=== PATIENT | female | born 1945 | race Caucasian/White ===

== ENCOUNTER 2020-12-22 11:56 | Inpatient (IN) | payer MEDICARE, BC, SELFPAY ==
--- NOTE | ~2020-12-22 | XR_ITS ---
EXAMINATION: XR CHEST CLINICAL INFORMATION: Cough, wheezing COMPARISON: None TECHNIQUE: Upright PA and sitting lateral views of the chest are obtained. FINDINGS: There is no hyperinflation. No airspace consolidation or groundglass opacity. The costophrenic sulci are clear. The heart is normal in size. The vascularity is normal. The hilar and mediastinal contours and bony structures are unremarkable. XR/XR chest 2V IMPRESSION: Unremarkable examination.
--- NOTE | 2020-12-22 15:14 | HO.PSYADMNOT ---
HPI Chief Complaint: Unspec Bipolar D/O Anxiety D/O Sources of Information: patient interviewed, chart reviewed and crisis/core team assessment reviewed HPI Subjective Notes: Section 12B Medical Problems Affecting Mental Status: Yes Narrative: The patient is a 75 year old female, , mother of 2 adult children, retired, with good social support, with a previous history of bipolar disorder, fairly controlled until a few weeks with outpatient providers, referred by the ED for exacerbation of psychosis with hallucinations, disorganized behavior and altered mental status. As per the chart, the patient's reported on the last days that the patient became hostile and disorganized, non-compliant with her medications and urinating on herself and refusing care or performing ADL's; at her baseline, she takes care of herself. She also had psychotic symptoms with hallucinations and paranoia. While in the ED, she was uncooperative and unable to be fully assessed. During the initial intake the patient was verbally abusive and refused to be assessed, she went to sleep and awaken 2 hours after; she was very hungry, she ate and later she was pleasant and cooperative. She was unable to remember her agitated mood. She couldn't remember how she got here or why she was referred to the hospital. She stated that she is here because her knee hurts . She denied current hallucinations or paranoia but she looked confused. Past Psychiatric History: History of bipolar treated as an outpatient. Denies substance abuse Medical Evaluation Reviewed: Hospitalist [facility] Pending She has Parkinson's disease, chronic renal failure and other comorbilities PMFSH Family History: Denies Social History: , mother of 2 adult children, with good social support by her who is her primary support group. Went to college. Substance History: Denies Trauma History: Denies Meds/Allergies Meds Home Medications Acetaminophen (Acetaminophen 325 Mg Tablet) 650 mg PO Q6H PRN PRN Reason: Headache/Pain Mild Scale (1-3) Al Hydroxide/Mg Hydroxide (Magnesium Hydrox/Alum Hydrox 30 Ml Oral.Susp) 30 ml PO Q6H PRN PRN Reason: Heartburn/Nausea Hydroxyzine HCl (Hydroxyzine Hcl 25 Mg Tablet) 25 mg PO BEDTIME PRN PRN Reason: Anxiety Magnesium Hydroxide (Milk Of Magnesia 30 Ml Oral.Susp) 30 ml PO DAILY PRN PRN Reason: Constipation Trazodone HCl (Trazodone Hcl 50 Mg Tablet) 50 mg PO BEDTIME PRN PRN Reason: Insomnia Allergies Allergies Allergy/AdvReac Type Severity Reaction Status Date / Time thioridazine [From Mellaril] Allergy Unknown Unknown Verified 12/22/20 13:25 Mental Status Exam Mental Status Exam Patient Appearance: Fatigued (on hospital gowns) and Disheveled Level of Consciousness: Awake and Disoriented Patient Behavior: Cooperative and Restless Mood Description: Withdrawn Affect Description: Labile Patient Cognition Impaired: No Speech Pattern: Clear and Rapid Hallucinations: None (at this moment) Delusions: Not Present Thought Process: Distracted and Slowed Thinking Thought Content: positive for Poverty of Content, positive for Slowed Thinking and positive for Disorganized Abnormal Motor Activity Signs and Symptoms: Psychomotor Retardation Judgement: Poor Assessment & Plan Assessment & Plan (1) Bipolar disorder: Status: Acute Code(s): F31.9 - Bipolar disorder, unspecified (2) Delirium: Status: Acute Code(s): R41.0 - Disorientation, unspecified (3) Parkinson disease: Status: Acute Code(s): G20 - Parkinson's disease Assessment and Plan: Elderly female with good social support with the history of Bipolar disorder, Parkinson's disease and admitted for acute changes on her mental status with psychotic symptoms, unable to take care of her ADL's and agitation. Plan: Continue Zyprexa 5 mg po qhs and Depakote. Gather collateral information. VALP and other bloodwork. Reason for continued inpatient stay Substantial Risk for: harm to self, harm to others, inability to function, rapid decompensation and med/psych decompensation
--- NOTE | 2020-12-22 16:43 | PC.NURSE ---
Addendum entered by Genevieve Berg RN 12/22/20 17:04: Patient has a history of Parkinsons disease and suffers from tremors which will require her to need assist with feeding. Original Note: Patient arrived on unit via stretcher from [facility] through [facility]. Legal status is 12B. Patient was oriented to self only. Upon arrival patient was refusing to speak and when she did she was agitated and uncooperative. She was admitted to her room and settled into bed. Oriented to room. Refused vitals and also refused to participate in admission assessment. Patient had strong body odor. Very flaky dry skin. Hair dirty and disheveled. Wearing hospital gown and bottoms with R knee brace on the outside. No observable alteration to skin integrity other than dryness. Patient uses a walker and is a one assist to BR. She was instructed almond paste mixer griffith and did use it to call for help when she needed to use bathroom. Speech was clear however memory is not intact. Patient has a recent history of Auditory Hallucinations , insomnia, anxiety and agitation. 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 She lives at home with her and the plan is to return to home following medication stabilization and diagnostic clarification. Patient did allow vital signs to be taken and began to open up slightly to staff. Admission assessment was completed with collateral information and through phone conversation with . Consult with hospitalist ordered. Routine admission orders entered by Dr. Turner. Patient to be on 5 minute checks.
[2020-12-22 18:00] VITALS: BP 122/59; PULSE 91; RESP 16; TEMP 36.5; O2SAT 96
[2020-12-22] MEDS: Carbidopa/Levodopa 25/100 TABLET 1 TAB PO (20:41)
[2020-12-22] MEDS: OLANZapine 5 MG TABLET PO (20:41)
[2020-12-22] MEDS: Acetaminophen 325 MG TABLET 650 MG PO (20:57)
[2020-12-22 21:50] LABS: Glucose, Whole Blood 125 mg/dL (60-115)
[2020-12-23] MEDS: Levothyroxine Sodium 75 MCG TABLET PO (05:36)
[2020-12-23 06:00] VITALS: BP 124/64; PULSE 81; RESP 18; TEMP 36.4; O2SAT 98
[2020-12-23 07:11] LABS: Estimated Average Glucose 117 mg/dL; Hemoglobin A1c % 5.7 %
[2020-12-23 07:29] LABS: Alanine Aminotransferase < 6 U/L (0-31); Albumin Level 3.7 g/dL (3.5-5.0); Alkaline Phosphatase 73 U/L (39-117); Anion Gap 13 (12-20); Aspartate Amino Transferase 8 U/L (5-31); Bilirubin Direct 0.2 mg/dL (0.0-0.5); Bilirubin Total 0.5 mg/dL (0.0-1.0); Blood Urea Nitrogen 29 mg/dL (9-16); Calcium 10.1 mg/dL (8.4-10.2); Carbon Dioxide 24 mmol/L (22-29); Chloride 111 mmol/L (96-108); Cholesterol 157 mg/dL; Estimated Glomerular Filt Rate 18; Glucose Random 102 mg/dL (60-115); HDL Cholesterol 43 mg/dL; LDL Cholesterol Calculated 92 mg/dl; Potassium 4.2 mmol/L (3.3-5.1); Sodium 144 mmol/L (135-145); Total Protein 6.1 g/dL (6.5-8.0); Triglycerides 114 mg/dL
[2020-12-23 07:35] LABS: Valproate 35.8 mcg/mL (50.0-100.0)
[2020-12-23 07:49] LABS: Thyroid Stimulating Hormone 0.43 uIU/mL (0.32-4.0)
[2020-12-23 08:47] VITALS: BP 126/60; PULSE 78
[2020-12-23] MEDS: amLODIPine Besylate 2.5 MG TABLET PO (08:47)
[2020-12-23] MEDS: Carbidopa/Levodopa 25/100 TABLET 1 TAB PO ×3 (08:47→21:08)
[2020-12-23] MEDS: Folic Acid 1 MG TABLET PO (08:47)
[2020-12-23] MEDS: Acetaminophen 325 MG TABLET 650 MG PO (09:22)
[2020-12-23 10:11] LABS: Glucose, Whole Blood 198 mg/dL (60-115)
--- NOTE | 2020-12-23 13:18 | P.PNPSI_ITS ---
Subjective Subjective Date of Service: 12/23/20 Reason For Visit: Unspec Bipolar D/O Anxiety D/O Interim History: The patient was agitated today at AM with the hospitalist and refused to be examined. She complained of knee pain. Her Depakote level was low today AM and CR on 2.65 (chronic). Mental Status Exam Mental Status Exam Patient Appearance: Disheveled (on hospital gowns) Patient Orientation: Person Level of Consciousness: Awake, Sedated and Disoriented Patient Behavior: Belligerent and Sedated Mood Description: Fearful and Hostile Affect Description: Constricted Patient Cognition Impaired: Yes Ability to Follow Directions: Poor Speech Pattern: Loud Hallucinations: None Delusions: Paranoid Ideation Thought Process: Illogical Thought Content: positive for [place] and positive for Circumstantial Judgement: Poor Diagnostics Vital Signs (24Hr): Vital Signs - 24 hr 12/22/20 18:00 12/23/20 06:00 12/23/20 08:47 Temperature 97.7 F 97.5 F Pulse Rate 91 81 78 Respiratory Rate 16 18 Blood Pressure 122/59 L 124/64 126/60 Pulse Oximetry 96 98 Labs Results: 12/23/20 06:42 Labs: Laboratory Results - last 48 hr 12/22/20 12/23/20 12/23/20 21:46 06:42 06:42 Sodium 144 Potassium 4.2 Chloride 111 H Carbon Dioxide 24 Anion Gap 13 BUN 29 H Creatinine 2.65 H Estim Creat Clear Calc TNP Estimated GFR 18 POC Glucose 125 H Random Glucose 102 Estimat Average Glucose 117 Hemoglobin A1c % 5.7 Calcium 10.1 Total Bilirubin 0.5 Direct Bilirubin 0.2 AST 8 ALT < 6 Alkaline Phosphatase 73 Total Protein 6.1 L Albumin 3.7 Triglycerides 114 Cholesterol 157 LDL Cholesterol, Calc 92 HDL Cholesterol 43 TSH 0.43 Valproic Acid 35.8 L 12/23/20 10:08 Sodium Potassium Chloride Carbon Dioxide Anion Gap BUN Creatinine Estim Creat Clear Calc Estimated GFR POC Glucose 198 H Random Glucose Estimat Average Glucose Hemoglobin A1c % Calcium Total Bilirubin Direct Bilirubin AST ALT Alkaline Phosphatase Total Protein Albumin Triglycerides Cholesterol LDL Cholesterol, Calc HDL Cholesterol TSH Valproic Acid Medications Medications Current Medications Generic Name Dose Route Start Last Admin Trade Name Freq PRN Reason Stop Dose Admin Acetaminophen 650 mg 12/22/20 14:39 12/23/20 09:22 Acetaminophen 325 Mg Tablet PO 650 mg Q6H PRN Administration Headache/Pain Mild Scale (1-3) Al Hydroxide/Mg Hydroxide 30 ml 12/22/20 14:39 Magnesium Hydrox/Alum Hydrox 30 Ml Oral.Susp PO Q6H PRN Heartburn/Nausea Amlodipine Besylate 2.5 mg 12/23/20 09:00 12/23/20 08:47 Amlodipine Besylate 2.5 Mg Tablet PO 2.5 mg DAILY ANSHUL Administration Protocol Carbidopa/Levodopa 1 tab 12/22/20 21:00 12/23/20 08:47 Carbidopa/Levodopa 25/100 Tablet PO 1 tab TID ANSHUL Administration Folic Acid 1 mg 12/23/20 09:00 12/23/20 08:47 Folic Acid 1 Mg Tablet PO 1 mg DAILY ANSHUL Administration Hydroxyzine HCl 25 mg 12/22/20 14:39 Hydroxyzine Hcl 25 Mg Tablet PO BEDTIME PRN Anxiety Levothyroxine Sodium 75 mcg 12/23/20 06:00 12/23/20 05:36 Levothyroxine Sodium 75 Mcg Tablet PO 75 mcg DAILY@0600 [facility] Administration Magnesium Hydroxide 30 ml 12/22/20 14:39 Milk Of Magnesia 30 Ml Oral.Susp PO DAILY PRN Constipation Olanzapine 7.5 mg 12/23/20 21:00 Olanzapine 7.5 Mg Tablet PO BEDTIME ANSHUL Trazodone HCl 50 mg 12/22/20 14:39 Trazodone Hcl 50 Mg Tablet PO BEDTIME PRN Insomnia Valproic Acid 250 mg 12/23/20 15:00 Valproic Acid (As Sodium Salt) 250 Mg/5 Ml Solution PO TID [facility] Allergies Allergies Allergy/AdvReac Type Severity Reaction Status Date / Time thioridazine [From Mellaril] Allergy Unknown Unknown Verified 12/22/20 13:25 Assessment & Plan Assessment & Plan (1) Bipolar disorder: Status: Acute Code(s): F31.9 - Bipolar disorder, unspecified (2) Delirium: Status: Acute Code(s): R41.0 - Disorientation, unspecified (3) Parkinson disease: Status: Acute Code(s): G20 - Parkinson's disease Assessment and Plan: Elderly female with good social support with the history of Bipolar disorder, Parkinson's disease and admitted for acute changes on her mental status with psychotic symptoms, unable to take care of her ADL's and agitation. Plan: Increase Zyprexa up to 7.5 mg po qhs Increase Depakene up to 250 mg po tid. Gather collateral information. VALP for Saturday Greater than 50% of the session was spent on counseling and/or coordination of care Reason for contiued inpatient stay Substantial Risk for: harm to self, harm to others, inability to function, rapid decompensation and med/psych decompensation
--- NOTE | 2020-12-23 13:43 | MHC.CLN ---
NUTRITION PATIENT ASLEEP AT TIME OF VISIT. NO HEIGHT OR WEIGHT RECORDED BUT APPEARS WELL NOURISHED. DID NOT EAT LUNCH. 2-13# WEIGHT LOSS PER NURSING BUT UNABLE TO DETERMINE AMOUNT OR TIMEFRAME. MEDICAL HX INCLUDES PARKINSON'S AND CHRONIC RENAL FAILURE. POC BLOOD SLFXRV=[id number] AND 198. DIET=LOW SODIUM, 2 GRAM SODIUM. WILL FOLLOW UP FOR WEIGHT, HEIGHT, THERAPEUTIC DIET.
[2020-12-23 16:01] VITALS: BP 96/52; PULSE 84; RESP 18; TEMP 36.6; O2SAT 94
[2020-12-23 18:47] LABS: Folate 19.7 ng/mL (> or = 4.0); Vitamin B12 276 pg/mL (200-900)
[2020-12-23] MEDS: OLANZapine 7.5 MG TABLET PO (21:08)
--- NOTE | 2020-12-23 21:13 | CONS_ITS ---
DATE OF SERVICE: 12/23/2020 REASON FOR CONSULTATION: Medical management for kidney disease, Parkinson disease, and knee pain. CONSULTING PHYSICIAN: Juan F Turner MD HISTORY OF PRESENTING ILLNESS: This is a 75-year-old female patient with past medical history significant for bipolar disorder, was brought into [facility] due to exacerbation of psychosis with hallucination, disorganized behavior, and altered mental status. At present, the patient is resting in bed, complaining of knee pain, but upon asking further questions how long she has pain for and when the pain occurs, patient became more agitated and refused to provide any further detailed history and she refused to talk any further and also refused examination. Therefore, obtained most of the history from admission note. PAST MEDICAL HISTORY: Significant for, 1. Parkinson disease. 2. History of chronic kidney disease. 3. History of bipolar disorder. SOCIAL HISTORY: The patient lives at home with her . No history of smoking or illicit drug use. MEDICATIONS: Tylenol 325 q.4-6 hours as needed, amlodipine 5 mg daily, carbidopa/levodopa 25/100 t.i.d., vitamin D3 1000 unit daily, folic acid 1 mg daily, levothyroxine 75 mcg daily, Myrbetriq 25 by mouth daily, olanzapine 5 mg daily, sodium bicarbonate 650 b.i.d., and valproic acid 750 mg b.i.d. ALLERGIES: SHE IS ALLERGIC TO THIORIDAZINE (MELLARIL), UNKNOWN ALLERGY. REVIEW OF SYSTEMS: Unable to obtain, although patient denies any headache, dizziness, no chest pain. PHYSICAL EXAMINATION: Patient only allowed to examine her knees. KNEE EXAMINATION: Right knee, patient has a brace on that was removed. The right knee has no redness, no warmth. No effusion noted. The patient does not allow to do any further detailed examination, refused flexion or extension. LABORATORY DATA: Sodium 144, potassium 4.2, chloride 111, bicarb of 24, BUN 29, creatinine of 2.65, blood sugar 198, hemoglobin A1c of 5.7, total protein 6.1, albumin 3.7, total cholesterol 157 with an HDL of 43, LDL 92, TSH 0.43. IMAGING STUDIES: None obtained. ASSESSMENT AND PLAN: This is a 75-year-old female admitted to [facility] due to exacerbation of psychosis. 1. Knee pain. It seems patient has chronic degenerative arthritis. Symptoms are going on for a long time, there is no evidence of acute infection, septic arthritis, or gout. No tenderness on anserine bursitis. We will recommend to use Tylenol 3 times a day, continue to use a knee brace during daytime and remove at night. Outpatient followup with Orthopedic Surgery. 2. Chronic kidney disease. Try to avoid nephrotoxic medications. Continue soda bicarb 650 mg t.i.d. Recommend outpatient followup with her agricultural appraiser. 3. Parkinson disease. The patient does not have any tremor. Speech is clear. Recommend to continue current medications, although could be contributing to current psychosis and hallucinations, needs to be addressed by the patient's primary neurologist. 4. Deep vein thrombosis prophylaxis. The patient will need deep vein thrombosis prophylaxis. If unable to ambulate, may use pneumatic compression boots on low-dose heparin. MD SABINO Agrawal/MANISHA / [id number] MTDD
[2020-12-24] MEDS: traZODone HCL 50 MG TABLET PO ×2 (01:56→19:45)
[2020-12-24] MEDS: Acetaminophen 325 MG TABLET 650 MG PO ×2 (03:29→19:45)
[2020-12-24] MEDS: hydrOXYzine HCL 25 MG TABLET PO ×2 (03:37→19:45)
[2020-12-24 05:53] LABS: Glucose, Whole Blood 127 mg/dL (60-115)
[2020-12-24] MEDS: Levothyroxine Sodium 75 MCG TABLET PO (05:54)
[2020-12-24 06:00] VITALS: BP 125/60; PULSE 98; TEMP 35.9; O2SAT 98
[2020-12-24] MEDS: Carbidopa/Levodopa 25/100 TABLET 1 TAB PO ×3 (08:31→19:45)
[2020-12-24 08:32] VITALS: BP 125/60; PULSE 98
[2020-12-24] MEDS: Folic Acid 1 MG TABLET PO (08:32)
[2020-12-24] MEDS: amLODIPine Besylate 2.5 MG TABLET PO (08:32)
--- NOTE | 2020-12-24 16:12 | PC.NURSE ---
Patient refused to get out of bed this shift. When asked to do anything she would reply, leave me alone or you are going to and I have the power to kill you. She refuses any hygiene assistance. She will not engage at all. She has been med compliant. Hospitalist suggested Pneumatic boots if patient was going to remain in bed. Orders not in yet. Unable to collect urine for urinalysis at this time. Fine tremors noted due to history of Parkinsons. 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
[2020-12-24 17:32] VITALS: BP 127/67; PULSE 95; RESP 16; TEMP 36.9; O2SAT 97
[2020-12-24] MEDS: OLANZapine 7.5 MG TABLET PO (19:45)
[2020-12-24 20:10] LABS: Hemoglobin 10.2 g/dl (12.0-16.0); Mean Corpuscular HGB Conc 31.9 g/dl (31.0-35.0); Mean Corpuscular Hemoglobin 30.6 pg (27.0-33.0); Mean Corpuscular Volume 96.1 fL (80-98); Platelet Count 213 X10*3/uL (160-400); Red Blood Count 3.33 X10*6/uL (4.20-5.50); Red Cell Distribution Width 12.4 % (11.0-16.0); White Blood Count 7.5 X10*3/uL (4.8-10.8)
--- NOTE | 2020-12-25 00:01 | HO.PSYCHPN ---
Subjective Subjective Date of Service: 12/25/20 Reason For Visit: Unspec Bipolar D/O Anxiety D/O Interim History: This note reflects events on 12/24/20 Patient seen. DW team. [facility] medicine. Patient is isolated in her room. Refuses to leave the room. She is difficult to engage. She is irritable. Medication Compliance: Yes Side effects from medications: No Attending Groups: No Mental Status Exam Mental Status Exam Patient Appearance: Disheveled (on hospital gowns) Patient Orientation: Person Level of Consciousness: Awake, Sedated and Disoriented Patient Behavior: Guarded, Belligerent, Sedated, Resistive to Care, Isolative, Uncooperative and Poor Eye Contact Mood Description: Fearful, Hostile and Angry Affect Description: Suspicious, Constricted and Angry Patient Cognition Impaired: Yes Ability to Follow Directions: Poor Speech Pattern: Loud Hallucinations: None Delusions: Paranoid Ideation Thought Content: positive for Poverty of Content and positive for Slowed Thinking Abnormal Motor Activity Signs and Symptoms: Psychomotor Retardation Judgement: Poor Diagnostics Vital Signs (24Hr): Vital Signs - 24 hr 12/24/20 06:00 12/24/20 08:32 12/24/20 17:32 Temperature 96.6 F L 98.5 F Pulse Rate 98 98 95 Respiratory Rate 16 Blood Pressure 125/60 125/60 127/67 Pulse Oximetry 98 97 Labs Results: 12/24/20 19:51 12/23/20 06:42 Labs: Laboratory Results - last 48 hr 12/23/20 12/23/20 12/23/20 06:42 06:42 06:42 WBC RBC Hgb Hct MCV MCH MCHC RDW Plt Count MPV Absolute Nucleated RBC Nucleated RBC % (auto) Sodium 144 Potassium 4.2 Chloride 111 H Carbon Dioxide 24 Anion Gap 13 BUN 29 H Creatinine 2.65 H Estim Creat Clear Calc TNP Estimated GFR 18 POC Glucose Random Glucose 102 Estimat Average Glucose 117 Hemoglobin A1c % 5.7 Calcium 10.1 Total Bilirubin 0.5 Direct Bilirubin 0.2 AST 8 ALT < 6 Alkaline Phosphatase 73 Total Protein 6.1 L Albumin 3.7 Triglycerides 114 Cholesterol 157 LDL Cholesterol, Calc 92 HDL Cholesterol 43 Vitamin B12 276 Folate 19.7 TSH 0.43 Valproic Acid 35.8 L 12/23/20 12/24/20 12/24/20 10:08 05:49 19:51 WBC 7.5 RBC 3.33 L Hgb 10.2 L Hct 32.0 L MCV 96.1 MCH 30.6 MCHC 31.9 RDW 12.4 Plt Count 213 MPV 10.0 Absolute Nucleated RBC 0.000 Nucleated RBC % (auto) 0.0 Sodium Potassium Chloride Carbon Dioxide Anion Gap BUN Creatinine Estim Creat Clear Calc Estimated GFR POC Glucose 198 H 127 H Random Glucose Estimat Average Glucose Hemoglobin A1c % Calcium Total Bilirubin Direct Bilirubin AST ALT Alkaline Phosphatase Total Protein Albumin Triglycerides Cholesterol LDL Cholesterol, Calc HDL Cholesterol Vitamin B12 Folate TSH Valproic Acid Medications Medications Current Medications Generic Name Dose Route Start Last Admin Trade Name Freq PRN Reason Stop Dose Admin Acetaminophen 650 mg 12/22/20 14:39 12/24/20 19:45 Acetaminophen 325 Mg Tablet PO 650 mg Q6H PRN Administration Headache/Pain Mild Scale (1-3) Al Hydroxide/Mg Hydroxide 30 ml 12/22/20 14:39 Magnesium Hydrox/Alum Hydrox 30 Ml Oral.Susp PO Q6H PRN Heartburn/Nausea Amlodipine Besylate 2.5 mg 12/23/20 09:00 12/24/20 08:32 Amlodipine Besylate 2.5 Mg Tablet PO 2.5 mg DAILY ANSHUL Administration Protocol Carbidopa/Levodopa 1 tab 12/22/20 21:00 12/24/20 19:45 Carbidopa/Levodopa 25/100 Tablet PO 1 tab TID ANSHUL Administration Folic Acid 1 mg 12/23/20 09:00 12/24/20 08:32 Folic Acid 1 Mg Tablet PO 1 mg DAILY ANSHUL Administration Hydroxyzine HCl 25 mg 12/22/20 14:39 12/24/20 19:45 Hydroxyzine Hcl 25 Mg Tablet PO 25 mg BEDTIME PRN Administration Anxiety Levothyroxine Sodium 75 mcg 12/23/20 06:00 12/24/20 05:54 Levothyroxine Sodium 75 Mcg Tablet PO 75 mcg DAILY@0600 ANSHUL Administration Magnesium Hydroxide 30 ml 12/22/20 14:39 Milk Of Magnesia 30 Ml Oral.Susp PO DAILY PRN Constipation Olanzapine 7.5 mg 12/23/20 21:00 12/24/20 19:45 Olanzapine 7.5 Mg Tablet PO 7.5 mg BEDTIME ANSHUL Administration Trazodone HCl 50 mg 12/22/20 14:39 12/24/20 19:45 Trazodone Hcl 50 Mg Tablet PO 50 mg BEDTIME PRN Administration Insomnia Valproic Acid 250 mg 12/23/20 15:00 12/24/20 19:45 Valproic Acid (As Sodium Salt) 250 Mg/5 Ml Solution PO 250 mg TID ANSHUL Administration Allergies Allergies Allergy/AdvReac Type Severity Reaction Status Date / Time thioridazine [From Mellaril] Allergy Unknown Unknown Verified 12/22/20 13:25 Assessment & Plan Assessment & Plan (1) Bipolar disorder: Status: Acute Code(s): F31.9 - Bipolar disorder, unspecified (2) Delirium: Status: Acute Code(s): R41.0 - Disorientation, unspecified (3) Parkinson disease: Status: Acute Code(s): G20 - Parkinson's disease Assessment and Plan: Elderly female with good social support with the history of Bipolar disorder, Parkinson's disease and admitted for acute changes on her mental status with psychotic symptoms, unable to take care of her ADL's and agitation. Plan: Zyprexa 7.5 mg po qhs Depakene up to 250 mg po tid. Gather collateral information. VALP for Saturday Greater than 50% of the session was spent on counseling and/or coordination of care Reason for contiued inpatient stay Substantial Risk for: inability to function and rapid decompensation
[2020-12-25] MEDS: traZODone HCL 50 MG TABLET PO ×3 (00:23→23:44)
[2020-12-25 02:11] LABS: Glucose, Whole Blood 149 mg/dL (60-115)
[2020-12-25] MEDS: Levothyroxine Sodium 75 MCG TABLET PO (05:15)
[2020-12-25 06:00] VITALS: BP 123/60; PULSE 81; RESP 16; TEMP 36.7; O2SAT 98
[2020-12-25 08:43] VITALS: BP 127/62; PULSE 100
[2020-12-25] MEDS: Carbidopa/Levodopa 25/100 TABLET 1 TAB PO ×3 (08:43→20:34)
[2020-12-25] MEDS: Folic Acid 1 MG TABLET PO (08:43)
[2020-12-25] MEDS: amLODIPine Besylate 2.5 MG TABLET PO (08:43)
[2020-12-25 08:53] VITALS: BP 127/62; PULSE 100; RESP 16; TEMP 36.7; O2SAT 95
[2020-12-25 09:24] LABS: Glucose Urine UA NEG (NEG); Leukocyte Esterase Urine 3+ (NEG); Nitrite Urine NEG (NEG); Urine Blood NEG (NEG); Urine Ketones NEG (NEG); Urine Protein NEG (NEG-TRACE)
[2020-12-25 09:52] LABS: Appearance Urine HAZY; Color Urine YELLOW
[2020-12-25 09:53] LABS: Bacteria Urine 2+ /LPF; RBC Urine 0 /HPF (0); Squamous Epithelial Cell Urine 1+ /LPF; WBC Urine 30-49 /HPF (0-4)
[2020-12-25 10:03] LABS: Glucose, Whole Blood 149 mg/dL (60-115)
--- NOTE | 2020-12-25 12:49 | PC.NURSE ---
Patient extremely agitated this shift when this cardroom manager attempts any interaction with her. That being said, she did get out of bed x2 to go to . She initially was uncooperative and did not want to do it but eventually agreed. She continues to yell, You are going to , my gods are going to kill you. She was washed up this morning while on the Toilet and changed into clean gown. She is compliant with meds after initally resisting. Her appetite is good. She exhibits fine Parkinsons tremors but is able to feed herself without assist. Valproic acid level 35.8 .(low) Hair is matted and very dirty but have not been able to get patient into shower at this time.
[2020-12-25] MEDS: Acetaminophen 325 MG TABLET 650 MG PO ×2 (13:27→20:33)
--- NOTE | 2020-12-25 14:06 | HO.PSYCHPN ---
Subjective Subjective Date of Service: 12/25/20 Reason For Visit: Unspec Bipolar D/O Anxiety D/O Interim History: Patient seen. DW team. Patient is isolated in her room. Refuses to leave the room. She is difficult to engage. She is irritable. She was incontinent of urine x 2. refusing wheelchair to leave the room. Gets angry at nursing and told one of the nurses she is going to . Platelets were normal. Mental Status Exam Mental Status Exam Patient Appearance: Disheveled (on hospital gowns) Patient Orientation: Person Level of Consciousness: Awake, Sedated and Disoriented Patient Behavior: Guarded, Belligerent, Sedated, Resistive to Care, Isolative, Uncooperative and Poor Eye Contact Mood Description: Fearful, Hostile and Angry Affect Description: Suspicious, Constricted and Angry Patient Cognition Impaired: Yes Ability to Follow Directions: Poor Speech Pattern: Clear, Impoverished and Loud Delusions: Paranoid Ideation Thought Process: Slowed Thinking Thought Content: positive for Poverty of Content, positive for Preoccupation and positive for Slowed Thinking Depressive Symptoms: Hopelessness and Isolating-Friends/Family Abnormal Motor Activity Signs and Symptoms: Psychomotor Retardation and Tremors Judgement: Poor Diagnostics Vital Signs (24Hr): Vital Signs - 24 hr 12/24/20 17:32 12/25/20 06:00 12/25/20 08:43 Temperature 98.5 F 98.1 F Pulse Rate 95 81 100 Respiratory Rate 16 16 Blood Pressure 127/67 123/60 127/62 Pulse Oximetry 97 98 12/25/20 08:53 Temperature 98.0 F Pulse Rate 100 Respiratory Rate 16 Blood Pressure 127/62 Pulse Oximetry 95 Labs Results: 12/24/20 19:51 12/23/20 06:42 Labs: Laboratory Results - last 48 hr 12/23/20 12/24/20 12/24/20 06:42 05:49 19:51 WBC 7.5 RBC 3.33 L Hgb 10.2 L Hct 32.0 L MCV 96.1 MCH 30.6 MCHC 31.9 RDW 12.4 Plt Count 213 MPV 10.0 Absolute Nucleated RBC 0.000 Nucleated RBC % (auto) 0.0 POC Glucose 127 H Vitamin B12 276 Folate 19.7 Urine Color Urine Appearance Urine pH Ur Specific [place] Urine Protein Urine Glucose (UA) Urine Ketones Urine Blood Urine Nitrite Ur Leukocyte Esterase Urine RBC Urine WBC Ur Squamous Epith Cells Urine Bacteria 12/24/20 12/25/20 12/25/20 21:03 09:58 Unknown WBC RBC Hgb Hct MCV MCH MCHC RDW Plt Count MPV Absolute Nucleated RBC Nucleated RBC % (auto) POC Glucose 149 H 149 H Vitamin B12 Folate Urine Color YELLOW Urine Appearance HAZY Urine pH 6.0 Ur Specific [place] 1.010 Urine Protein NEG Urine Glucose (UA) NEG Urine Ketones NEG Urine Blood NEG Urine Nitrite NEG Ur Leukocyte Esterase 3+ H Urine RBC 0 Urine WBC 30-49 H Ur Squamous Epith Cells 1+ Urine Bacteria 2+ Medications Medications Current Medications Generic Name Dose Route Start Last Admin Trade Name Freq PRN Reason Stop Dose Admin Acetaminophen 650 mg 12/22/20 14:39 12/25/20 13:27 Acetaminophen 325 Mg Tablet PO 650 mg Q6H PRN Administration Headache/Pain Mild Scale (1-3) Al Hydroxide/Mg Hydroxide 30 ml 12/22/20 14:39 Magnesium Hydrox/Alum Hydrox 30 Ml Oral.Susp PO Q6H PRN Heartburn/Nausea Amlodipine Besylate 2.5 mg 12/23/20 09:00 12/25/20 08:43 Amlodipine Besylate 2.5 Mg Tablet PO 2.5 mg DAILY ANSHUL Administration Protocol Carbidopa/Levodopa 1 tab 12/22/20 21:00 12/25/20 08:43 Carbidopa/Levodopa 25/100 Tablet PO 1 tab TID ANSHUL Administration Folic Acid 1 mg 12/23/20 09:00 12/25/20 08:43 Folic Acid 1 Mg Tablet PO 1 mg DAILY ANSHUL Administration Hydroxyzine HCl 25 mg 12/22/20 14:39 12/24/20 19:45 Hydroxyzine Hcl 25 Mg Tablet PO 25 mg BEDTIME PRN Administration Anxiety Levothyroxine Sodium 75 mcg 12/23/20 06:00 12/25/20 05:15 Levothyroxine Sodium 75 Mcg Tablet PO 75 mcg DAILY@0600 ANSHUL Administration Magnesium Hydroxide 30 ml 12/22/20 14:39 Milk Of Magnesia 30 Ml Oral.Susp PO DAILY PRN Constipation Medication 5,000 each 12/25/20 09:15 No Anticoagulant-Heparin Sq Ok MISCELLANE BID ANSHUL Olanzapine 7.5 mg 12/23/20 21:00 12/24/20 19:45 Olanzapine 7.5 Mg Tablet PO 7.5 mg BEDTIME ANSHUL Administration Trazodone HCl 50 mg 12/22/20 14:39 12/25/20 00:23 Trazodone Hcl 50 Mg Tablet PO 50 mg BEDTIME PRN Administration Insomnia Valproic Acid 250 mg 12/23/20 15:00 12/25/20 08:43 Valproic Acid (As Sodium Salt) 250 Mg/5 Ml Solution PO 250 mg TID ANSHUL Administration Allergies Allergies Allergy/AdvReac Type Severity Reaction Status Date / Time thioridazine [From Mellaril] Allergy Unknown Unknown Verified 12/22/20 13:25 Assessment & Plan Assessment & Plan (1) Bipolar disorder: Status: Acute Code(s): F31.9 - Bipolar disorder, unspecified (2) Delirium: Status: Acute Code(s): R41.0 - Disorientation, unspecified (3) Parkinson disease: Status: Acute Code(s): G20 - Parkinson's disease Assessment and Plan: Elderly female with good social support with the history of Bipolar disorder, Parkinson's disease and admitted for acute changes on her mental status with psychotic symptoms, unable to take care of her ADL's and agitation. Plan: Zyprexa 7.5 mg po qhs Depakene up to 250 mg po tid. Gather collateral information. VALP for Saturday Started on heparin SQ for DVT prophylaxis. Greater than 50% of the session was spent on counseling and/or coordination of care Reason for contiued inpatient stay Substantial Risk for: inability to function and rapid decompensation
[2020-12-25 18:00] VITALS: BP 110/66; PULSE 99; RESP 16; TEMP 36.9; O2SAT 96
[2020-12-25] MEDS: OLANZapine 7.5 MG TABLET PO (20:34)
[2020-12-25] MEDS: hydrOXYzine HCL 25 MG TABLET PO (20:34)
[2020-12-25 23:04] LABS: Glucose, Whole Blood 136 mg/dL (60-115)
[2020-12-26] MEDS: Acetaminophen 325 MG TABLET 650 MG PO ×2 (02:11→07:44)
[2020-12-26 06:00] VITALS: BP 114/56; PULSE 86; TEMP 36.8; O2SAT 92
[2020-12-26] MEDS: Heparin Sodium,Porcine 5,000 UNIT/ML VIAL 5000 UNIT SUBCUT (06:30)
[2020-12-26] MEDS: Levothyroxine Sodium 75 MCG TABLET PO (06:31)
--- NOTE | 2020-12-26 08:06 | P.PNPSI_ITS ---
Subjective Subjective Date of Service: 12/26/20 Reason For Visit: Unspec Bipolar D/O Anxiety D/O Interim History: The patient has been threatening staff you are going to . She complained of knee pain mostly at HS. She was assessed at bedside and she looked confused. U/A positive for leukocitosis and blood. valp is low Review of Systems Acute medical concerns: Yes UTI Medical Review of Systems: changed Mental Status Exam Mental Status Exam Patient Appearance: Appropriate (on hospital gowns) Patient Orientation: Person Level of Consciousness: Drowsy and Sedated Patient Behavior: Guarded Mood Description: Suspicious and Withdrawn Affect Description: Constricted Patient Cognition Impaired: Yes Speech Pattern: Clear Memory Description: Remote Impaired and Immediate Impaired Hallucinations: None Delusions: Paranoid Ideation and Grandiose Thought Process: Distracted Thought Content: positive for Circumstantial and positive for Loose Associations Judgement: Poor Diagnostics Vital Signs (24Hr): Vital Signs - 24 hr 12/25/20 08:43 12/25/20 08:53 12/25/20 18:00 Temperature 98.0 F 98.5 F Pulse Rate 100 100 99 Respiratory Rate 16 16 Blood Pressure 127/62 127/62 110/66 Pulse Oximetry 95 96 12/26/20 06:00 Temperature 98.2 F Pulse Rate 86 Respiratory Rate Blood Pressure 114/56 L Pulse Oximetry 92 Labs Results: 12/24/20 19:51 12/23/20 06:42 Labs: Laboratory Results - last 48 hr 12/24/20 12/24/20 12/25/20 19:51 21:03 09:58 WBC 7.5 RBC 3.33 L Hgb 10.2 L Hct 32.0 L MCV 96.1 MCH 30.6 MCHC 31.9 RDW 12.4 Plt Count 213 MPV 10.0 Absolute Nucleated RBC 0.000 Nucleated RBC % (auto) 0.0 POC Glucose 149 H 149 H Urine Color Urine Appearance Urine pH Ur Specific [place] Urine Protein Urine Glucose (UA) Urine Ketones Urine Blood Urine Nitrite Ur Leukocyte Esterase Urine RBC Urine WBC Ur Squamous Epith Cells Urine Bacteria 12/25/20 12/25/20 22:59 Unknown WBC RBC Hgb Hct MCV MCH MCHC RDW Plt Count MPV Absolute Nucleated RBC Nucleated RBC % (auto) POC Glucose 136 H Urine Color YELLOW Urine Appearance HAZY Urine pH 6.0 Ur Specific [place] 1.010 Urine Protein NEG Urine Glucose (UA) NEG Urine Ketones NEG Urine Blood NEG Urine Nitrite NEG Ur Leukocyte Esterase 3+ H Urine RBC 0 Urine WBC 30-49 H Ur Squamous Epith Cells 1+ Urine Bacteria 2+ Medications Medications Current Medications Generic Name Dose Route Start Last Admin Trade Name Freq PRN Reason Stop Dose Admin Acetaminophen 650 mg 12/22/20 14:39 12/26/20 07:44 Acetaminophen 325 Mg Tablet PO 650 mg Q6H PRN Administration Headache/Pain Mild Scale (1-3) Al Hydroxide/Mg Hydroxide 30 ml 12/22/20 14:39 Magnesium Hydrox/Alum Hydrox 30 Ml Oral.Susp PO Q6H PRN Heartburn/Nausea Amlodipine Besylate 2.5 mg 12/23/20 09:00 12/25/20 08:43 Amlodipine Besylate 2.5 Mg Tablet PO 2.5 mg DAILY ANSHUL Administration Protocol Carbidopa/Levodopa 1 tab 12/22/20 21:00 12/25/20 20:34 Carbidopa/Levodopa 25/100 Tablet PO 1 tab TID ANSHUL Administration Folic Acid 1 mg 12/23/20 09:00 12/25/20 08:43 Folic Acid 1 Mg Tablet PO 1 mg DAILY ANSHUL Administration Heparin Sodium (Porcine) 5,000 unit 12/26/20 06:00 12/26/20 06:30 Heparin Sodium,Porcine 5,000 Unit/Ml Vial SUBCUT 5,000 unit Q12H ANSHUL Administration Hydroxyzine HCl 25 mg 12/22/20 14:39 12/25/20 20:34 Hydroxyzine Hcl 25 Mg Tablet PO 25 mg BEDTIME PRN Administration Anxiety Levothyroxine Sodium 75 mcg 12/23/20 06:00 12/26/20 06:31 Levothyroxine Sodium 75 Mcg Tablet PO 75 mcg DAILY@0600 ANSHUL Administration Magnesium Hydroxide 30 ml 12/22/20 14:39 Milk Of Magnesia 30 Ml Oral.Susp PO DAILY PRN Constipation Medication 1 each 12/26/20 09:00 No Anticoagulant-Heparin Sq Ok MISCELLANE DAILY ANSHUL Olanzapine 7.5 mg 12/23/20 21:00 12/25/20 20:34 Olanzapine 7.5 Mg Tablet PO 7.5 mg BEDTIME ANSHUL Administration Trazodone HCl 50 mg 12/22/20 14:39 12/25/20 23:44 Trazodone Hcl 50 Mg Tablet PO 50 mg BEDTIME PRN Administration Insomnia Valproic Acid 250 mg 12/23/20 15:00 12/25/20 20:33 Valproic Acid (As Sodium Salt) 250 Mg/5 Ml Solution PO 250 mg TID ANSHUL Administration Allergies Allergies Allergy/AdvReac Type Severity Reaction Status Date / Time thioridazine [From Mellaril] Allergy Unknown Unknown Verified 12/22/20 13:25 Assessment & Plan Assessment & Plan (1) Bipolar disorder: Status: Acute Code(s): F31.9 - Bipolar disorder, unspecified (2) Delirium: Status: Acute Code(s): R41.0 - Disorientation, unspecified (3) Parkinson disease: Status: Acute Code(s): G20 - Parkinson's disease Assessment and Plan: Elderly female with good social support with the history of Bipolar disorder, Parkinson's disease and admitted for acute changes on her mental status with psychotic symptoms, unable to take care of her ADL's and agitation. Plan: keep Zyprexa 7.5 mg po qhs Increase Depakene up to 375 mg po tid. Gather collateral information. VALP for Add Augmentin for UTI Started on heparin SQ for DVT prophylaxis. Greater than 50% of the session was spent on counseling and/or coordination of care Reason for contiued inpatient stay Substantial Risk for: harm to self, harm to others, inability to function, rapid decompensation and med/psych decompensation
[2020-12-26 09:25] VITALS: BP 123/59; PULSE 82
[2020-12-26] MEDS: Carbidopa/Levodopa 25/100 TABLET 1 TAB PO ×3 (09:25→20:46)
[2020-12-26] MEDS: amLODIPine Besylate 2.5 MG TABLET PO (09:25)
[2020-12-26] MEDS: Folic Acid 1 MG TABLET PO (09:25)
[2020-12-26 11:08] VITALS: BMI 27.6
[2020-12-26 11:51] LABS: Glucose, Whole Blood 147 mg/dL (60-115)
[2020-12-26] MEDS: Ibuprofen 600 MG TABLET PO (12:42)
--- NOTE | 2020-12-26 14:12 | MHC.CLN ---
NUTRITION PATIENT ASLEEP AT TIME OF VISIT. BMI=27.6. UNABLE TO OBTAIN WEIGHT HISTORY.
[2020-12-26] MEDS: Amoxicillin/Potassium Clav 500 MG TABLET PO ×2 (14:26→20:47)
[2020-12-26 18:00] VITALS: BP 115/55; PULSE 89; TEMP 36.6; O2SAT 96
[2020-12-26] MEDS: OLANZapine 7.5 MG TABLET PO (20:46)
[2020-12-26 21:51] LABS: Glucose, Whole Blood 132 mg/dL (60-115)
[2020-12-26] MEDS: traZODone HCL 50 MG TABLET PO (22:27)
[2020-12-27] MEDS: Levothyroxine Sodium 75 MCG TABLET PO (05:23)
[2020-12-27] MEDS: Amoxicillin/Potassium Clav 500 MG TABLET PO ×3 (05:23→20:55)
[2020-12-27 09:42] VITALS: BP 135/65; PULSE 106
[2020-12-27] MEDS: amLODIPine Besylate 2.5 MG TABLET PO (09:42)
[2020-12-27] MEDS: Carbidopa/Levodopa 25/100 TABLET 1 TAB PO ×3 (09:42→20:52)
[2020-12-27] MEDS: Folic Acid 1 MG TABLET PO (09:43)
[2020-12-27 11:00] LABS: Glucose, Whole Blood 171 mg/dL (60-115)
[2020-12-27] MEDS: Ibuprofen 600 MG TABLET PO ×2 (11:34→20:53)
--- NOTE | 2020-12-27 11:58 | HO.PSYCHPN ---
Subjective Subjective Date of Service: 12/27/20 Reason For Visit: Unspec Bipolar D/O Anxiety D/O Interim History: The patient has urinated herself in her bed, at periods, she is more awake and alert, sometimes she is agitated. ATB was started yesterday, still on delirium Medication Compliance: Yes Review of Systems Acute medical concerns: Yes UTI Medical Review of Systems: unchanged Diagnostics Vital Signs (24Hr): Vital Signs - 24 hr 12/26/20 18:00 12/27/20 09:42 Temperature 97.9 F Pulse Rate 89 106 H Blood Pressure 115/55 L 135/65 Pulse Oximetry 96 Body Mass Index 27.6 Labs Results: 12/24/20 19:51 12/23/20 06:42 Labs: Laboratory Results - last 48 hr 12/25/20 12/26/20 12/26/20 22:59 07:08 11:43 POC Glucose 136 H 147 H Valproic Acid 26.0 L 12/26/20 12/27/20 21:46 10:55 POC Glucose 132 H 171 H Valproic Acid Medications Medications Current Medications Generic Name Dose Route Start Last Admin Trade Name Freq PRN Reason Stop Dose Admin Acetaminophen 650 mg 12/22/20 14:39 12/26/20 07:44 Acetaminophen 325 Mg Tablet PO 650 mg Q6H PRN Administration Headache/Pain Mild Scale (1-3) Al Hydroxide/Mg Hydroxide 30 ml 12/22/20 14:39 Magnesium Hydrox/Alum Hydrox 30 Ml Oral.Susp PO Q6H PRN Heartburn/Nausea Amlodipine Besylate 2.5 mg 12/23/20 09:00 12/27/20 09:42 Amlodipine Besylate 2.5 Mg Tablet PO 2.5 mg DAILY ANSHUL Administration Protocol Amoxicillin/Clavulanate Potassium 500 mg 12/26/20 14:00 12/27/20 05:23 Amoxicillin/Potassium Clav 500 Mg Tablet PO 500 mg Q8H ANSHUL Administration Carbidopa/Levodopa 1 tab 12/22/20 21:00 12/27/20 09:42 Carbidopa/Levodopa 25/100 Tablet PO 1 tab TID ANSHUL Administration Folic Acid 1 mg 12/23/20 09:00 12/27/20 09:43 Folic Acid 1 Mg Tablet PO 1 mg DAILY ANSHUL Administration Heparin Sodium (Porcine) 5,000 unit 12/26/20 06:00 12/27/20 05:51 Heparin Sodium,Porcine 5,000 Unit/Ml Vial SUBCUT Not Given Q12H ANSHUL Hydroxyzine HCl 25 mg 12/22/20 14:39 12/25/20 20:34 Hydroxyzine Hcl 25 Mg Tablet PO 25 mg BEDTIME PRN Administration Anxiety Ibuprofen 600 mg 12/26/20 11:10 12/27/20 11:34 Ibuprofen 600 Mg Tablet PO 600 mg Q6H PRN Administration Pain, Moderate (Pain Scale 4-6 Levothyroxine Sodium 75 mcg 12/23/20 06:00 12/27/20 05:23 Levothyroxine Sodium 75 Mcg Tablet PO 75 mcg DAILY@0600 ANSHUL Administration Magnesium Hydroxide 30 ml 12/22/20 14:39 Milk Of Magnesia 30 Ml Oral.Susp PO DAILY PRN Constipation Medication 1 each 12/26/20 09:00 No Anticoagulant-Heparin Sq Ok MISCELLANE DAILY ANSHUL Olanzapine 7.5 mg 12/23/20 21:00 12/26/20 20:46 Olanzapine 7.5 Mg Tablet PO 7.5 mg BEDTIME ANSHUL Administration Trazodone HCl 50 mg 12/22/20 14:39 12/26/20 22:27 Trazodone Hcl 50 Mg Tablet PO 50 mg BEDTIME PRN Administration Insomnia Valproic Acid 375 mg 12/26/20 15:00 12/27/20 09:45 Valproic Acid (As Sodium Salt) 250 Mg/5 Ml Solution PO 375 mg TID ANSHUL Administration Allergies Allergies Allergy/AdvReac Type Severity Reaction Status Date / Time thioridazine [From Mellaril] Allergy Unknown Unknown Verified 12/22/20 13:25 Assessment & Plan Assessment & Plan (1) Bipolar disorder: Status: Acute Code(s): F31.9 - Bipolar disorder, unspecified (2) Delirium: Status: Acute Code(s): R41.0 - Disorientation, unspecified (3) Parkinson disease: Status: Acute Code(s): G20 - Parkinson's disease Assessment and Plan: Elderly female with good social support with the history of Bipolar disorder, Parkinson's disease and admitted for acute changes on her mental status with psychotic symptoms, unable to take care of her ADL's and agitation. Plan: keep Zyprexa 7.5 mg po qhs Increase Depakene up to 375 mg po tid. Gather collateral information. VALP for AM Add Augmentin for UTI Started on heparin SQ for DVT prophylaxis. Greater than 50% of the session was spent on counseling and/or coordination of care Reason for contiued inpatient stay Substantial Risk for: inability to function, rapid decompensation and med/psych decompensation
[2020-12-27] MEDS: Acetaminophen 325 MG TABLET 650 MG PO (16:31)
[2020-12-27] MEDS: Heparin Sodium,Porcine 5,000 UNIT/ML VIAL 5000 UNIT SUBCUT (17:50)
[2020-12-27 18:00] VITALS: BP 122/57; PULSE 127; RESP 16; TEMP 37.4; O2SAT 95
[2020-12-27] MEDS: OLANZapine 7.5 MG TABLET PO (20:52)
[2020-12-27] MEDS: traZODone HCL 50 MG TABLET PO (20:52)
[2020-12-27 21:08] LABS: Glucose, Whole Blood 170 mg/dL (60-115)
[2020-12-27 22:00] VITALS: BP 114/58; PULSE 108; RESP 18; TEMP 37.6; O2SAT 94
[2020-12-28 05:36] VITALS: BP 121/59; PULSE 95; RESP 18; TEMP 37.4; O2SAT 93
[2020-12-28] MEDS: Amoxicillin/Potassium Clav 500 MG TABLET PO ×3 (05:39→20:21)
[2020-12-28] MEDS: Levothyroxine Sodium 75 MCG TABLET PO (05:39)
[2020-12-28] MEDS: Heparin Sodium,Porcine 5,000 UNIT/ML VIAL 5000 UNIT SUBCUT ×2 (05:40→17:53)
[2020-12-28 09:01] VITALS: BP 128/60; PULSE 97
[2020-12-28] MEDS: amLODIPine Besylate 2.5 MG TABLET PO (09:01)
[2020-12-28] MEDS: Folic Acid 1 MG TABLET PO (09:02)
[2020-12-28] MEDS: Carbidopa/Levodopa 25/100 TABLET 1 TAB PO ×3 (09:02→20:19)
[2020-12-28 09:09] VITALS: BP 128/60; PULSE 97; RESP 16; TEMP 36.5; O2SAT 98
[2020-12-28] MEDS: Ibuprofen 600 MG TABLET PO ×2 (09:36→15:23)
[2020-12-28] MEDS: Acetaminophen 325 MG TABLET 650 MG PO ×2 (12:00→20:22)
--- NOTE | 2020-12-28 15:04 | HO.PSYCHPN ---
Subjective Subjective Date of Service: 12/28/20 Reason For Visit: Unspec Bipolar D/O Anxiety D/O Interim History: The patient has been mostly in bed all day long. Nursing staff reported fever but she still treated by UTI. Hospital team already involved in her care. She is tired, with episodes of violent threats against staff, still on delirium Mental Status Exam Mental Status Exam Patient Appearance: Disheveled Level of Consciousness: Sedated and Disoriented Patient Behavior: Suspicious and Asleep Mood Description: Hostile Affect Description: Blunted Patient Cognition Impaired: Yes Ability to Follow Directions: Poor Speech Pattern: Whisper Hallucinations: Auditory Delusions: Paranoid Ideation Thought Process: Evasive and Slowed Thinking Thought Content: positive for Disoriented and positive for Loose Associations Judgement: Poor Diagnostics Vital Signs (24Hr): Vital Signs - 24 hr 12/27/20 18:00 12/27/20 22:00 12/28/20 05:36 Temperature 99.4 F 99.6 F 99.4 F Pulse Rate 127 H 108 H 95 Respiratory Rate 16 18 18 Blood Pressure 122/57 L 114/58 L 121/59 L Pulse Oximetry 95 94 93 12/28/20 09:01 12/28/20 09:09 Temperature 97.7 F Pulse Rate 97 97 Respiratory Rate 16 Blood Pressure 128/60 128/60 Pulse Oximetry 98 Body Mass Index 27.6 Labs Results: 12/24/20 19:51 12/23/20 06:42 Labs: Laboratory Results - last 48 hr 12/26/20 12/27/20 12/27/20 21:46 10:55 20:51 POC Glucose 132 H 171 H 170 H Medications Medications Current Medications Generic Name Dose Route Start Last Admin Trade Name Freq PRN Reason Stop Dose Admin Acetaminophen 650 mg 12/22/20 14:39 12/28/20 12:00 Acetaminophen 325 Mg Tablet PO 650 mg Q6H PRN Administration Headache/Pain Mild Scale (1-3) Al Hydroxide/Mg Hydroxide 30 ml 12/22/20 14:39 Magnesium Hydrox/Alum Hydrox 30 Ml Oral.Susp PO Q6H PRN Heartburn/Nausea Amlodipine Besylate 2.5 mg 12/23/20 09:00 12/28/20 09:01 Amlodipine Besylate 2.5 Mg Tablet PO 2.5 mg DAILY ANSHUL Administration Protocol Amoxicillin/Clavulanate Potassium 500 mg 12/26/20 14:00 12/28/20 05:39 Amoxicillin/Potassium Clav 500 Mg Tablet PO 500 mg Q8H ANSHUL Administration Carbidopa/Levodopa 1 tab 12/22/20 21:00 12/28/20 09:02 Carbidopa/Levodopa 25/100 Tablet PO 1 tab TID ANSHUL Administration Folic Acid 1 mg 12/23/20 09:00 12/28/20 09:02 Folic Acid 1 Mg Tablet PO 1 mg DAILY ANSHUL Administration Heparin Sodium (Porcine) 5,000 unit 12/26/20 06:00 12/28/20 05:40 Heparin Sodium,Porcine 5,000 Unit/Ml Vial SUBCUT 5,000 unit Q12H ANSHUL Administration Hydroxyzine HCl 25 mg 12/22/20 14:39 12/25/20 20:34 Hydroxyzine Hcl 25 Mg Tablet PO 25 mg BEDTIME PRN Administration Anxiety Ibuprofen 600 mg 12/26/20 11:10 12/28/20 09:36 Ibuprofen 600 Mg Tablet PO 600 mg Q6H PRN Administration Pain, Moderate (Pain Scale 4-6 Levothyroxine Sodium 75 mcg 12/23/20 06:00 12/28/20 05:39 Levothyroxine Sodium 75 Mcg Tablet PO 75 mcg DAILY@0600 ANSHUL Administration Magnesium Hydroxide 30 ml 12/22/20 14:39 Milk Of Magnesia 30 Ml Oral.Susp PO DAILY PRN Constipation Medication 1 each 12/26/20 09:00 No Anticoagulant-Heparin Sq Ok MISCELLANE DAILY ANSHUL Olanzapine 7.5 mg 12/23/20 21:00 12/27/20 20:52 Olanzapine 7.5 Mg Tablet PO 7.5 mg BEDTIME ANSHUL Administration Trazodone HCl 50 mg 12/22/20 14:39 12/27/20 20:52 Trazodone Hcl 50 Mg Tablet PO 50 mg BEDTIME PRN Administration Insomnia Valproic Acid 375 mg 12/26/20 15:00 12/28/20 09:02 Valproic Acid (As Sodium Salt) 250 Mg/5 Ml Solution PO 375 mg TID ANSHUL Administration Allergies Allergies Allergy/AdvReac Type Severity Reaction Status Date / Time thioridazine [From Mellaril] Allergy Unknown Unknown Verified 12/22/20 13:25 Assessment & Plan Assessment & Plan (1) Bipolar disorder: Status: Acute Code(s): F31.9 - Bipolar disorder, unspecified (2) Delirium: Status: Acute Code(s): R41.0 - Disorientation, unspecified (3) Parkinson disease: Status: Acute Code(s): G20 - Parkinson's disease Assessment and Plan: Elderly female with good social support with the history of Bipolar disorder, Parkinson's disease and admitted for acute changes on her mental status with psychotic symptoms, unable to take care of her ADL's and agitation. Plan: keep Zyprexa 7.5 mg po qhs Increase Depakene up to 375 mg po tid. Gather collateral information. VALP for AM Add Augmentin for UTI Started on heparin SQ for DVT prophylaxis. Urine culture Greater than 50% of the session was spent on counseling and/or coordination of care Reason for contiued inpatient stay Substantial Risk for: harm to self, harm to others, inability to function, rapid decompensation and med/psych decompensation
[2020-12-28 18:00] VITALS: BP 116/57; PULSE 109; RESP 16; TEMP 36; O2SAT 98
[2020-12-28] MEDS: OLANZapine 7.5 MG TABLET PO (20:18)
[2020-12-29 06:00] VITALS: BP 136/69; PULSE 92; RESP 16; TEMP 36.7; O2SAT 98
[2020-12-29] MEDS: Heparin Sodium,Porcine 5,000 UNIT/ML VIAL 5000 UNIT SUBCUT ×2 (06:17→17:46)
[2020-12-29] MEDS: Amoxicillin/Potassium Clav 500 MG TABLET PO ×3 (06:19→20:08)
[2020-12-29] MEDS: Levothyroxine Sodium 75 MCG TABLET PO (06:19)
[2020-12-29 07:00] VITALS: BMI 27.3
[2020-12-29 08:43] LABS: Valproate 52.4 mcg/mL (50.0-100.0)
[2020-12-29] MEDS: Folic Acid 1 MG TABLET PO (09:10)
[2020-12-29 09:11] VITALS: BP 124/61; PULSE 100
[2020-12-29] MEDS: amLODIPine Besylate 2.5 MG TABLET PO (09:11)
[2020-12-29] MEDS: Carbidopa/Levodopa 25/100 TABLET 1 TAB PO ×3 (09:11→20:08)
[2020-12-29 09:44] LABS: Appearance Urine HAZY; Color Urine YELLOW; Glucose Urine UA NEG (NEG); Leukocyte Esterase Urine NEG (NEG); Nitrite Urine NEG (NEG); Urine Blood NEG (NEG); Urine Ketones NEG (NEG); Urine Protein NEG (NEG-TRACE)
--- NOTE | 2020-12-29 14:22 | P.PNPSI_ITS ---
Subjective Subjective Date of Service: 12/29/20 Reason For Visit: Unspec Bipolar D/O Anxiety D/O Interim History: The patient was able to walk and eat her meals in the common room. She has used her wheelchair. Apparently, she was a candidate for knee replacement but since she was not going to do the rehab, the surgery was most likely cancelled. New U/A came back negative. Review of Systems Acute medical concerns: No Medical Review of Systems: unchanged Mental Status Exam Mental Status Exam Patient Appearance: Disheveled (on hospital gowns) Patient Orientation: Person Level of Consciousness: Awake and Disoriented Patient Behavior: Guarded and Passive Mood Description: Withdrawn Affect Description: Constricted Patient Cognition Impaired: Yes Ability to Follow Directions: Fair Speech Pattern: Clear Hallucinations: None Delusions: Paranoid Ideation Thought Process: Distracted Thought Content: positive for Poverty of Content Judgement: Poor Diagnostics Vital Signs (24Hr): Vital Signs - 24 hr 12/28/20 18:00 12/29/20 06:00 12/29/20 09:11 Temperature 96.8 F 98.1 F Pulse Rate 109 H 92 100 Respiratory Rate 16 16 Blood Pressure 116/57 L 136/69 124/61 Pulse Oximetry 98 98 Body Mass Index 27.6 Labs Results: 12/24/20 19:51 12/23/20 06:42 Labs: Laboratory Results - last 48 hr 12/27/20 12/29/20 12/29/20 20:51 06:29 Unknown POC Glucose 170 H Urine Color YELLOW Urine Appearance HAZY Urine pH 6.0 Ur Specific [place] 1.010 Urine Protein NEG Urine Glucose (UA) NEG Urine Ketones NEG Urine Blood NEG Urine Nitrite NEG Ur Leukocyte Esterase NEG Valproic Acid 52.4 Medications Medications Current Medications Generic Name Dose Route Start Last Admin Trade Name Freq PRN Reason Stop Dose Admin Acetaminophen 650 mg 12/22/20 14:39 12/28/20 20:22 Acetaminophen 325 Mg Tablet PO 650 mg Q6H PRN Administration Headache/Pain Mild Scale (1-3) Al Hydroxide/Mg Hydroxide 30 ml 12/22/20 14:39 Magnesium Hydrox/Alum Hydrox 30 Ml Oral.Susp PO Q6H PRN Heartburn/Nausea Amlodipine Besylate 2.5 mg 12/23/20 09:00 12/29/20 09:11 Amlodipine Besylate 2.5 Mg Tablet PO 2.5 mg DAILY ANSHUL Administration Protocol Amoxicillin/Clavulanate Potassium 500 mg 12/26/20 14:00 12/29/20 06:19 Amoxicillin/Potassium Clav 500 Mg Tablet PO 500 mg Q8H ANSHUL Administration Carbidopa/Levodopa 1 tab 12/22/20 21:00 12/29/20 09:11 Carbidopa/Levodopa 25/100 Tablet PO 1 tab TID ANSHUL Administration Folic Acid 1 mg 12/23/20 09:00 12/29/20 09:10 Folic Acid 1 Mg Tablet PO 1 mg DAILY ANSHUL Administration Heparin Sodium (Porcine) 5,000 unit 12/26/20 06:00 12/29/20 06:17 Heparin Sodium,Porcine 5,000 Unit/Ml Vial SUBCUT 5,000 unit Q12H ANSHUL Administration Hydroxyzine HCl 25 mg 12/22/20 14:39 12/25/20 20:34 Hydroxyzine Hcl 25 Mg Tablet PO 25 mg BEDTIME PRN Administration Anxiety Ibuprofen 600 mg 12/26/20 11:10 12/28/20 15:23 Ibuprofen 600 Mg Tablet PO 600 mg Q6H PRN Administration Pain, Moderate (Pain Scale 4-6 Levothyroxine Sodium 75 mcg 12/23/20 06:00 12/29/20 06:19 Levothyroxine Sodium 75 Mcg Tablet PO 75 mcg DAILY@0600 ANSHUL Administration Magnesium Hydroxide 30 ml 12/22/20 14:39 Milk Of Magnesia 30 Ml Oral.Susp PO DAILY PRN Constipation Medication 1 each 12/26/20 09:00 No Anticoagulant-Heparin Sq Ok MISCELLANE DAILY ANSHUL Olanzapine 7.5 mg 12/23/20 21:00 12/28/20 20:18 Olanzapine 7.5 Mg Tablet PO 7.5 mg BEDTIME ANSHUL Administration Trazodone HCl 50 mg 12/22/20 14:39 12/27/20 20:52 Trazodone Hcl 50 Mg Tablet PO 50 mg BEDTIME PRN Administration Insomnia Valproic Acid 375 mg 12/26/20 15:00 12/29/20 09:12 Valproic Acid (As Sodium Salt) 250 Mg/5 Ml Solution PO 375 mg TID ANSHUL Administration Allergies Allergies Allergy/AdvReac Type Severity Reaction Status Date / Time thioridazine [From Mellaril] Allergy Unknown Unknown Verified 12/22/20 13:25 Assessment & Plan Assessment & Plan (1) Bipolar disorder: Status: Acute Code(s): F31.9 - Bipolar disorder, unspecified (2) Delirium: Status: Acute Code(s): R41.0 - Disorientation, unspecified (3) Parkinson disease: Status: Acute Code(s): G20 - Parkinson's disease Assessment and Plan: Elderly female with good social support with the history of Bipolar disorder, Parkinson's disease and admitted for acute changes on her mental status with psychotic symptoms, unable to take care of her ADL's and agitation. Plan: keep Zyprexa 7.5 mg po qhs Increase Depakene up to 375 mg po tid. Level now therapeutic Gather collateral information. Add Augmentin for UTI Started on heparin SQ for DVT prophylaxis. Urine culture Greater than 50% of the session was spent on counseling and/or coordination of care Reason for contiued inpatient stay Substantial Risk for: harm to self, harm to others, inability to function, rapid decompensation and med/psych decompensation
[2020-12-29 18:56] VITALS: BP 140/63; PULSE 119; RESP 16; TEMP 36.6; O2SAT 98
[2020-12-29] MEDS: OLANZapine 7.5 MG TABLET PO (20:08)
[2020-12-30] MEDS: Heparin Sodium,Porcine 5,000 UNIT/ML VIAL 5000 UNIT SUBCUT (06:56)
[2020-12-30] MEDS: Amoxicillin/Potassium Clav 500 MG TABLET PO ×3 (06:57→20:23)
[2020-12-30] MEDS: Levothyroxine Sodium 75 MCG TABLET PO (06:57)
[2020-12-30] MEDS: amLODIPine Besylate 2.5 MG TABLET PO (08:28)
[2020-12-30] MEDS: Folic Acid 1 MG TABLET PO (08:28)
[2020-12-30] MEDS: Carbidopa/Levodopa 25/100 TABLET 1 TAB PO ×3 (08:29→20:23)
--- NOTE | 2020-12-30 12:07 | P.PNPSI_ITS ---
Subjective Subjective Date of Service: 12/30/20 Reason For Visit: Unspec Bipolar D/O Anxiety D/O Interim History: The patient was on the open area at AM but later, she was in her room. Her visited her and she was laughing and feeling better. NO fever Review of Systems Acute medical concerns: No Medical Review of Systems: unchanged Mental Status Exam Mental Status Exam Patient Appearance: Disheveled Patient Orientation: Person Level of Consciousness: Awake and Appropriate Patient Behavior: Passive Mood Description: Suspicious and Withdrawn Affect Description: Constricted Patient Cognition Impaired: Yes Ability to Follow Directions: Good Speech Pattern: Clear Hallucinations: None Delusions: Paranoid Ideation Thought Process: Distracted and Evasive Thought Content: positive for [place], positive for Circumstantial and positive for Poverty of Content Judgement: Poor Diagnostics Vital Signs (24Hr): Vital Signs - 24 hr 12/29/20 18:56 Temperature 97.9 F Pulse Rate 119 H Respiratory Rate 16 Blood Pressure 140/63 H Pulse Oximetry 98 Body Mass Index 27.6 Labs Results: 12/24/20 19:51 12/23/20 06:42 Labs: Laboratory Results - last 48 hr 12/29/20 12/29/20 06:29 Unknown Urine Color YELLOW Urine Appearance HAZY Urine pH 6.0 Ur Specific [place] 1.010 Urine Protein NEG Urine Glucose (UA) NEG Urine Ketones NEG Urine Blood NEG Urine Nitrite NEG Ur Leukocyte Esterase NEG Valproic Acid 52.4 Medications Medications Current Medications Generic Name Dose Route Start Last Admin Trade Name Freq PRN Reason Stop Dose Admin Acetaminophen 650 mg 12/22/20 14:39 12/28/20 20:22 Acetaminophen 325 Mg Tablet PO 650 mg Q6H PRN Administration Headache/Pain Mild Scale (1-3) Al Hydroxide/Mg Hydroxide 30 ml 12/22/20 14:39 Magnesium Hydrox/Alum Hydrox 30 Ml Oral.Susp PO Q6H PRN Heartburn/Nausea Amlodipine Besylate 2.5 mg 12/23/20 09:00 12/30/20 08:28 Amlodipine Besylate 2.5 Mg Tablet PO 2.5 mg DAILY ANSHUL Administration Protocol Amoxicillin/Clavulanate Potassium 500 mg 12/26/20 14:00 12/30/20 06:57 Amoxicillin/Potassium Clav 500 Mg Tablet PO 500 mg Q8H ANSHUL Administration Carbidopa/Levodopa 1 tab 12/22/20 21:00 12/30/20 08:29 Carbidopa/Levodopa 25/100 Tablet PO 1 tab TID ANSHUL Administration Folic Acid 1 mg 12/23/20 09:00 12/30/20 08:28 Folic Acid 1 Mg Tablet PO 1 mg DAILY ANSHUL Administration Heparin Sodium (Porcine) 5,000 unit 12/26/20 06:00 12/30/20 06:56 Heparin Sodium,Porcine 5,000 Unit/Ml Vial SUBCUT 5,000 unit Q12H ANSHUL Administration Hydroxyzine HCl 25 mg 12/22/20 14:39 12/25/20 20:34 Hydroxyzine Hcl 25 Mg Tablet PO 25 mg BEDTIME PRN Administration Anxiety Ibuprofen 600 mg 12/26/20 11:10 12/28/20 15:23 Ibuprofen 600 Mg Tablet PO 600 mg Q6H PRN Administration Pain, Moderate (Pain Scale 4-6 Levothyroxine Sodium 75 mcg 12/23/20 06:00 12/30/20 06:57 Levothyroxine Sodium 75 Mcg Tablet PO 75 mcg DAILY@0600 ANSHUL Administration Magnesium Hydroxide 30 ml 12/22/20 14:39 Milk Of Magnesia 30 Ml Oral.Susp PO DAILY PRN Constipation Medication 1 each 12/26/20 09:00 No Anticoagulant-Heparin Sq Ok MISCELLANE DAILY ANSHUL Olanzapine 7.5 mg 12/23/20 21:00 12/29/20 20:08 Olanzapine 7.5 Mg Tablet PO 7.5 mg BEDTIME ANSHUL Administration Trazodone HCl 50 mg 12/22/20 14:39 12/27/20 20:52 Trazodone Hcl 50 Mg Tablet PO 50 mg BEDTIME PRN Administration Insomnia Valproic Acid 375 mg 12/26/20 15:00 12/30/20 08:29 Valproic Acid (As Sodium Salt) 250 Mg/5 Ml Solution PO 375 mg TID ANSHUL Administration Allergies Allergies Allergy/AdvReac Type Severity Reaction Status Date / Time thioridazine [From Mellaril] Allergy Unknown Unknown Verified 12/22/20 13:25 Assessment & Plan Assessment & Plan (1) Bipolar disorder: Status: Acute Code(s): F31.9 - Bipolar disorder, unspecified (2) Delirium: Status: Acute Code(s): R41.0 - Disorientation, unspecified (3) Parkinson disease: Status: Acute Code(s): G20 - Parkinson's disease Assessment and Plan: Elderly female with good social support with the history of Bipolar disorder, Parkinson's disease and admitted for acute changes on her mental status with psychotic symptoms, unable to take care of her ADL's and agitation. Plan: keep Zyprexa 7.5 mg po qhs Increase Depakene up to 375 mg po tid. Level now therapeutic Gather collateral information. Add Augmentin for UTI Started on heparin SQ for DVT prophylaxis. Urine culture Greater than 50% of the session was spent on counseling and/or coordination of care Reason for contiued inpatient stay Substantial Risk for: harm to self, harm to others, inability to function, rapid decompensation and med/psych decompensation
[2020-12-30 17:55] VITALS: BP 137/62; PULSE 96; TEMP 36.8; O2SAT 98
[2020-12-30] MEDS: OLANZapine 7.5 MG TABLET PO (20:23)
[2020-12-31 06:00] VITALS: BP 125/60; PULSE 75; RESP 18; TEMP 36.6; O2SAT 97
[2020-12-31] MEDS: Levothyroxine Sodium 75 MCG TABLET PO (06:04)
[2020-12-31] MEDS: Amoxicillin/Potassium Clav 500 MG TABLET PO ×3 (06:04→21:28)
[2020-12-31 08:47] VITALS: BP 124/68; PULSE 92
[2020-12-31] MEDS: Folic Acid 1 MG TABLET PO (08:47)
[2020-12-31] MEDS: Carbidopa/Levodopa 25/100 TABLET 1 TAB PO ×3 (08:47→21:28)
[2020-12-31] MEDS: amLODIPine Besylate 2.5 MG TABLET PO (08:47)
--- NOTE | 2020-12-31 10:08 | HO.PSYCHPN ---
Subjective Subjective Date of Service: 12/31/20 Reason For Visit: Unspec Bipolar D/O Anxiety D/O Interim History: pt is terse and without eye contact. she has no requests of MD other than to recline her bed. per staff, pt has been quite irritable with staff and c/o chronic knee pain. has UTI, which is being treated. no other notable events or behaviors. Mental Status Exam Mental Status Exam Narrative: disheveled. PMR. minimally cooperative. speech terse, paucity of speech. thoughts linear and logical. affect blunted. no SI/HI/AVH expressed. Diagnostics Vital Signs (24Hr): Vital Signs - 24 hr 12/30/20 17:55 12/31/20 06:00 12/31/20 08:47 Temperature 98.2 F 98 F Pulse Rate 96 75 92 Respiratory Rate 18 Blood Pressure 137/62 125/60 124/68 Pulse Oximetry 98 97 Body Mass Index 27.3 Labs Results: 12/24/20 19:51 12/23/20 06:42 Medications Medications Current Medications Generic Name Dose Route Start Last Admin Trade Name Freq PRN Reason Stop Dose Admin Acetaminophen 650 mg 12/22/20 14:39 12/28/20 20:22 Acetaminophen 325 Mg Tablet PO 650 mg Q6H PRN Administration Headache/Pain Mild Scale (1-3) Al Hydroxide/Mg Hydroxide 30 ml 12/22/20 14:39 Magnesium Hydrox/Alum Hydrox 30 Ml Oral.Susp PO Q6H PRN Heartburn/Nausea Amlodipine Besylate 2.5 mg 12/23/20 09:00 12/31/20 08:47 Amlodipine Besylate 2.5 Mg Tablet PO 2.5 mg DAILY ANSHUL Administration Protocol Amoxicillin/Clavulanate Potassium 500 mg 12/26/20 14:00 12/31/20 06:04 Amoxicillin/Potassium Clav 500 Mg Tablet PO 500 mg Q8H ANSHUL Administration Carbidopa/Levodopa 1 tab 12/22/20 21:00 12/31/20 08:47 Carbidopa/Levodopa 25/100 Tablet PO 1 tab TID ANSHUL Administration Folic Acid 1 mg 12/23/20 09:00 12/31/20 08:47 Folic Acid 1 Mg Tablet PO 1 mg DAILY ANSHUL Administration Heparin Sodium (Porcine) 5,000 unit 12/26/20 06:00 12/31/20 06:30 Heparin Sodium,Porcine 5,000 Unit/Ml Vial SUBCUT Not Given Q12H ANSHUL Hydroxyzine HCl 25 mg 12/22/20 14:39 12/25/20 20:34 Hydroxyzine Hcl 25 Mg Tablet PO 25 mg BEDTIME PRN Administration Anxiety Ibuprofen 600 mg 12/26/20 11:10 12/28/20 15:23 Ibuprofen 600 Mg Tablet PO 600 mg Q6H PRN Administration Pain, Moderate (Pain Scale 4-6 Levothyroxine Sodium 75 mcg 12/23/20 06:00 12/31/20 06:04 Levothyroxine Sodium 75 Mcg Tablet PO 75 mcg DAILY@0600 ANSHUL Administration Magnesium Hydroxide 30 ml 12/22/20 14:39 Milk Of Magnesia 30 Ml Oral.Susp PO DAILY PRN Constipation Medication 1 each 12/26/20 09:00 No Anticoagulant-Heparin Sq Ok MISCELLANE DAILY ANSHUL Olanzapine 7.5 mg 12/23/20 21:00 12/30/20 20:23 Olanzapine 7.5 Mg Tablet PO 7.5 mg BEDTIME ANSHUL Administration Trazodone HCl 50 mg 12/22/20 14:39 12/27/20 20:52 Trazodone Hcl 50 Mg Tablet PO 50 mg BEDTIME PRN Administration Insomnia Valproic Acid 375 mg 12/26/20 15:00 12/31/20 08:47 Valproic Acid (As Sodium Salt) 250 Mg/5 Ml Solution PO 375 mg TID ANSHUL Administration Allergies Allergies Allergy/AdvReac Type Severity Reaction Status Date / Time thioridazine [From Mellaril] Allergy Unknown Unknown Verified 12/22/20 13:25 Assessment & Plan Assessment & Plan (1) Bipolar disorder: Status: Acute Code(s): F31.9 - Bipolar disorder, unspecified (2) Delirium: Status: Acute Code(s): R41.0 - Disorientation, unspecified (3) Parkinson disease: Status: Acute Code(s): G20 - Parkinson's disease Assessment and Plan: Elderly female with good social support with the history of Bipolar disorder, Parkinson's disease and admitted for acute changes on her mental status with psychotic symptoms, unable to take care of her ADL's and agitation. Plan: keep Zyprexa 7.5 mg po qhs Increase Depakene up to 375 mg po tid. Level now therapeutic Gather collateral information. Add Augmentin for UTI Started on heparin SQ for DVT prophylaxis. Urine culture Greater than 50% of the session was spent on counseling and/or coordination of care Reason for contiued inpatient stay Substantial Risk for: inability to function
[2020-12-31 18:00] VITALS: BP 129/70; PULSE 91; RESP 16; TEMP 36.6; O2SAT 95
[2020-12-31] MEDS: OLANZapine 7.5 MG TABLET PO (21:28)
[2021-01-01] MEDS: Levothyroxine Sodium 75 MCG TABLET PO (05:49)
[2021-01-01] MEDS: Amoxicillin/Potassium Clav 500 MG TABLET PO ×3 (05:49→22:45)
[2021-01-01 05:53] VITALS: RESP 18
[2021-01-01] MEDS: Carbidopa/Levodopa 25/100 TABLET 1 TAB PO ×3 (08:32→20:15)
[2021-01-01] MEDS: Folic Acid 1 MG TABLET PO (08:32)
[2021-01-01] MEDS: amLODIPine Besylate 2.5 MG TABLET PO (08:32)
--- NOTE | 2021-01-01 11:32 | P.PNPSI_ITS ---
Subjective Subjective Date of Service: 01/01/21 Reason For Visit: Unspec Bipolar D/O Anxiety D/O Interim History: pt sleeping at the time of interview. it was felt to be more therapeutic to allow her to sleep than to wake her up. per staff, pt was reported to have been hearing AH on restaurant shift leader and RIS. this has not been observed by nursing staff today. hostile, incontinent. Mental Status Exam Mental Status Exam Narrative: asleep in her bed. Diagnostics Vital Signs (24Hr): Vital Signs - 24 hr 12/31/20 18:00 01/01/21 05:53 Temperature 97.9 F Pulse Rate 91 Respiratory Rate 16 18 Blood Pressure 129/70 Pulse Oximetry 95 Body Mass Index 27.3 Labs Results: 12/24/20 19:51 12/23/20 06:42 Medications Medications Current Medications Generic Name Dose Route Start Last Admin Trade Name Freq PRN Reason Stop Dose Admin Acetaminophen 650 mg 12/22/20 14:39 12/28/20 20:22 Acetaminophen 325 Mg Tablet PO 650 mg Q6H PRN Administration Headache/Pain Mild Scale (1-3) Al Hydroxide/Mg Hydroxide 30 ml 12/22/20 14:39 Magnesium Hydrox/Alum Hydrox 30 Ml Oral.Susp PO Q6H PRN Heartburn/Nausea Amlodipine Besylate 2.5 mg 12/23/20 09:00 01/01/21 08:32 Amlodipine Besylate 2.5 Mg Tablet PO 2.5 mg DAILY ANSHUL Administration Protocol Amoxicillin/Clavulanate Potassium 500 mg 12/26/20 14:00 01/01/21 05:49 Amoxicillin/Potassium Clav 500 Mg Tablet PO 500 mg Q8H ANSHUL Administration Carbidopa/Levodopa 1 tab 12/22/20 21:00 01/01/21 08:32 Carbidopa/Levodopa 25/100 Tablet PO 1 tab TID ANSHUL Administration Folic Acid 1 mg 12/23/20 09:00 01/01/21 08:32 Folic Acid 1 Mg Tablet PO 1 mg DAILY ANSHUL Administration Heparin Sodium (Porcine) 5,000 unit 12/26/20 06:00 01/01/21 05:53 Heparin Sodium,Porcine 5,000 Unit/Ml Vial SUBCUT Not Given Q12H ANSHUL Hydroxyzine HCl 25 mg 12/22/20 14:39 12/25/20 20:34 Hydroxyzine Hcl 25 Mg Tablet PO 25 mg BEDTIME PRN Administration Anxiety Ibuprofen 600 mg 12/26/20 11:10 12/28/20 15:23 Ibuprofen 600 Mg Tablet PO 600 mg Q6H PRN Administration Pain, Moderate (Pain Scale 4-6 Levothyroxine Sodium 75 mcg 12/23/20 06:00 01/01/21 05:49 Levothyroxine Sodium 75 Mcg Tablet PO 75 mcg DAILY@0600 ANSHUL Administration Magnesium Hydroxide 30 ml 12/22/20 14:39 Milk Of Magnesia 30 Ml Oral.Susp PO DAILY PRN Constipation Medication 1 each 12/26/20 09:00 No Anticoagulant-Heparin Sq Ok MISCELLANE DAILY ANSHUL Olanzapine 7.5 mg 12/23/20 21:00 12/31/20 21:28 Olanzapine 7.5 Mg Tablet PO 7.5 mg BEDTIME ANSHUL Administration Trazodone HCl 50 mg 12/22/20 14:39 12/27/20 20:52 Trazodone Hcl 50 Mg Tablet PO 50 mg BEDTIME PRN Administration Insomnia Valproic Acid 375 mg 12/26/20 15:00 01/01/21 08:31 Valproic Acid (As Sodium Salt) 250 Mg/5 Ml Solution PO 375 mg TID ANSHUL Administration Allergies Allergies Allergy/AdvReac Type Severity Reaction Status Date / Time thioridazine [From Mellaril] Allergy Unknown Unknown Verified 12/22/20 13:25 Assessment & Plan Assessment & Plan (1) Bipolar disorder: Status: Acute Code(s): F31.9 - Bipolar disorder, unspecified (2) Delirium: Status: Acute Code(s): R41.0 - Disorientation, unspecified (3) Parkinson disease: Status: Acute Code(s): G20 - Parkinson's disease Assessment and Plan: Elderly female with good social support with the history of Bipolar disorder, Parkinson's disease and admitted for acute changes on her mental status with psychotic symptoms, unable to take care of her ADL's and agitation. Plan: keep Zyprexa 7.5 mg po qhs Increase Depakene up to 375 mg po tid. Level now therapeutic Gather collateral information. Add Augmentin for UTI Started on heparin SQ for DVT prophylaxis. Urine culture Greater than 50% of the session was spent on counseling and/or coordination of care Reason for contiued inpatient stay Substantial Risk for: inability to function and rapid decompensation
[2021-01-01 18:00] VITALS: BP 118/64; PULSE 94; TEMP 36.6; O2SAT 98
[2021-01-01] MEDS: Heparin Sodium,Porcine 5,000 UNIT/ML VIAL 5000 UNIT SUBCUT (20:14)
[2021-01-01] MEDS: OLANZapine 7.5 MG TABLET PO (20:15)
[2021-01-01] MEDS: traZODone HCL 50 MG TABLET PO (22:45)
[2021-01-02] MEDS: Heparin Sodium,Porcine 5,000 UNIT/ML VIAL 5000 UNIT SUBCUT ×2 (05:10→16:59)
[2021-01-02] MEDS: Levothyroxine Sodium 75 MCG TABLET PO (05:11)
[2021-01-02] MEDS: Acetaminophen 325 MG TABLET 650 MG PO (05:11)
[2021-01-02] MEDS: Amoxicillin/Potassium Clav 500 MG TABLET PO ×2 (05:11→13:32)
[2021-01-02 05:21] VITALS: BP 121/64; PULSE 76; RESP 16; TEMP 36.6; O2SAT 96
[2021-01-02 08:43] VITALS: BP 120/55; PULSE 82
[2021-01-02] MEDS: Folic Acid 1 MG TABLET PO (08:43)
[2021-01-02] MEDS: amLODIPine Besylate 2.5 MG TABLET PO (08:43)
[2021-01-02] MEDS: Carbidopa/Levodopa 25/100 TABLET 1 TAB PO ×3 (08:44→20:00)
--- NOTE | 2021-01-02 13:30 | HO.PSYCHPN ---
Subjective Subjective Date of Service: 01/02/21 Reason For Visit: Unspec Bipolar D/O Anxiety D/O Interim History: The patient was seen early in the morning and she was seen in the common area having her breakfast. Still internally preoccupied, unable to answer questions and with need of help for ADL's. The staff has reported that sometimes she is aggressive verbally. Side effects from medications: No Attending Groups: No Review of Systems Acute medical concerns: No Medical Review of Systems: unchanged Mental Status Exam Mental Status Exam Patient Appearance: Disheveled (on hospital gowns) Patient Orientation: Person, Place and Time Level of Consciousness: Awake Patient Behavior: Guarded, Suspicious and Asleep Mood Description: Suspicious and Constricted Affect Description: Constricted Patient Cognition Impaired: Yes Ability to Follow Directions: Fair Speech Pattern: Clear Hallucinations: None Delusions: Paranoid Ideation Thought Process: Illogical and Distracted Thought Content: positive for [place] Judgement: Fair Diagnostics Vital Signs (24Hr): Vital Signs - 24 hr 01/01/21 18:00 01/02/21 05:21 01/02/21 08:43 Temperature 97.8 F 97.9 F Pulse Rate 94 76 82 Respiratory Rate 16 Blood Pressure 118/64 121/64 120/55 L Pulse Oximetry 98 96 Body Mass Index 27.3 Labs Results: 12/24/20 19:51 12/23/20 06:42 Medications Medications Current Medications Generic Name Dose Route Start Last Admin Trade Name Freq PRN Reason Stop Dose Admin Acetaminophen 650 mg 12/22/20 14:39 01/02/21 05:11 Acetaminophen 325 Mg Tablet PO 650 mg Q6H PRN Administration Headache/Pain Mild Scale (1-3) Al Hydroxide/Mg Hydroxide 30 ml 12/22/20 14:39 Magnesium Hydrox/Alum Hydrox 30 Ml Oral.Susp PO Q6H PRN Heartburn/Nausea Amlodipine Besylate 2.5 mg 12/23/20 09:00 01/02/21 08:43 Amlodipine Besylate 2.5 Mg Tablet PO 2.5 mg DAILY ANSHUL Administration Protocol Amoxicillin/Clavulanate Potassium 500 mg 12/26/20 14:00 01/02/21 05:11 Amoxicillin/Potassium Clav 500 Mg Tablet PO 500 mg Q8H ANSHUL Administration Carbidopa/Levodopa 1 tab 12/22/20 21:00 01/02/21 08:44 Carbidopa/Levodopa 25/100 Tablet PO 1 tab TID ANSHUL Administration Folic Acid 1 mg 12/23/20 09:00 01/02/21 08:43 Folic Acid 1 Mg Tablet PO 1 mg DAILY ANSHUL Administration Heparin Sodium (Porcine) 5,000 unit 12/26/20 06:00 01/02/21 05:10 Heparin Sodium,Porcine 5,000 Unit/Ml Vial SUBCUT 5,000 unit Q12H ANSHUL Administration Hydroxyzine HCl 25 mg 12/22/20 14:39 12/25/20 20:34 Hydroxyzine Hcl 25 Mg Tablet PO 25 mg BEDTIME PRN Administration Anxiety Ibuprofen 600 mg 12/26/20 11:10 12/28/20 15:23 Ibuprofen 600 Mg Tablet PO 600 mg Q6H PRN Administration Pain, Moderate (Pain Scale 4-6 Levothyroxine Sodium 75 mcg 12/23/20 06:00 01/02/21 05:11 Levothyroxine Sodium 75 Mcg Tablet PO 75 mcg DAILY@0600 ANSHUL Administration Magnesium Hydroxide 30 ml 12/22/20 14:39 Milk Of Magnesia 30 Ml Oral.Susp PO DAILY PRN Constipation Medication 1 each 12/26/20 09:00 No Anticoagulant-Heparin Sq Ok MISCELLANE DAILY ANSHUL Olanzapine 7.5 mg 12/23/20 21:00 01/01/21 20:15 Olanzapine 7.5 Mg Tablet PO 7.5 mg BEDTIME ANSHUL Administration Trazodone HCl 50 mg 12/22/20 14:39 01/01/21 22:45 Trazodone Hcl 50 Mg Tablet PO 50 mg BEDTIME PRN Administration Insomnia Valproic Acid 375 mg 12/26/20 15:00 01/02/21 08:43 Valproic Acid (As Sodium Salt) 250 Mg/5 Ml Solution PO 375 mg TID ANSHUL Administration Allergies Allergies Allergy/AdvReac Type Severity Reaction Status Date / Time thioridazine [From Mellaril] Allergy Unknown Unknown Verified 12/22/20 13:25 Assessment & Plan Assessment & Plan (1) Bipolar disorder: Status: Acute Code(s): F31.9 - Bipolar disorder, unspecified (2) Delirium: Status: Acute Code(s): R41.0 - Disorientation, unspecified (3) Parkinson disease: Status: Acute Code(s): G20 - Parkinson's disease Assessment and Plan: Elderly female with good social support with the history of Bipolar disorder, Parkinson's disease and admitted for acute changes on her mental status with psychotic symptoms, unable to take care of her ADL's and agitation. Plan: keep Zyprexa 7.5 mg po qhs Increase Depakene up to 375 mg po tid. Level now therapeutic Gather collateral information. Add Augmentin for UTI, today last day of ATB Started on heparin SQ for DVT prophylaxis. Urine culture New BMP, [id number], Lipid panel, VALP tomorrow AM. Greater than 50% of the session was spent on counseling and/or coordination of care Reason for contiued inpatient stay Substantial Risk for: harm to self, harm to others, inability to function, rapid decompensation and med/psych decompensation
[2021-01-02 17:34] VITALS: BP 122/59; PULSE 79; RESP 16; TEMP 36.6; O2SAT 98
[2021-01-02] MEDS: OLANZapine 7.5 MG TABLET PO (20:00)
[2021-01-03 06:00] VITALS: BP 135/62; PULSE 84; RESP 16; TEMP 36.7; O2SAT 95
[2021-01-03] MEDS: Heparin Sodium,Porcine 5,000 UNIT/ML VIAL 5000 UNIT SUBCUT ×2 (06:20→18:00)
[2021-01-03] MEDS: Levothyroxine Sodium 75 MCG TABLET PO (06:21)
[2021-01-03] MEDS: Acetaminophen 325 MG TABLET 650 MG PO ×2 (06:23→16:43)
[2021-01-03 07:43] LABS: Estimated Average Glucose 120 mg/dL; Hemoglobin A1c % 5.8 %
[2021-01-03 07:49] LABS: Anion Gap 11 (12-20); Blood Urea Nitrogen 36 mg/dL (9-16); Calcium 9.9 mg/dL (8.4-10.2); Carbon Dioxide 26 mmol/L (22-29); Chloride 111 mmol/L (96-108); Cholesterol 144 mg/dL; Creatinine Clr Calc Pharmacy 18.2; Estimated Glomerular Filt Rate 19; Glucose Random 95 mg/dL (60-115); HDL Cholesterol 30 mg/dL; LDL Cholesterol Calculated 84 mg/dl; Potassium 4.3 mmol/L (3.3-5.1); Sodium 144 mmol/L (135-145); Triglycerides 153 mg/dL
[2021-01-03 08:39] LABS: Valproate 48.4 mcg/mL (50.0-100.0)
[2021-01-03 09:29] VITALS: BP 136/66; PULSE 92
[2021-01-03] MEDS: Folic Acid 1 MG TABLET PO (09:29)
[2021-01-03] MEDS: amLODIPine Besylate 2.5 MG TABLET PO (09:29)
[2021-01-03] MEDS: Carbidopa/Levodopa 25/100 TABLET 1 TAB PO ×3 (09:29→20:05)
--- NOTE | 2021-01-03 15:57 | HO.PSYCHPN ---
Subjective Subjective Date of Service: 01/04/21 Reason For Visit: Unspec Bipolar D/O Anxiety D/O Interim History: The staff has noticed that the patient is more pleasant in the morning and in the evening she becomes more angry. Overall, she has being more visible in the unit when she is going out for meals in the common area. During the assessment, the patient looked slightly confused. Review of Systems Acute medical concerns: No Medical Review of Systems: unchanged Mental Status Exam Mental Status Exam Patient Appearance: Well Grooomed Patient Orientation: Person Level of Consciousness: Awake Patient Behavior: Suspicious Mood Description: Withdrawn Affect Description: Constricted Patient Cognition Impaired: Yes Ability to Follow Directions: Good Speech Pattern: Poor Articulation Memory Description: Remote Impaired and Immediate Impaired Hallucinations: None Delusions: Paranoid Ideation Thought Process: Distracted Thought Content: positive for Poverty of Content Judgement: Poor Diagnostics Vital Signs (24Hr): Vital Signs - 24 hr 01/02/21 17:34 01/03/21 06:00 01/03/21 09:29 Temperature 97.8 F 98.1 F Pulse Rate 79 84 92 Respiratory Rate 16 16 Blood Pressure 122/59 L 135/62 136/66 Pulse Oximetry 98 95 Body Mass Index 27.3 Labs Results: 12/24/20 19:51 01/03/21 06:56 Labs: Laboratory Results - last 48 hr 01/03/21 01/03/21 06:56 06:56 Sodium 144 Potassium 4.3 Chloride 111 H Carbon Dioxide 26 Anion Gap 11 L BUN 36 H Creatinine 2.45 H Estim Creat Clear Calc 18.2 Estimated GFR 19 Random Glucose 95 Estimat Average Glucose 120 Hemoglobin A1c % 5.8 Calcium 9.9 Triglycerides 153 Cholesterol 144 LDL Cholesterol, Calc 84 HDL Cholesterol 30 D Valproic Acid 48.4 L Medications Medications Current Medications Generic Name Dose Route Start Last Admin Trade Name Freq PRN Reason Stop Dose Admin Acetaminophen 650 mg 12/22/20 14:39 01/03/21 06:23 Acetaminophen 325 Mg Tablet PO 650 mg Q6H PRN Administration Headache/Pain Mild Scale (1-3) Al Hydroxide/Mg Hydroxide 30 ml 12/22/20 14:39 Magnesium Hydrox/Alum Hydrox 30 Ml Oral.Susp PO Q6H PRN Heartburn/Nausea Amlodipine Besylate 2.5 mg 12/23/20 09:00 01/03/21 09:29 Amlodipine Besylate 2.5 Mg Tablet PO 2.5 mg DAILY ANSHUL Administration Protocol Carbidopa/Levodopa 1 tab 12/22/20 21:00 01/03/21 15:23 Carbidopa/Levodopa 25/100 Tablet PO 1 tab TID ANSHUL Administration Folic Acid 1 mg 12/23/20 09:00 01/03/21 09:29 Folic Acid 1 Mg Tablet PO 1 mg DAILY ANSHUL Administration Heparin Sodium (Porcine) 5,000 unit 12/26/20 06:00 01/03/21 06:20 Heparin Sodium,Porcine 5,000 Unit/Ml Vial SUBCUT 5,000 unit Q12H ANSHUL Administration Hydroxyzine HCl 25 mg 12/22/20 14:39 12/25/20 20:34 Hydroxyzine Hcl 25 Mg Tablet PO 25 mg BEDTIME PRN Administration Anxiety Ibuprofen 600 mg 12/26/20 11:10 12/28/20 15:23 Ibuprofen 600 Mg Tablet PO 600 mg Q6H PRN Administration Pain, Moderate (Pain Scale 4-6 Levothyroxine Sodium 75 mcg 12/23/20 06:00 01/03/21 06:21 Levothyroxine Sodium 75 Mcg Tablet PO 75 mcg DAILY@0600 ANSHUL Administration Magnesium Hydroxide 30 ml 12/22/20 14:39 Milk Of Magnesia 30 Ml Oral.Susp PO DAILY PRN Constipation Medication 1 each 12/26/20 09:00 No Anticoagulant-Heparin Sq Ok MISCELLANE DAILY ANSHUL Olanzapine 7.5 mg 12/23/20 21:00 01/02/21 20:00 Olanzapine 7.5 Mg Tablet PO 7.5 mg BEDTIME ANSHUL Administration Trazodone HCl 50 mg 12/22/20 14:39 01/01/21 22:45 Trazodone Hcl 50 Mg Tablet PO 50 mg BEDTIME PRN Administration Insomnia Valproic Acid 375 mg 12/26/20 15:00 01/03/21 15:24 Valproic Acid (As Sodium Salt) 250 Mg/5 Ml Solution PO 375 mg TID ANSHUL Administration Allergies Allergies Allergy/AdvReac Type Severity Reaction Status Date / Time thioridazine [From Mellaril] Allergy Unknown Unknown Verified 12/22/20 13:25 Assessment & Plan Assessment & Plan (1) Bipolar disorder: Status: Acute Code(s): F31.9 - Bipolar disorder, unspecified (2) Delirium: Status: Acute Code(s): R41.0 - Disorientation, unspecified (3) Parkinson disease: Status: Acute Code(s): G20 - Parkinson's disease Assessment and Plan: Elderly female with good social support with the history of Bipolar disorder, Parkinson's disease and admitted for acute changes on her mental status with psychotic symptoms, unable to take care of her ADL's and agitation. Plan: keep Zyprexa 7.5 mg po qhs Increase Depakene up to 375 mg po tid. Level now therapeutic Gather collateral information. Add Augmentin for UTI, today last day of ATB Started on heparin SQ for DVT prophylaxis. Urine culture New BMP, [id number], Lipid panel, VALP tomorrow AM. Greater than 50% of the session was spent on counseling and/or coordination of care Reason for contiued inpatient stay Substantial Risk for: harm to others, inability to function, rapid decompensation and med/psych decompensation
[2021-01-03] MEDS: Ibuprofen 600 MG TABLET PO (16:39)
[2021-01-03] MEDS: OLANZapine 7.5 MG TABLET PO (20:05)
[2021-01-04] MEDS: traZODone HCL 50 MG TABLET PO (03:14)
[2021-01-04 06:00] VITALS: RESP 18
[2021-01-04] MEDS: Levothyroxine Sodium 75 MCG TABLET PO (06:33)
[2021-01-04] MEDS: Acetaminophen 325 MG TABLET 650 MG PO ×3 (08:09→21:00)
[2021-01-04 08:10] VITALS: BP 122/56; PULSE 84
[2021-01-04] MEDS: Carbidopa/Levodopa 25/100 TABLET 1 TAB PO ×3 (08:10→21:01)
[2021-01-04] MEDS: Folic Acid 1 MG TABLET PO (08:10)
[2021-01-04] MEDS: amLODIPine Besylate 2.5 MG TABLET PO (08:10)
--- NOTE | 2021-01-04 13:52 | P.PNPSI_ITS ---
Subjective Subjective Date of Service: 01/04/21 Reason For Visit: Unspec Bipolar D/O Anxiety D/O Subjective Notes: Conditional Voluntary Interim History: The patient has limited mobility due to his knee pain. She has attended several groups but sporadically she gets agitated and yells ?go to hell . Her last Depakote level was 48.2. The last family meeting, her reported that her Depakote level has being tapered off it slowly due to over-sedation. At this moment, sees her mood is more stable we should keep the Depakote at the current dose. We are going to increase olanzapine up to 10 mg p.o. q.h.s. to target mood lability Medication Compliance: Yes Side effects from medications: No Attending Groups: Yes Review of Systems Acute medical concerns: No Medical Review of Systems: unchanged Mental Status Exam Mental Status Exam Patient Appearance: Well Grooomed Patient Orientation: Person Level of Consciousness: Awake and Disoriented Patient Behavior: Suspicious Mood Description: Withdrawn Affect Description: Constricted Patient Cognition Impaired: Yes Ability to Follow Directions: Fair Speech Pattern: Clear Memory Description: Immediate Impaired Hallucinations: None Delusions: Paranoid Ideation Thought Process: Slowed Thinking Thought Content: positive for Circumstantial and positive for Poverty of Content Judgement: Fair Diagnostics Vital Signs (24Hr): Vital Signs - 24 hr 01/04/21 06:00 01/04/21 08:10 Pulse Rate 84 Respiratory Rate 18 Blood Pressure 122/56 L Body Mass Index 27.3 Labs Results: 12/24/20 19:51 01/03/21 06:56 Labs: Laboratory Results - last 48 hr 01/03/21 01/03/21 06:56 06:56 Sodium 144 Potassium 4.3 Chloride 111 H Carbon Dioxide 26 Anion Gap 11 L BUN 36 H Creatinine 2.45 H Estim Creat Clear Calc 18.2 Estimated GFR 19 Random Glucose 95 Estimat Average Glucose 120 Hemoglobin A1c % 5.8 Calcium 9.9 Triglycerides 153 Cholesterol 144 LDL Cholesterol, Calc 84 HDL Cholesterol 30 D Valproic Acid 48.4 L Medications Medications Current Medications Generic Name Dose Route Start Last Admin Trade Name Freq PRN Reason Stop Dose Admin Acetaminophen 650 mg 01/04/21 09:00 01/04/21 08:09 Acetaminophen 325 Mg Tablet PO 650 mg Q6H ANSHUL Administration Al Hydroxide/Mg Hydroxide 30 ml 12/22/20 14:39 Magnesium Hydrox/Alum Hydrox 30 Ml Oral.Susp PO Q6H PRN Heartburn/Nausea Amlodipine Besylate 2.5 mg 12/23/20 09:00 01/04/21 08:10 Amlodipine Besylate 2.5 Mg Tablet PO 2.5 mg DAILY ANSHUL Administration Protocol Carbidopa/Levodopa 1 tab 12/22/20 21:00 01/04/21 08:10 Carbidopa/Levodopa 25/100 Tablet PO 1 tab TID ANSHUL Administration Folic Acid 1 mg 12/23/20 09:00 01/04/21 08:10 Folic Acid 1 Mg Tablet PO 1 mg DAILY ANSHUL Administration Heparin Sodium (Porcine) 5,000 unit 12/26/20 06:00 01/04/21 06:54 Heparin Sodium,Porcine 5,000 Unit/Ml Vial SUBCUT Not Given Q12H [facility] Hydroxyzine HCl 25 mg 12/22/20 14:39 12/25/20 20:34 Hydroxyzine Hcl 25 Mg Tablet PO 25 mg BEDTIME PRN Administration Anxiety Ibuprofen 600 mg 12/26/20 11:10 01/03/21 16:39 Ibuprofen 600 Mg Tablet PO 600 mg Q6H PRN Administration Pain, Moderate (Pain Scale 4-6 Levothyroxine Sodium 75 mcg 12/23/20 06:00 01/04/21 06:33 Levothyroxine Sodium 75 Mcg Tablet PO 75 mcg DAILY@0600 [facility] Administration Magnesium Hydroxide 30 ml 12/22/20 14:39 Milk Of Magnesia 30 Ml Oral.Susp PO DAILY PRN Constipation Medication 1 each 12/26/20 09:00 No Anticoagulant-Heparin Sq Ok MISCELLANE DAILY [facility] Olanzapine 7.5 mg 12/23/20 21:00 01/03/21 20:05 Olanzapine 7.5 Mg Tablet PO 7.5 mg BEDTIME ANSHUL Administration Trazodone HCl 50 mg 12/22/20 14:39 01/04/21 03:14 Trazodone Hcl 50 Mg Tablet PO 50 mg BEDTIME PRN Administration Insomnia Trolamine Salicylate/Aloe Vera 1 appl 01/03/21 21:00 01/04/21 12:22 Trolamine Salicylate 10%/Aloe Cream 35.4 Gm TOPICAL Not Given TID [facility] Valproic Acid 375 mg 12/26/20 15:00 01/04/21 08:09 Valproic Acid (As Sodium Salt) 250 Mg/5 Ml Solution PO 375 mg TID ANSHUL Administration Allergies Allergies Allergy/AdvReac Type Severity Reaction Status Date / Time thioridazine [From Mellaril] Allergy Unknown Unknown Verified 12/22/20 13:25 Assessment & Plan Assessment & Plan (1) Bipolar disorder: Status: Acute Code(s): F31.9 - Bipolar disorder, unspecified (2) Delirium: Status: Acute Code(s): R41.0 - Disorientation, unspecified (3) Parkinson disease: Status: Acute Code(s): G20 - Parkinson's disease Assessment and Plan: Elderly female with good social support with the history of Bipolar disorder, Parkinson's disease and admitted for acute changes on her mental status with psychotic symptoms, unable to take care of her ADL's and agitation. Plan: Increase Zyprexa up to 10 mg po qhs Keep Depakene 375 mg po tid. Level now nearly therapeutic Greater than 50% of the session was spent on counseling and/or coordination of care Reason for contiued inpatient stay Substantial Risk for: harm to self, harm to others, inability to function, rapid decompensation and med/psych decompensation
[2021-01-04] MEDS: Heparin Sodium,Porcine 5,000 UNIT/ML VIAL 5000 UNIT SUBCUT (17:15)
[2021-01-04 18:20] VITALS: BP 114/55; PULSE 88; RESP 16; TEMP 36.2; O2SAT 99
[2021-01-04] MEDS: OLANZapine 10 MG TABLET PO (21:01)
[2021-01-05] MEDS: Levothyroxine Sodium 75 MCG TABLET PO (05:05)
[2021-01-05 07:00] VITALS: BMI 26.4
[2021-01-05] MEDS: Folic Acid 1 MG TABLET PO (08:18)
[2021-01-05] MEDS: Ibuprofen 600 MG TABLET PO ×2 (08:19→14:03)
[2021-01-05] MEDS: Carbidopa/Levodopa 25/100 TABLET 1 TAB PO ×3 (08:19→19:46)
[2021-01-05] MEDS: Acetaminophen 325 MG TABLET 650 MG PO ×3 (08:19→19:45)
[2021-01-05 08:20] VITALS: BP 129/57; PULSE 73
[2021-01-05] MEDS: amLODIPine Besylate 2.5 MG TABLET PO (08:20)
--- NOTE | 2021-01-05 13:35 | P.PNPSI_ITS ---
Subjective Subjective Date of Service: 01/05/21 Reason For Visit: Unspec Bipolar D/O Anxiety D/O Subjective Notes: Conditional Voluntary Interim History: The patient was awake and alert today in the morning, she presented with brighter affect and cooperative. Yesterday we increased the dose of Zyprexa to target mood lability. Medication Compliance: Yes Side effects from medications: No Review of Systems Acute medical concerns: No Medical Review of Systems: unchanged Mental Status Exam Mental Status Exam Patient Appearance: Well Grooomed (on hospital gowns) Patient Orientation: Person Level of Consciousness: Drowsy Patient Behavior: Passive and Sundowning Mood Description: Constricted Affect Description: Constricted Patient Cognition Impaired: Yes Ability to Follow Directions: Good Speech Pattern: Clear Delusions: Paranoid Ideation Thought Process: Illogical and Slowed Thinking Thought Content: positive for Circumstantial, positive for Poverty of Content and positive for Preoccupation Judgement: Fair Diagnostics Vital Signs (24Hr): Vital Signs - 24 hr 01/04/21 18:20 01/05/21 08:20 Temperature 97.2 F Pulse Rate 88 73 Respiratory Rate 16 Blood Pressure 114/55 L 129/57 L Pulse Oximetry 99 Body Mass Index 27.3 Labs Results: 12/24/20 19:51 01/03/21 06:56 Medications Medications Current Medications Generic Name Dose Route Start Last Admin Trade Name Bea PRN Reason Stop Dose Admin Acetaminophen 650 mg 01/04/21 09:00 01/05/21 08:19 Acetaminophen 325 Mg Tablet PO 650 mg Q6H ANSHUL Administration Al Hydroxide/Mg Hydroxide 30 ml 12/22/20 14:39 Magnesium Hydrox/Alum Hydrox 30 Ml Oral.Susp PO Q6H PRN Heartburn/Nausea Amlodipine Besylate 2.5 mg 12/23/20 09:00 01/05/21 08:20 Amlodipine Besylate 2.5 Mg Tablet PO 2.5 mg DAILY ANSHUL Administration Protocol Carbidopa/Levodopa 1 tab 12/22/20 21:00 01/05/21 08:19 Carbidopa/Levodopa 25/100 Tablet PO 1 tab TID ANSHUL Administration Folic Acid 1 mg 12/23/20 09:00 01/05/21 08:18 Folic Acid 1 Mg Tablet PO 1 mg DAILY ANSHUL Administration Heparin Sodium (Porcine) 5,000 unit 12/26/20 06:00 01/05/21 05:25 Heparin Sodium,Porcine 5,000 Unit/Ml Vial SUBCUT Not Given Q12H [facility] Hydroxyzine HCl 25 mg 12/22/20 14:39 12/25/20 20:34 Hydroxyzine Hcl 25 Mg Tablet PO 25 mg BEDTIME PRN Administration Anxiety Ibuprofen 600 mg 12/26/20 11:10 01/05/21 08:19 Ibuprofen 600 Mg Tablet PO 600 mg Q6H PRN Administration Pain, Moderate (Pain Scale 4-6 Levothyroxine Sodium 75 mcg 12/23/20 06:00 01/05/21 05:05 Levothyroxine Sodium 75 Mcg Tablet PO 75 mcg DAILY@0600 ANSHUL Administration Magnesium Hydroxide 30 ml 12/22/20 14:39 Milk Of Magnesia 30 Ml Oral.Susp PO DAILY PRN Constipation Medication 1 each 12/26/20 09:00 No Anticoagulant-Heparin Sq Ok MISCELLANE DAILY [facility] Olanzapine 10 mg 01/04/21 21:00 01/04/21 21:01 Olanzapine 10 Mg Tablet PO 10 mg BEDTIME ANSHUL Administration Trazodone HCl 50 mg 12/22/20 14:39 01/04/21 03:14 Trazodone Hcl 50 Mg Tablet PO 50 mg BEDTIME PRN Administration Insomnia Trolamine Salicylate/Aloe Vera 1 appl 01/03/21 21:00 01/05/21 08:21 Trolamine Salicylate 10%/Aloe Cream 35.4 Gm TOPICAL Not Given TID [facility] Valproic Acid 375 mg 12/26/20 15:00 01/05/21 08:18 Valproic Acid (As Sodium Salt) 250 Mg/5 Ml Solution PO 375 mg TID ANSHUL Administration Allergies Allergies Allergy/AdvReac Type Severity Reaction Status Date / Time thioridazine [From Mellaril] Allergy Unknown Unknown Verified 12/22/20 13:25 Assessment & Plan Assessment & Plan (1) Bipolar disorder: Status: Acute Code(s): F31.9 - Bipolar disorder, unspecified (2) Delirium: Status: Acute Code(s): R41.0 - Disorientation, unspecified (3) Parkinson disease: Status: Acute Code(s): G20 - Parkinson's disease Assessment and Plan: Elderly female with good social support with the history of Bipolar disorder, Parkinson's disease and admitted for acute changes on her mental status with psychotic symptoms, unable to take care of her ADL's and agitation. Plan: Increase Zyprexa up to 10 mg po qhs Keep Depakene 375 mg po tid. Level now nearly therapeutic Greater than 50% of the session was spent on counseling and/or coordination of care Reason for contiued inpatient stay Substantial Risk for: inability to function, rapid decompensation and med/psych decompensation
[2021-01-05 18:00] VITALS: BP 110/53; PULSE 71; RESP 16; TEMP 36.6; O2SAT 100
[2021-01-05] MEDS: Heparin Sodium,Porcine 5,000 UNIT/ML VIAL 5000 UNIT SUBCUT (18:36)
[2021-01-05] MEDS: OLANZapine 10 MG TABLET PO (19:47)
[2021-01-06] MEDS: Acetaminophen 325 MG TABLET 650 MG PO ×4 (01:59→22:41)
[2021-01-06] MEDS: Levothyroxine Sodium 75 MCG TABLET PO (05:44)
[2021-01-06 06:00] VITALS: BP 131/62; PULSE 65; RESP 18; TEMP 36.8; O2SAT 97
[2021-01-06 09:09] VITALS: BP 121/58; PULSE 73
[2021-01-06] MEDS: amLODIPine Besylate 2.5 MG TABLET PO (09:09)
[2021-01-06] MEDS: Carbidopa/Levodopa 25/100 TABLET 1 TAB PO ×3 (09:09→20:08)
[2021-01-06] MEDS: Folic Acid 1 MG TABLET PO (09:09)
--- NOTE | 2021-01-06 12:33 | HO.PSYCHPN ---
Subjective Subjective Date of Service: 01/06/21 Reason For Visit: Unspec Bipolar D/O Anxiety D/O Interim History: The staff reported that the patient had a bath yesterday. She was extremely dirty, it is clear that the patient was unable to take a shower or bathe at home for several weeks. She was a little resistant to care but finally she agreed co hygiene. The patient needs constant prompts for ADL is and sometimes she gets agitated and yells ?go to hell . Recently, she introduces that phrase in songs. Medication Compliance: Yes Side effects from medications: No Attending Groups: Intermittent Review of Systems Acute medical concerns: No Medical Review of Systems: unchanged Mental Status Exam Mental Status Exam Patient Appearance: Well Grooomed and Disheveled Patient Orientation: Person Level of Consciousness: Awake Patient Behavior: Appropriate and Guarded Mood Description: Suspicious and Withdrawn Affect Description: Constricted Patient Cognition Impaired: Yes Ability to Follow Directions: Fair Speech Pattern: Monotone Memory Description: Remote Impaired and Immediate Impaired Hallucinations: None Delusions: Paranoid Ideation Thought Process: Slowed Thinking Thought Content: positive for Perseveration and positive for Poverty of Content Judgement: Poor Diagnostics Vital Signs (24Hr): Vital Signs - 24 hr 01/05/21 18:00 01/06/21 06:00 01/06/21 09:09 Temperature 97.8 F 98.3 F Pulse Rate 71 65 73 Respiratory Rate 16 18 Blood Pressure 110/53 L 131/62 121/58 L Pulse Oximetry 100 97 Body Mass Index 26.4 Labs Results: 12/24/20 19:51 01/03/21 06:56 Medications Medications Current Medications Generic Name Dose Route Start Last Admin Trade Name Bea PRN Reason Stop Dose Admin Acetaminophen 650 mg 01/04/21 09:00 01/06/21 09:09 Acetaminophen 325 Mg Tablet PO 650 mg Q6H ANSHUL Administration Al Hydroxide/Mg Hydroxide 30 ml 12/22/20 14:39 Magnesium Hydrox/Alum Hydrox 30 Ml Oral.Susp PO Q6H PRN Heartburn/Nausea Amlodipine Besylate 2.5 mg 12/23/20 09:00 01/06/21 09:09 Amlodipine Besylate 2.5 Mg Tablet PO 2.5 mg DAILY ANSHUL Administration Protocol Carbidopa/Levodopa 1 tab 12/22/20 21:00 01/06/21 09:09 Carbidopa/Levodopa 25/100 Tablet PO 1 tab TID ANSHUL Administration Folic Acid 1 mg 12/23/20 09:00 01/06/21 09:09 Folic Acid 1 Mg Tablet PO 1 mg DAILY ANSHUL Administration Heparin Sodium (Porcine) 5,000 unit 12/26/20 06:00 01/06/21 05:50 Heparin Sodium,Porcine 5,000 Unit/Ml Vial SUBCUT Not Given Q12H [facility] Hydroxyzine HCl 25 mg 12/22/20 14:39 12/25/20 20:34 Hydroxyzine Hcl 25 Mg Tablet PO 25 mg BEDTIME PRN Administration Anxiety Ibuprofen 600 mg 12/26/20 11:10 01/05/21 14:03 Ibuprofen 600 Mg Tablet PO 600 mg Q6H PRN Administration Pain, Moderate (Pain Scale 4-6 Levothyroxine Sodium 75 mcg 12/23/20 06:00 01/06/21 05:44 Levothyroxine Sodium 75 Mcg Tablet PO 75 mcg DAILY@0600 ANSHUL Administration Magnesium Hydroxide 30 ml 12/22/20 14:39 Milk Of Magnesia 30 Ml Oral.Susp PO DAILY PRN Constipation Medication 1 each 12/26/20 09:00 No Anticoagulant-Heparin Sq Ok MISCELLANE DAILY [facility] Olanzapine 10 mg 01/04/21 21:00 01/05/21 19:47 Olanzapine 10 Mg Tablet PO 10 mg BEDTIME ANSHUL Administration Trazodone HCl 50 mg 12/22/20 14:39 01/04/21 03:14 Trazodone Hcl 50 Mg Tablet PO 50 mg BEDTIME PRN Administration Insomnia Trolamine Salicylate/Aloe Vera 1 appl 01/03/21 21:00 01/06/21 09:11 Trolamine Salicylate 10%/Aloe Cream 35.4 Gm TOPICAL Not Given TID [facility] Valproic Acid 375 mg 12/26/20 15:00 01/06/21 09:09 Valproic Acid (As Sodium Salt) 250 Mg/5 Ml Solution PO 375 mg TID ANSHUL Administration Allergies Allergies Allergy/AdvReac Type Severity Reaction Status Date / Time thioridazine [From Mellaril] Allergy Unknown Unknown Verified 12/22/20 13:25 Assessment & Plan Assessment & Plan (1) Bipolar disorder: Status: Acute Code(s): F31.9 - Bipolar disorder, unspecified (2) Delirium: Status: Acute Code(s): R41.0 - Disorientation, unspecified (3) Parkinson disease: Status: Acute Code(s): G20 - Parkinson's disease Assessment and Plan: Elderly female with good social support with the history of Bipolar disorder, Parkinson's disease and admitted for acute changes on her mental status with psychotic symptoms, unable to take care of her ADL's and agitation. We have notice that the level of functioning of the patient is very low and she could be a good candidate for SNF. Plan: Keep same treatment Greater than 50% of the session was spent on counseling and/or coordination of care Reason for contiued inpatient stay Substantial Risk for: inability to function, rapid decompensation and med/psych decompensation
--- NOTE | 2021-01-06 16:06 | MHC.CLN ---
NUTRITION PATIENT ASLEEP AT TIME OF VISIT. PER NURSING EATS ABOUT 50% OF MEALS. WEIGHT HX REVIEWED:12/27=68.4 KG; 12/30=68 KG; 01/06=65.5 KG. WEIGHT LOSS X 10 DAYS=4.2%. CONTINUE TO FOLLOW WEEKLY.
[2021-01-06 18:00] VITALS: BP 110/68; PULSE 73; RESP 18; TEMP 36.4; O2SAT 99
[2021-01-06] MEDS: OLANZapine 10 MG TABLET PO (20:08)
[2021-01-06] MEDS: traZODone HCL 50 MG TABLET PO (20:08)
[2021-01-07] MEDS: Acetaminophen 325 MG TABLET 650 MG PO ×2 (04:56→15:11)
[2021-01-07] MEDS: Levothyroxine Sodium 75 MCG TABLET PO (04:57)
[2021-01-07] MEDS: Ibuprofen 600 MG TABLET PO (08:10)
[2021-01-07] MEDS: Carbidopa/Levodopa 25/100 TABLET 1 TAB PO ×3 (08:10→20:00)
[2021-01-07] MEDS: Folic Acid 1 MG TABLET PO (08:11)
[2021-01-07] MEDS: amLODIPine Besylate 2.5 MG TABLET PO (08:11)
[2021-01-07] MEDS: Heparin Sodium,Porcine 5,000 UNIT/ML VIAL 5000 UNIT SUBCUT ×2 (08:19→17:48)
--- NOTE | 2021-01-07 10:00 | HO.PSYCHPN ---
Subjective Subjective Date of Service: 01/07/21 Reason For Visit: Unspec Bipolar D/O Anxiety D/O Subjective Notes: Conditional Voluntary Interim History: Staff has rep;orted that the patient is more active in the unit, at but so far, stable. Sporadically, she gets loud go to hell Review of Systems Acute medical concerns: No Medical Review of Systems: unchanged Mental Status Exam Mental Status Exam Patient Appearance: Well Grooomed Patient Orientation: Person Level of Consciousness: Disoriented Patient Behavior: Passive Mood Description: Calm Affect Description: Labile Patient Cognition Impaired: Yes Ability to Follow Directions: Good Speech Pattern: Clear Delusions: Paranoid Ideation Thought Process: Distracted Thought Content: positive for Perseveration and positive for Thought Blocking Judgement: Fair Diagnostics Vital Signs (24Hr): Vital Signs - 24 hr 01/06/21 18:00 Temperature 97.6 F Pulse Rate 73 Respiratory Rate 18 Blood Pressure 110/68 Pulse Oximetry 99 Body Mass Index 26.4 Labs Results: 12/24/20 19:51 01/03/21 06:56 Medications Medications Current Medications Generic Name Dose Route Start Last Admin Trade Name Freq PRN Reason Stop Dose Admin Acetaminophen 650 mg 01/04/21 09:00 01/07/21 04:56 Acetaminophen 325 Mg Tablet PO 650 mg Q6H ANSHUL Administration Al Hydroxide/Mg Hydroxide 30 ml 12/22/20 14:39 Magnesium Hydrox/Alum Hydrox 30 Ml Oral.Susp PO Q6H PRN Heartburn/Nausea Amlodipine Besylate 2.5 mg 12/23/20 09:00 01/07/21 08:11 Amlodipine Besylate 2.5 Mg Tablet PO 2.5 mg DAILY ANSHUL Administration Protocol Carbidopa/Levodopa 1 tab 12/22/20 21:00 01/07/21 08:10 Carbidopa/Levodopa 25/100 Tablet PO 1 tab TID ANSHUL Administration Folic Acid 1 mg 12/23/20 09:00 01/07/21 08:11 Folic Acid 1 Mg Tablet PO 1 mg DAILY ANSHUL Administration Heparin Sodium (Porcine) 5,000 unit 12/26/20 06:00 01/07/21 08:19 Heparin Sodium,Porcine 5,000 Unit/Ml Vial SUBCUT 5,000 unit Q12H ANSHUL Administration Hydroxyzine HCl 25 mg 12/22/20 14:39 12/25/20 20:34 Hydroxyzine Hcl 25 Mg Tablet PO 25 mg BEDTIME PRN Administration Anxiety Ibuprofen 600 mg 12/26/20 11:10 01/07/21 08:10 Ibuprofen 600 Mg Tablet PO 600 mg Q6H PRN Administration Pain, Moderate (Pain Scale 4-6 Levothyroxine Sodium 75 mcg 12/23/20 06:00 01/07/21 04:57 Levothyroxine Sodium 75 Mcg Tablet PO 75 mcg DAILY@0600 ANSHUL Administration Magnesium Hydroxide 30 ml 12/22/20 14:39 Milk Of Magnesia 30 Ml Oral.Susp PO DAILY PRN Constipation Medication 1 each 12/26/20 09:00 No Anticoagulant-Heparin Sq Ok MISCELLANE DAILY [facility] Olanzapine 10 mg 01/04/21 21:00 01/06/21 20:08 Olanzapine 10 Mg Tablet PO 10 mg BEDTIME ANSHUL Administration Trazodone HCl 50 mg 12/22/20 14:39 01/06/21 20:08 Trazodone Hcl 50 Mg Tablet PO 50 mg BEDTIME PRN Administration Insomnia Trolamine Salicylate/Aloe Vera 1 appl 01/03/21 21:00 01/07/21 08:23 Trolamine Salicylate 10%/Aloe Cream 35.4 Gm TOPICAL Not Given TID ANSHUL Valproic Acid 375 mg 12/26/20 15:00 01/07/21 08:11 Valproic Acid (As Sodium Salt) 250 Mg/5 Ml Solution PO 375 mg TID ANSHUL Administration Allergies Allergies Allergy/AdvReac Type Severity Reaction Status Date / Time thioridazine [From Mellaril] Allergy Unknown Unknown Verified 12/22/20 13:25 Assessment & Plan Assessment & Plan (1) Bipolar disorder: Status: Acute Code(s): F31.9 - Bipolar disorder, unspecified (2) Delirium: Status: Acute Code(s): R41.0 - Disorientation, unspecified (3) Parkinson disease: Status: Acute Code(s): G20 - Parkinson's disease Assessment and Plan: Elderly female with good social support with the history of Bipolar disorder, Parkinson's disease and admitted for acute changes on her mental status with psychotic symptoms, unable to take care of her ADL's and agitation. We have notice that the level of functioning of the patient is very low and she could be a good candidate for SNF. Plan: Keep same treatment Greater than 50% of the session was spent on counseling and/or coordination of care Reason for contiued inpatient stay Substantial Risk for: inability to function, rapid decompensation and med/psych decompensation
[2021-01-07 18:00] VITALS: BP 105/48; PULSE 72; RESP 16; TEMP 36.1; O2SAT 97
[2021-01-07] MEDS: OLANZapine 10 MG TABLET PO (20:00)
[2021-01-08] MEDS: Acetaminophen 325 MG TABLET 650 MG PO ×4 (02:05→20:53)
[2021-01-08] MEDS: Levothyroxine Sodium 75 MCG TABLET PO (05:33)
[2021-01-08 08:36] VITALS: BP 125/58; PULSE 77; RESP 16; TEMP 37; O2SAT 97
[2021-01-08 08:38] VITALS: BP 125/58; PULSE 72
[2021-01-08] MEDS: amLODIPine Besylate 2.5 MG TABLET PO (08:38)
[2021-01-08] MEDS: Carbidopa/Levodopa 25/100 TABLET 1 TAB PO ×3 (08:39→20:54)
[2021-01-08] MEDS: Heparin Sodium,Porcine 5,000 UNIT/ML VIAL 5000 UNIT SUBCUT (08:39)
[2021-01-08] MEDS: Ibuprofen 600 MG TABLET PO (08:39)
[2021-01-08] MEDS: Folic Acid 1 MG TABLET PO (08:39)
--- NOTE | 2021-01-08 09:16 | HO.PSYCHPN ---
Subjective Subjective Date of Service: 01/08/21 Reason For Visit: Unspec Bipolar D/O Anxiety D/O Subjective Notes: Conditional Voluntary Interim History: Nursing staff reported the patient was continent at night. She is mostly in her room isolative. She usually goes out of her room only for meals in the common area. The staff will encourage today so she can participate more in activities of the unit. During the interview, the patient reported that she is okay but she looks pleasantly confused Review of Systems Acute medical concerns: No Medical Review of Systems: unchanged Mental Status Exam Mental Status Exam Patient Appearance: Well Grooomed (On hospital gowns) Patient Orientation: Person, Place, Time and Situation Level of Consciousness: Awake Patient Behavior: Suspicious Mood Description: Calm Affect Description: Constricted and Labile Ability to Follow Directions: Fair Speech Pattern: Clear Hallucinations: None Delusions: Paranoid Ideation Thought Process: Linear and Slowed Thinking Thought Content: positive for Circumstantial Judgement: Fair Diagnostics Vital Signs (24Hr): Vital Signs - 24 hr 01/07/21 18:00 01/08/21 08:36 01/08/21 08:38 Temperature 97.0 F 98.6 F Pulse Rate 72 77 72 Respiratory Rate 16 16 Blood Pressure 105/48 L 125/58 L 125/58 L Pulse Oximetry 97 97 Body Mass Index 26.4 Labs Results: 12/24/20 19:51 01/03/21 06:56 Medications Medications Current Medications Generic Name Dose Route Start Last Admin Trade Name Freq PRN Reason Stop Dose Admin Acetaminophen 650 mg 01/04/21 09:00 01/08/21 08:38 Acetaminophen 325 Mg Tablet PO 650 mg Q6H ANSHUL Administration Al Hydroxide/Mg Hydroxide 30 ml 12/22/20 14:39 Magnesium Hydrox/Alum Hydrox 30 Ml Oral.Susp PO Q6H PRN Heartburn/Nausea Amlodipine Besylate 2.5 mg 12/23/20 09:00 01/08/21 08:38 Amlodipine Besylate 2.5 Mg Tablet PO 2.5 mg DAILY ANSHUL Administration Protocol Carbidopa/Levodopa 1 tab 12/22/20 21:00 01/08/21 08:39 Carbidopa/Levodopa 25/100 Tablet PO 1 tab TID ANSHUL Administration Folic Acid 1 mg 12/23/20 09:00 01/08/21 08:39 Folic Acid 1 Mg Tablet PO 1 mg DAILY ANSHUL Administration Heparin Sodium (Porcine) 5,000 unit 12/26/20 06:00 01/08/21 08:39 Heparin Sodium,Porcine 5,000 Unit/Ml Vial SUBCUT 5,000 unit Q12H ANSHUL Administration Hydroxyzine HCl 25 mg 12/22/20 14:39 12/25/20 20:34 Hydroxyzine Hcl 25 Mg Tablet PO 25 mg BEDTIME PRN Administration Anxiety Ibuprofen 600 mg 12/26/20 11:10 01/08/21 08:39 Ibuprofen 600 Mg Tablet PO 600 mg Q6H PRN Administration Pain, Moderate (Pain Scale 4-6 Levothyroxine Sodium 75 mcg 12/23/20 06:00 01/08/21 05:33 Levothyroxine Sodium 75 Mcg Tablet PO 75 mcg DAILY@0600 ANSHUL Administration Magnesium Hydroxide 30 ml 12/22/20 14:39 Milk Of Magnesia 30 Ml Oral.Susp PO DAILY PRN Constipation Medication 1 each 12/26/20 09:00 No Anticoagulant-Heparin Sq Ok MISCELLANE DAILY [facility] Olanzapine 10 mg 01/04/21 21:00 01/07/21 20:00 Olanzapine 10 Mg Tablet PO 10 mg BEDTIME ANSHUL Administration Trazodone HCl 50 mg 12/22/20 14:39 01/06/21 20:08 Trazodone Hcl 50 Mg Tablet PO 50 mg BEDTIME PRN Administration Insomnia Trolamine Salicylate/Aloe Vera 1 appl 01/03/21 21:00 01/08/21 00:13 Trolamine Salicylate 10%/Aloe Cream 35.4 Gm TOPICAL Not Given TID [facility] Valproic Acid 375 mg 12/26/20 15:00 01/08/21 08:38 Valproic Acid (As Sodium Salt) 250 Mg/5 Ml Solution PO 375 mg TID ANSHUL Administration Allergies Allergies Allergy/AdvReac Type Severity Reaction Status Date / Time thioridazine [From Mellaril] Allergy Unknown Unknown Verified 12/22/20 13:25 Assessment & Plan Assessment & Plan (1) Bipolar disorder: Status: Acute Code(s): F31.9 - Bipolar disorder, unspecified (2) Delirium: Status: Acute Code(s): R41.0 - Disorientation, unspecified (3) Parkinson disease: Status: Acute Code(s): G20 - Parkinson's disease Assessment and Plan: Elderly female with good social support with the history of Bipolar disorder, Parkinson's disease and admitted for acute changes on her mental status with psychotic symptoms, unable to take care of her ADL's and agitation. We have notice that the level of functioning of the patient is very low and she could be a good candidate for SNF. Plan: Keep same treatment Greater than 50% of the session was spent on counseling and/or coordination of care Reason for contiued inpatient stay Substantial Risk for: inability to function, rapid decompensation and med/psych decompensation
[2021-01-08] MEDS: OLANZapine 10 MG TABLET PO (20:54)
[2021-01-09 06:00] VITALS: BP 120/57; PULSE 67; RESP 18; TEMP 36.4; O2SAT 96
[2021-01-09] MEDS: Levothyroxine Sodium 75 MCG TABLET PO (06:12)
[2021-01-09] MEDS: Heparin Sodium,Porcine 5,000 UNIT/ML VIAL 5000 UNIT SUBCUT (06:12)
[2021-01-09] MEDS: Ibuprofen 600 MG TABLET PO (06:23)
[2021-01-09] MEDS: Acetaminophen 325 MG TABLET 650 MG PO ×3 (09:36→21:34)
[2021-01-09] MEDS: amLODIPine Besylate 2.5 MG TABLET PO (09:37)
[2021-01-09] MEDS: Folic Acid 1 MG TABLET PO (09:37)
[2021-01-09] MEDS: Carbidopa/Levodopa 25/100 TABLET 1 TAB PO ×3 (09:37→21:35)
--- NOTE | 2021-01-09 11:49 | HO.PSYCHPN ---
Subjective Subjective Date of Service: 01/09/21 Reason For Visit: Unspec Bipolar D/O Anxiety D/O Subjective Notes: Conditional Voluntary Interim History: Nursing staff has reported that in the evening she becomes more irritable, talking to herself and answering with different type of voices. Also, the staff has reported that she needs constant help for ADL, and we have considered that she would be better served at an SNF. I interviewed the patient was sedated but denies new symptoms. Mental Status Exam Mental Status Exam Patient Appearance: Well Grooomed (0 hospital gowns) Patient Orientation: Person Level of Consciousness: Awake Patient Behavior: Passive and Suspicious Mood Description: Constricted Affect Description: Constricted and Labile Patient Cognition Impaired: Yes Ability to Follow Directions: Fair Speech Pattern: Clear Hallucinations: None Delusions: Paranoid Ideation Thought Process: Illogical and Evasive Thought Content: positive for Circumstantial Judgement: Poor Diagnostics Vital Signs (24Hr): Vital Signs - 24 hr 01/09/21 06:00 Temperature 97.6 F Pulse Rate 67 Respiratory Rate 18 Blood Pressure 120/57 L Pulse Oximetry 96 Body Mass Index 26.4 Labs Results: 12/24/20 19:51 01/03/21 06:56 Medications Medications Current Medications Generic Name Dose Route Start Last Admin Trade Name Freq PRN Reason Stop Dose Admin Acetaminophen 650 mg 01/04/21 09:00 01/09/21 09:36 Acetaminophen 325 Mg Tablet PO 650 mg Q6H ANSHUL Administration Al Hydroxide/Mg Hydroxide 30 ml 12/22/20 14:39 Magnesium Hydrox/Alum Hydrox 30 Ml Oral.Susp PO Q6H PRN Heartburn/Nausea Amlodipine Besylate 2.5 mg 12/23/20 09:00 01/09/21 09:37 Amlodipine Besylate 2.5 Mg Tablet PO 2.5 mg DAILY ANSHUL Administration Protocol Carbidopa/Levodopa 1 tab 12/22/20 21:00 01/09/21 09:37 Carbidopa/Levodopa 25/100 Tablet PO 1 tab TID ANSHUL Administration Folic Acid 1 mg 12/23/20 09:00 01/09/21 09:37 Folic Acid 1 Mg Tablet PO 1 mg DAILY ANSHUL Administration Heparin Sodium (Porcine) 5,000 unit 12/26/20 06:00 01/09/21 06:12 Heparin Sodium,Porcine 5,000 Unit/Ml Vial SUBCUT 5,000 unit Q12H ANSHUL Administration Hydroxyzine HCl 25 mg 12/22/20 14:39 12/25/20 20:34 Hydroxyzine Hcl 25 Mg Tablet PO 25 mg BEDTIME PRN Administration Anxiety Ibuprofen 600 mg 12/26/20 11:10 01/09/21 06:23 Ibuprofen 600 Mg Tablet PO 600 mg Q6H PRN Administration Pain, Moderate (Pain Scale 4-6 Levothyroxine Sodium 75 mcg 12/23/20 06:00 01/09/21 06:12 Levothyroxine Sodium 75 Mcg Tablet PO 75 mcg DAILY@0600 ANSHUL Administration Magnesium Hydroxide 30 ml 12/22/20 14:39 Milk Of Magnesia 30 Ml Oral.Susp PO DAILY PRN Constipation Medication 1 each 12/26/20 09:00 No Anticoagulant-Heparin Sq Ok MISCELLANE DAILY ANSHUL Olanzapine 10 mg 01/04/21 21:00 01/08/21 20:54 Olanzapine 10 Mg Tablet PO 10 mg BEDTIME ANSHUL Administration Trazodone HCl 50 mg 12/22/20 14:39 01/06/21 20:08 Trazodone Hcl 50 Mg Tablet PO 50 mg BEDTIME PRN Administration Insomnia Trolamine Salicylate/Aloe Vera 1 appl 01/03/21 21:00 01/09/21 09:37 Trolamine Salicylate 10%/Aloe Cream 35.4 Gm TOPICAL Not Given TID ANSHUL Valproic Acid 375 mg 12/26/20 15:00 01/09/21 09:37 Valproic Acid (As Sodium Salt) 250 Mg/5 Ml Solution PO 375 mg TID ANSHUL Administration Allergies Allergies Allergy/AdvReac Type Severity Reaction Status Date / Time thioridazine [From Mellaril] Allergy Unknown Unknown Verified 12/22/20 13:25 Assessment & Plan Assessment & Plan (1) Bipolar disorder: Status: Acute Code(s): F31.9 - Bipolar disorder, unspecified (2) Delirium: Status: Acute Code(s): R41.0 - Disorientation, unspecified (3) Parkinson disease: Status: Acute Code(s): G20 - Parkinson's disease Assessment and Plan: Elderly female with good social support with the history of Bipolar disorder, Parkinson's disease and admitted for acute changes on her mental status with psychotic symptoms, unable to take care of her ADL's and agitation. We have notice that the level of functioning of the patient is very low and she could be a good candidate for SNF. Plan: Keep same treatment Greater than 50% of the session was spent on counseling and/or coordination of care Reason for contiued inpatient stay Substantial Risk for: inability to function, rapid decompensation and med/psych decompensation
[2021-01-09 20:20] VITALS: BP 107/53; PULSE 69; RESP 17; TEMP 36.1; O2SAT 98
[2021-01-09] MEDS: OLANZapine 10 MG TABLET PO (21:35)
[2021-01-10] MEDS: Acetaminophen 325 MG TABLET 650 MG PO ×4 (04:13→20:02)
[2021-01-10] MEDS: Heparin Sodium,Porcine 5,000 UNIT/ML VIAL 5000 UNIT SUBCUT ×2 (05:07→18:05)
[2021-01-10 05:09] VITALS: BP 102/57; PULSE 66; RESP 16; TEMP 36.2; O2SAT 99
[2021-01-10] MEDS: Levothyroxine Sodium 75 MCG TABLET PO (05:09)
[2021-01-10] MEDS: amLODIPine Besylate 2.5 MG TABLET PO (09:16)
[2021-01-10] MEDS: Carbidopa/Levodopa 25/100 TABLET 1 TAB PO ×2 (09:17→20:03)
[2021-01-10] MEDS: Folic Acid 1 MG TABLET PO (09:17)
[2021-01-10] MEDS: Ibuprofen 600 MG TABLET PO (12:32)
--- NOTE | 2021-01-10 13:56 | P.PNPSI_ITS ---
Subjective Subjective Date of Service: 01/10/21 Reason For Visit: Unspec Bipolar D/O Anxiety D/O Subjective Notes: Conditional Voluntary Interim History: The patient remains mostly isolative in his room. Nursing staff reported that they have to move the patient to the common area to have meals. Nursing staff has reported that the patient can not do ADL is without help. None interview, the patient was with her and she denies any new symptoms. Review of Systems Acute medical concerns: No Medical Review of Systems: unchanged Mental Status Exam Mental Status Exam Patient Appearance: Well Grooomed Patient Orientation: Person and Situation Level of Consciousness: Awake Patient Behavior: Guarded and Passive Mood Description: Withdrawn Affect Description: Constricted Patient Cognition Impaired: No Ability to Follow Directions: Fair Speech Pattern: Clear Hallucinations: None Delusions: Not Present Thought Process: Linear Thought Content: positive for Perseveration, positive for Poverty of Content and positive for Thought Blocking Judgement: Fair Diagnostics Vital Signs (24Hr): Vital Signs - 24 hr 01/09/21 20:20 01/10/21 05:09 Temperature 96.9 F 97.2 F Pulse Rate 69 66 Respiratory Rate 17 16 Blood Pressure 107/53 L 102/57 L Pulse Oximetry 98 99 Body Mass Index 26.4 Labs Results: 12/24/20 19:51 01/03/21 06:56 Medications Medications Current Medications Generic Name Dose Route Start Last Admin Trade Name Bea PRN Reason Stop Dose Admin Acetaminophen 650 mg 01/04/21 09:00 01/10/21 09:17 Acetaminophen 325 Mg Tablet PO 650 mg Q6H ANSHUL Administration Al Hydroxide/Mg Hydroxide 30 ml 12/22/20 14:39 Magnesium Hydrox/Alum Hydrox 30 Ml Oral.Susp PO Q6H PRN Heartburn/Nausea Amlodipine Besylate 2.5 mg 12/23/20 09:00 01/10/21 09:16 Amlodipine Besylate 2.5 Mg Tablet PO 2.5 mg DAILY ANSHUL Administration Protocol Carbidopa/Levodopa 1 tab 12/22/20 21:00 01/10/21 09:17 Carbidopa/Levodopa 25/100 Tablet PO 1 tab TID ANSHUL Administration Folic Acid 1 mg 12/23/20 09:00 01/10/21 09:17 Folic Acid 1 Mg Tablet PO 1 mg DAILY ANSHUL Administration Heparin Sodium (Porcine) 5,000 unit 12/26/20 06:00 01/10/21 05:07 Heparin Sodium,Porcine 5,000 Unit/Ml Vial SUBCUT 5,000 unit Q12H ANSHUL Administration Hydroxyzine HCl 25 mg 12/22/20 14:39 12/25/20 20:34 Hydroxyzine Hcl 25 Mg Tablet PO 25 mg BEDTIME PRN Administration Anxiety Ibuprofen 600 mg 12/26/20 11:10 01/10/21 12:32 Ibuprofen 600 Mg Tablet PO 600 mg Q6H PRN Administration Pain, Moderate (Pain Scale 4-6 Levothyroxine Sodium 75 mcg 12/23/20 06:00 01/10/21 05:09 Levothyroxine Sodium 75 Mcg Tablet PO 75 mcg DAILY@0600 ANSHUL Administration Magnesium Hydroxide 30 ml 12/22/20 14:39 Milk Of Magnesia 30 Ml Oral.Susp PO DAILY PRN Constipation Medication 1 each 12/26/20 09:00 No Anticoagulant-Heparin Sq Ok MISCELLANE DAILY [facility] Olanzapine 10 mg 01/04/21 21:00 01/09/21 21:35 Olanzapine 10 Mg Tablet PO 10 mg BEDTIME ANSHUL Administration Trazodone HCl 50 mg 12/22/20 14:39 01/06/21 20:08 Trazodone Hcl 50 Mg Tablet PO 50 mg BEDTIME PRN Administration Insomnia Trolamine Salicylate/Aloe Vera 1 appl 01/03/21 21:00 01/10/21 09:31 Trolamine Salicylate 10%/Aloe Cream 35.4 Gm TOPICAL Not Given TID [facility] Valproic Acid 375 mg 12/26/20 15:00 01/10/21 09:16 Valproic Acid (As Sodium Salt) 250 Mg/5 Ml Solution PO 375 mg TID ANSHUL Administration Allergies Allergies Allergy/AdvReac Type Severity Reaction Status Date / Time thioridazine [From Mellaril] Allergy Unknown Unknown Verified 12/22/20 13:25 Assessment & Plan Assessment & Plan (1) Bipolar disorder: Status: Acute Code(s): F31.9 - Bipolar disorder, unspecified (2) Delirium: Status: Acute Code(s): R41.0 - Disorientation, unspecified (3) Parkinson disease: Status: Acute Code(s): G20 - Parkinson's disease Assessment and Plan: Elderly female with good social support with the history of Bipolar disorder, Parkinson's disease and admitted for acute changes on her mental status with psychotic symptoms, unable to take care of her ADL's and agitation. We have notice that the level of functioning of the patient is very low and she could be a good candidate for SNF. Plan: Keep same treatment. Refer to SNF. Regular blood work. Greater than 50% of the session was spent on counseling and/or coordination of care Reason for contiued inpatient stay Substantial Risk for: stable for discharge, rapid decompensation and med/psych decompensation
[2021-01-10 18:27] VITALS: BP 144/63; PULSE 89; RESP 16; TEMP 36.7; O2SAT 94
[2021-01-10] MEDS: OLANZapine 10 MG TABLET PO (20:03)
[2021-01-11 06:28] LABS: MANUAL DIFF FLAG NO
[2021-01-11] MEDS: Acetaminophen 325 MG TABLET 650 MG PO ×4 (06:28→20:40)
[2021-01-11] MEDS: Heparin Sodium,Porcine 5,000 UNIT/ML VIAL 5000 UNIT SUBCUT ×2 (06:29→17:12)
[2021-01-11] MEDS: Levothyroxine Sodium 75 MCG TABLET PO (06:29)
[2021-01-11 06:35] LABS: Basophils Percent Auto 0.3 % (0-2); Eosinophils Absolute Auto 0.2 X10*3/uL (0.0-0.4); Eosinophils Percent Auto 2.8 % (0-4); Hematocrit 27.4 % (37-47); Hemoglobin 8.5 g/dl (12.0-16.0); Imm Gran Abs Auto 0.11 X10*3/uL (0.00-0.03); Imm Gran Pct Auto 1.7 % (0.0-0.4); Lymphocytes Absolute Auto 1.6 X10*3/uL (1.2-4.9); Lymphocytes Percent Auto 24.8 % (20-40); Mean Corpuscular Volume 96.8 fL (80-98); Mean Platelet Volume 10.4 fL (9.4-12.3); Monocytes Absolute Auto 0.7 X10*3/uL (0.1-1.2); Monocytes Percent Auto 11.4 % (2-11); Neutrophils Absolute Auto 3.7 X10*3/uL (2.0-8.3); Platelet Count 189 X10*3/uL (160-400); Red Blood Count 2.83 X10*6/uL (4.20-5.50); Red Cell Distribution Width 13.9 % (11.0-16.0); White Blood Count 6.3 X10*3/uL (4.8-10.8)
[2021-01-11 07:14] LABS: Anion Gap 14 (12-20); Blood Urea Nitrogen 44 mg/dL (9-16); Calcium 9.4 mg/dL (8.4-10.2); Carbon Dioxide 24 mmol/L (22-29); Chloride 111 mmol/L (96-108); Creatinine Clr Calc Pharmacy 16.7; Estimated Glomerular Filt Rate 18; Glucose Random 86 mg/dL (60-115); Potassium 4.9 mmol/L (3.3-5.1); Sodium 144 mmol/L (135-145)
[2021-01-11 07:23] LABS: Valproate 45.2 mcg/mL (50.0-100.0)
[2021-01-11 08:07] VITALS: BP 147/65; PULSE 69; TEMP 36.7; O2SAT 95
[2021-01-11 08:27] VITALS: BP 147/65; PULSE 69
[2021-01-11] MEDS: amLODIPine Besylate 2.5 MG TABLET PO (08:27)
[2021-01-11] MEDS: Folic Acid 1 MG TABLET PO (08:27)
[2021-01-11] MEDS: Carbidopa/Levodopa 25/100 TABLET 1 TAB PO ×3 (08:27→20:41)
--- NOTE | 2021-01-11 12:12 | P.PNPSI_ITS ---
Subjective Subjective Date of Service: 01/11/21 Reason For Visit: Unspec Bipolar D/O Anxiety D/O Subjective Notes: Conditional Voluntary Interim History: Nursing staff reported the patient is mostly nonverbal with staff. Sometimes she is hungry but easily redirectable. Yesterday, her came and she was very animated speaking well. We have realized that the patient is total care at this point, saying she needs assistance on all ADLS. On interview, the patient denies new symptoms, she was minimally verbal. Medication Compliance: Yes Side effects from medications: No Attending Groups: Yes Review of Systems Acute medical concerns: No Medical Review of Systems: unchanged Mental Status Exam Mental Status Exam Patient Appearance: Well Grooomed (On hospital gowns) Patient Orientation: Person, Place, Time and Situation Level of Consciousness: Awake Patient Behavior: Dependent, Guarded and Suspicious Mood Description: Suspicious and Apprehensive Affect Description: Labile Patient Cognition Impaired: Yes Ability to Follow Directions: Fair Speech Pattern: Clear Hallucinations: None Delusions: Paranoid Ideation Thought Process: Illogical Thought Content: positive for Poverty of Content and positive for Preoccupation Judgement: Poor Diagnostics Vital Signs (24Hr): Vital Signs - 24 hr 01/10/21 18:27 01/11/21 08:07 01/11/21 08:27 Temperature 98.0 F 98.0 F Pulse Rate 89 69 69 Respiratory Rate 16 Blood Pressure 144/63 H 147/65 H 147/65 H Pulse Oximetry 94 95 Body Mass Index 26.4 Labs Results: 01/11/21 06:16 01/11/21 06:16 Labs: Laboratory Results - last 48 hr 01/11/21 01/11/21 06:16 06:16 WBC 6.3 RBC 2.83 L Hgb 8.5 L Hct 27.4 L MCV 96.8 MCH 30.0 MCHC 31.0 RDW 13.9 Plt Count 189 MPV 10.4 Immature Gran % (Auto) 1.7 H Neut % (Auto) 59.0 Lymph % (Auto) 24.8 [place] % (Auto) 11.4 H Eos % (Auto) 2.8 Baso % (Auto) 0.3 Lymph # (Auto) 1.6 [place] # (Auto) 0.7 Eos # (Auto) 0.2 Baso # (Auto) 0.0 Abs Immat Gran (auto) 0.11 H Absolute Neuts (auto) 3.7 Absolute Nucleated RBC 0.000 Nucleated RBC % (auto) 0.0 Sodium 144 Potassium 4.9 Chloride 111 H Carbon Dioxide 24 Anion Gap 14 BUN 44 H Creatinine 2.61 H Estim Creat Clear Calc 16.7 Estimated GFR 18 Random Glucose 86 Calcium 9.4 Valproic Acid 45.2 L Medications Medications Current Medications Generic Name Dose Route Start Last Admin Trade Name Freq PRN Reason Stop Dose Admin Acetaminophen 650 mg 01/04/21 09:00 01/11/21 09:57 Acetaminophen 325 Mg Tablet PO 650 mg Q6H ANSHUL Administration Al Hydroxide/Mg Hydroxide 30 ml 12/22/20 14:39 Magnesium Hydrox/Alum Hydrox 30 Ml Oral.Susp PO Q6H PRN Heartburn/Nausea Amlodipine Besylate 2.5 mg 12/23/20 09:00 01/11/21 08:27 Amlodipine Besylate 2.5 Mg Tablet PO 2.5 mg DAILY ANSHUL Administration Protocol Carbidopa/Levodopa 1 tab 12/22/20 21:00 01/11/21 08:27 Carbidopa/Levodopa 25/100 Tablet PO 1 tab TID ANSHUL Administration Folic Acid 1 mg 12/23/20 09:00 01/11/21 08:27 Folic Acid 1 Mg Tablet PO 1 mg DAILY ANSHUL Administration Heparin Sodium (Porcine) 5,000 unit 12/26/20 06:00 01/11/21 06:29 Heparin Sodium,Porcine 5,000 Unit/Ml Vial SUBCUT 5,000 unit Q12H ANSHUL Administration Hydroxyzine HCl 25 mg 12/22/20 14:39 12/25/20 20:34 Hydroxyzine Hcl 25 Mg Tablet PO 25 mg BEDTIME PRN Administration Anxiety Ibuprofen 600 mg 12/26/20 11:10 01/10/21 12:32 Ibuprofen 600 Mg Tablet PO 600 mg Q6H PRN Administration Pain, Moderate (Pain Scale 4-6 Levothyroxine Sodium 75 mcg 12/23/20 06:00 01/11/21 06:29 Levothyroxine Sodium 75 Mcg Tablet PO 75 mcg DAILY@0600 ANSHUL Administration Magnesium Hydroxide 30 ml 12/22/20 14:39 Milk Of Magnesia 30 Ml Oral.Susp PO DAILY PRN Constipation Medication 1 each 12/26/20 09:00 No Anticoagulant-Heparin Sq Ok MISCELLANE DAILY [facility] Olanzapine 10 mg 01/04/21 21:00 01/10/21 20:03 Olanzapine 10 Mg Tablet PO 10 mg BEDTIME ANSHUL Administration Trazodone HCl 50 mg 12/22/20 14:39 01/06/21 20:08 Trazodone Hcl 50 Mg Tablet PO 50 mg BEDTIME PRN Administration Insomnia Trolamine Salicylate/Aloe Vera 1 appl 01/03/21 21:00 01/11/21 09:49 Trolamine Salicylate 10%/Aloe Cream 35.4 Gm TOPICAL Not Given TID ANSHUL Valproic Acid 375 mg 12/26/20 15:00 01/11/21 08:28 Valproic Acid (As Sodium Salt) 250 Mg/5 Ml Solution PO 375 mg TID ANSHUL Administration Allergies Allergies Allergy/AdvReac Type Severity Reaction Status Date / Time thioridazine [From Mellaril] Allergy Unknown Unknown Verified 12/22/20 13:25 Assessment & Plan Assessment & Plan (1) Bipolar disorder: Status: Acute Code(s): F31.9 - Bipolar disorder, unspecified (2) Delirium: Status: Acute Code(s): R41.0 - Disorientation, unspecified (3) Parkinson disease: Status: Acute Code(s): G20 - Parkinson's disease Assessment and Plan: Elderly female with good social support with the history of Bipolar disorder, Parkinson's disease and admitted for acute changes on her mental status with psychotic symptoms, unable to take care of her ADL's and agitation. We have notice that the level of functioning of the patient is very low and she could be a good candidate for SNF. Plan: Keep same treatment. Refer to SNF. Regular blood work. Greater than 50% of the session was spent on counseling and/or coordination of care Reason for contiued inpatient stay Substantial Risk for: inability to function, rapid decompensation and med/psych decompensation
[2021-01-11 18:00] VITALS: BP 118/56; PULSE 80; RESP 16; TEMP 36.9; O2SAT 99
[2021-01-11] MEDS: OLANZapine 10 MG TABLET PO (20:41)
[2021-01-12] MEDS: Levothyroxine Sodium 75 MCG TABLET PO (06:00)
[2021-01-12] MEDS: Heparin Sodium,Porcine 5,000 UNIT/ML VIAL 5000 UNIT SUBCUT (06:17)
[2021-01-12 07:00] VITALS: BMI 26.7
[2021-01-12] MEDS: Carbidopa/Levodopa 25/100 TABLET 1 TAB PO ×3 (09:41→19:55)
[2021-01-12 09:42] VITALS: BP 118/62; PULSE 75
[2021-01-12] MEDS: Ibuprofen 600 MG TABLET PO (09:42)
[2021-01-12] MEDS: amLODIPine Besylate 2.5 MG TABLET PO (09:42)
[2021-01-12] MEDS: Folic Acid 1 MG TABLET PO (09:42)
[2021-01-12] MEDS: Acetaminophen 325 MG TABLET 650 MG PO ×3 (09:42→22:23)
--- NOTE | 2021-01-12 12:31 | P.PNPSI_ITS ---
Subjective Subjective Date of Service: 01/12/21 Reason For Visit: Unspec Bipolar D/O Anxiety D/O Subjective Notes: Conditional Voluntary Interim History: Nursing staff reported that the patient has been in his usual, resting in her bed most of the day. On interview the patient denies new symptoms she was selectively mute. Depakote level came back 45.5 and no major changes on BMP and CBC Mental Status Exam Mental Status Exam Patient Appearance: Well Grooomed Patient Orientation: Person Level of Consciousness: Awake Patient Behavior: Passive Mood Description: Blunted Affect Description: Constricted Patient Cognition Impaired: Yes Ability to Follow Directions: Fair Speech Pattern: Impoverished and Long Pauses Hallucinations: None Delusions: Not Present Thought Process: Slowed Thinking Thought Content: positive for Thought Blocking Judgement: Poor Diagnostics Vital Signs (24Hr): Vital Signs - 24 hr 01/11/21 18:00 01/12/21 09:42 Temperature 98.4 F Pulse Rate 80 75 Respiratory Rate 16 Blood Pressure 118/56 L 118/62 Pulse Oximetry 99 Body Mass Index 26.4 Labs Results: 01/11/21 06:16 01/11/21 06:16 Labs: Laboratory Results - last 48 hr 01/11/21 01/11/21 06:16 06:16 WBC 6.3 RBC 2.83 L Hgb 8.5 L Hct 27.4 L MCV 96.8 MCH 30.0 MCHC 31.0 RDW 13.9 Plt Count 189 MPV 10.4 Immature Gran % (Auto) 1.7 H Neut % (Auto) 59.0 Lymph % (Auto) 24.8 [place] % (Auto) 11.4 H Eos % (Auto) 2.8 Baso % (Auto) 0.3 Lymph # (Auto) 1.6 [place] # (Auto) 0.7 Eos # (Auto) 0.2 Baso # (Auto) 0.0 Abs Immat Gran (auto) 0.11 H Absolute Neuts (auto) 3.7 Absolute Nucleated RBC 0.000 Nucleated RBC % (auto) 0.0 Sodium 144 Potassium 4.9 Chloride 111 H Carbon Dioxide 24 Anion Gap 14 BUN 44 H Creatinine 2.61 H Estim Creat Clear Calc 16.7 Estimated GFR 18 Random Glucose 86 Calcium 9.4 Valproic Acid 45.2 L Medications Medications Current Medications Generic Name Dose Route Start Last Admin Trade Name Freq PRN Reason Stop Dose Admin Acetaminophen 650 mg 01/04/21 09:00 01/12/21 09:42 Acetaminophen 325 Mg Tablet PO 650 mg Q6H ANSHUL Administration Al Hydroxide/Mg Hydroxide 30 ml 12/22/20 14:39 Magnesium Hydrox/Alum Hydrox 30 Ml Oral.Susp PO Q6H PRN Heartburn/Nausea Amlodipine Besylate 2.5 mg 12/23/20 09:00 01/12/21 09:42 Amlodipine Besylate 2.5 Mg Tablet PO 2.5 mg DAILY ANSHUL Administration Protocol Carbidopa/Levodopa 1 tab 12/22/20 21:00 01/12/21 09:41 Carbidopa/Levodopa 25/100 Tablet PO 1 tab TID ANSHUL Administration Folic Acid 1 mg 12/23/20 09:00 01/12/21 09:42 Folic Acid 1 Mg Tablet PO 1 mg DAILY ANSHUL Administration Heparin Sodium (Porcine) 5,000 unit 12/26/20 06:00 01/12/21 06:17 Heparin Sodium,Porcine 5,000 Unit/Ml Vial SUBCUT 5,000 unit Q12H ANSHUL Administration Hydroxyzine HCl 25 mg 12/22/20 14:39 12/25/20 20:34 Hydroxyzine Hcl 25 Mg Tablet PO 25 mg BEDTIME PRN Administration Anxiety Ibuprofen 600 mg 12/26/20 11:10 01/12/21 09:42 Ibuprofen 600 Mg Tablet PO 600 mg Q6H PRN Administration Pain, Moderate (Pain Scale 4-6 Levothyroxine Sodium 75 mcg 12/23/20 06:00 01/12/21 06:00 Levothyroxine Sodium 75 Mcg Tablet PO 75 mcg DAILY@0600 [facility] Administration Magnesium Hydroxide 30 ml 12/22/20 14:39 Milk Of Magnesia 30 Ml Oral.Susp PO DAILY PRN Constipation Medication 1 each 12/26/20 09:00 No Anticoagulant-Heparin Sq Ok MISCELLANE DAILY [facility] Olanzapine 10 mg 01/04/21 21:00 01/11/21 20:41 Olanzapine 10 Mg Tablet PO 10 mg BEDTIME ANSHUL Administration Trazodone HCl 50 mg 12/22/20 14:39 01/06/21 20:08 Trazodone Hcl 50 Mg Tablet PO 50 mg BEDTIME PRN Administration Insomnia Trolamine Salicylate/Aloe Vera 1 appl 01/03/21 21:00 01/12/21 11:28 Trolamine Salicylate 10%/Aloe Cream 35.4 Gm TOPICAL Not Given TID [facility] Valproic Acid 375 mg 12/26/20 15:00 01/12/21 09:41 Valproic Acid (As Sodium Salt) 250 Mg/5 Ml Solution PO 375 mg TID ANSHUL Administration Allergies Allergies Allergy/AdvReac Type Severity Reaction Status Date / Time thioridazine [From Mellaril] Allergy Unknown Unknown Verified 12/22/20 13:25 Assessment & Plan Assessment & Plan (1) Bipolar disorder: Status: Acute Code(s): F31.9 - Bipolar disorder, unspecified (2) Delirium: Status: Acute Code(s): R41.0 - Disorientation, unspecified (3) Parkinson disease: Status: Acute Code(s): G20 - Parkinson's disease Assessment and Plan: Elderly female with good social support with the history of Bipolar disorder, Parkinson's disease and admitted for acute changes on her mental status with psychotic symptoms, unable to take care of her ADL's and agitation. We have notice that the level of functioning of the patient is very low and she could be a good candidate for SNF. Plan: Keep same treatment. Refer to SNF. Regular blood work. Family meeting next Saturday Greater than 50% of the session was spent on counseling and/or coordination of care Reason for contiued inpatient stay Substantial Risk for: inability to function, rapid decompensation and med/psych decompensation
[2021-01-12 18:00] VITALS: BP 109/55; PULSE 71; RESP 16; TEMP 36.4; O2SAT 98
[2021-01-12] MEDS: traZODone HCL 50 MG TABLET PO (19:54)
[2021-01-12] MEDS: OLANZapine 10 MG TABLET PO (19:55)
[2021-01-13] MEDS: Ibuprofen 600 MG TABLET PO ×2 (00:29→07:58)
[2021-01-13] MEDS: Levothyroxine Sodium 75 MCG TABLET PO (05:04)
[2021-01-13] MEDS: Acetaminophen 325 MG TABLET 650 MG PO ×3 (05:07→20:53)
[2021-01-13] MEDS: Carbidopa/Levodopa 25/100 TABLET 1 TAB PO ×3 (07:58→19:49)
[2021-01-13] MEDS: Folic Acid 1 MG TABLET PO (07:58)
[2021-01-13 08:42] VITALS: BP 131/62; PULSE 76; TEMP 36.7; O2SAT 98
[2021-01-13 09:42] VITALS: BP 131/62; PULSE 76
[2021-01-13] MEDS: amLODIPine Besylate 2.5 MG TABLET PO (09:42)
--- NOTE | 2021-01-13 11:09 | P.PNPSI_ITS ---
Subjective Subjective Date of Service: 01/13/21 Reason For Visit: Unspec Bipolar D/O Anxiety D/O Subjective Notes: Conditional Voluntary Interim History: Nursing staff has reported that the patient remains most of the time on her room. On interview, she was selectively mute. She complaints of pain and according to the checking department supervisor, we need to call the hospitalist for pain management. Review of Systems Acute medical concerns: No Medical Review of Systems: unchanged Mental Status Exam Mental Status Exam Patient Appearance: Well Grooomed Patient Orientation: Person Level of Consciousness: Awake Patient Behavior: Appropriate Mood Description: Constricted Affect Description: Constricted Patient Cognition Impaired: Yes Ability to Follow Directions: Good Speech Pattern: Appropriate Hallucinations: None Delusions: Paranoid Ideation Thought Process: Goal Oriented Thought Content: positive for Circumstantial Judgement: Fair Diagnostics Vital Signs (24Hr): Vital Signs - 24 hr 01/12/21 18:00 01/13/21 08:42 01/13/21 09:42 Temperature 97.5 F 98.0 F Pulse Rate 71 76 76 Respiratory Rate 16 Blood Pressure 109/55 L 131/62 131/62 Pulse Oximetry 98 98 Body Mass Index 26.7 Labs Results: 01/11/21 06:16 01/11/21 06:16 Medications Medications Current Medications Generic Name Dose Route Start Last Admin Trade Name Freq PRN Reason Stop Dose Admin Acetaminophen 650 mg 01/04/21 09:00 01/13/21 05:07 Acetaminophen 325 Mg Tablet PO 650 mg Q6H ANSHUL Administration Al Hydroxide/Mg Hydroxide 30 ml 12/22/20 14:39 Magnesium Hydrox/Alum Hydrox 30 Ml Oral.Susp PO Q6H PRN Heartburn/Nausea Amlodipine Besylate 2.5 mg 12/23/20 09:00 01/13/21 09:42 Amlodipine Besylate 2.5 Mg Tablet PO 2.5 mg DAILY ANSHUL Administration Protocol Carbidopa/Levodopa 1 tab 12/22/20 21:00 01/13/21 07:58 Carbidopa/Levodopa 25/100 Tablet PO 1 tab TID ANSHUL Administration Folic Acid 1 mg 12/23/20 09:00 01/13/21 07:58 Folic Acid 1 Mg Tablet PO 1 mg DAILY ANSHUL Administration Hydroxyzine HCl 25 mg 12/22/20 14:39 12/25/20 20:34 Hydroxyzine Hcl 25 Mg Tablet PO 25 mg BEDTIME PRN Administration Anxiety Ibuprofen 600 mg 12/26/20 11:10 01/13/21 07:58 Ibuprofen 600 Mg Tablet PO 600 mg Q6H PRN Administration Pain, Moderate (Pain Scale 4-6 Levothyroxine Sodium 75 mcg 12/23/20 06:00 01/13/21 05:04 Levothyroxine Sodium 75 Mcg Tablet PO 75 mcg DAILY@0600 ANSHUL Administration Magnesium Hydroxide 30 ml 12/22/20 14:39 Milk Of Magnesia 30 Ml Oral.Susp PO DAILY PRN Constipation Medication 1 each 12/26/20 09:00 No Anticoagulant-Heparin Sq Ok MISCELLANE DAILY ANSHUL Olanzapine 10 mg 01/04/21 21:00 01/12/21 19:55 Olanzapine 10 Mg Tablet PO 10 mg BEDTIME ANSHUL Administration Trazodone HCl 50 mg 12/22/20 14:39 01/12/21 19:54 Trazodone Hcl 50 Mg Tablet PO 50 mg BEDTIME PRN Administration Insomnia Trolamine Salicylate/Aloe Vera 1 appl 01/03/21 21:00 01/13/21 10:34 Trolamine Salicylate 10%/Aloe Cream 35.4 Gm TOPICAL Not Given TID ANSHUL Valproic Acid 375 mg 12/26/20 15:00 01/13/21 09:40 Valproic Acid (As Sodium Salt) 250 Mg/5 Ml Solution PO 375 mg TID ANSHUL Administration Allergies Allergies Allergy/AdvReac Type Severity Reaction Status Date / Time thioridazine [From Mellaril] Allergy Unknown Unknown Verified 12/22/20 13:25 Assessment & Plan Assessment & Plan (1) Bipolar disorder: Status: Acute Code(s): F31.9 - Bipolar disorder, unspecified (2) Delirium: Status: Acute Code(s): R41.0 - Disorientation, unspecified (3) Parkinson disease: Status: Acute Code(s): G20 - Parkinson's disease Assessment and Plan: Elderly female with good social support with the history of Bipolar disorder, Parkinson's disease and admitted for acute changes on her mental status with psychotic symptoms, unable to take care of her ADL's and agitation. We have notice that the level of functioning of the patient is very low and she could be a good candidate for SNF. Plan: Keep same treatment. Refer to SNF. Regular blood work. Family meeting next Saturday Hospitalist consult for chronic pain Greater than 50% of the session was spent on counseling and/or coordination of care Reason for contiued inpatient stay Substantial Risk for: inability to function, rapid decompensation and med/psych decompensation
[2021-01-13 18:00] VITALS: BP 119/57; PULSE 74; RESP 16; TEMP 36.8; O2SAT 96
[2021-01-13] MEDS: traZODone HCL 50 MG TABLET PO (19:49)
[2021-01-13] MEDS: OLANZapine 10 MG TABLET PO (19:49)
[2021-01-14] MEDS: Acetaminophen 325 MG TABLET 650 MG PO ×2 (03:17→20:20)
[2021-01-14] MEDS: Levothyroxine Sodium 75 MCG TABLET PO (04:55)
[2021-01-14 06:00] VITALS: BP 130/67; PULSE 76; RESP 14; TEMP 36.8; O2SAT 98
--- NOTE | 2021-01-14 06:46 | HO.PSYCHPN ---
Subjective Subjective Date of Service: 01/16/21 Reason For Visit: Unspec Bipolar D/O Anxiety D/O Interim History: Pt presents as irritable, dismissive. She quickly answer some questions but later asks this keno writer / runner to leave the room. She reports sleeping and eating well. She denies SI/HI. Per nursing, no behavioral concerns. Pt mostly in room. Medication Compliance: Yes Mental Status Exam Mental Status Exam Narrative: asleep in her bed. Patient Appearance: Well Grooomed Patient Orientation: Person Level of Consciousness: Awake Patient Behavior: Appropriate Mood Description: Constricted Affect Description: Constricted Patient Cognition Impaired: Yes Ability to Follow Directions: Good Speech Pattern: Appropriate Memory Description: Remote Impaired and Immediate Impaired Diagnostics Vital Signs (24Hr): Body Mass Index 26.7 Labs Results: 01/11/21 06:16 01/11/21 06:16 Medications Medications Current Medications Generic Name Dose Route Start Last Admin Trade Name Freq PRN Reason Stop Dose Admin Acetaminophen 650 mg 01/04/21 09:00 01/16/21 04:18 Acetaminophen 325 Mg Tablet PO Not Given Q6H ANSHUL Al Hydroxide/Mg Hydroxide 30 ml 12/22/20 14:39 Magnesium Hydrox/Alum Hydrox 30 Ml Oral.Susp PO Q6H PRN Heartburn/Nausea Amlodipine Besylate 2.5 mg 12/23/20 09:00 01/15/21 08:56 Amlodipine Besylate 2.5 Mg Tablet PO 2.5 mg DAILY ANSHUL Administration Protocol Carbidopa/Levodopa 1 tab 12/22/20 21:00 01/15/21 20:30 Carbidopa/Levodopa 25/100 Tablet PO 1 tab TID ANSHUL Administration Folic Acid 1 mg 12/23/20 09:00 01/15/21 08:56 Folic Acid 1 Mg Tablet PO 1 mg DAILY ANSHUL Administration Hydroxyzine HCl 25 mg 12/22/20 14:39 12/25/20 20:34 Hydroxyzine Hcl 25 Mg Tablet PO 25 mg BEDTIME PRN Administration Anxiety Ibuprofen 600 mg 12/26/20 11:10 01/15/21 06:16 Ibuprofen 600 Mg Tablet PO 600 mg Q6H PRN Administration Pain, Moderate (Pain Scale 4-6 Levothyroxine Sodium 75 mcg 12/23/20 06:00 01/16/21 06:12 Levothyroxine Sodium 75 Mcg Tablet PO 75 mcg DAILY@0600 ANSHUL Administration Magnesium Hydroxide 30 ml 12/22/20 14:39 Milk Of Magnesia 30 Ml Oral.Susp PO DAILY PRN Constipation Medication 1 each 12/26/20 09:00 No Anticoagulant-Heparin Sq Ok MISCELLANE DAILY ANSHUL Olanzapine 10 mg 01/04/21 21:00 01/15/21 20:30 Olanzapine 10 Mg Tablet PO 10 mg BEDTIME ANSHUL Administration Trazodone HCl 50 mg 12/22/20 14:39 01/13/21 19:49 Trazodone Hcl 50 Mg Tablet PO 50 mg BEDTIME PRN Administration Insomnia Trolamine Salicylate/Aloe Vera 1 appl 01/03/21 21:00 01/16/21 04:47 Trolamine Salicylate 10%/Aloe Cream 35.4 Gm TOPICAL Not Given TID ANSHUL Valproic Acid 375 mg 12/26/20 15:00 01/15/21 20:30 Valproic Acid (As Sodium Salt) 250 Mg/5 Ml Solution PO 375 mg TID ANSHUL Administration Allergies Allergies Allergy/AdvReac Type Severity Reaction Status Date / Time thioridazine [From Mellaril] Allergy Unknown Unknown Verified 12/22/20 13:25 Assessment & Plan Assessment & Plan (1) Bipolar disorder: Status: Acute Code(s): F31.9 - Bipolar disorder, unspecified (2) Delirium: Status: Acute Code(s): R41.0 - Disorientation, unspecified (3) Parkinson disease: Status: Acute Code(s): G20 - Parkinson's disease Assessment and Plan: Elderly female with good social support with the history of Bipolar disorder, Parkinson's disease and admitted for acute changes on her mental status with psychotic symptoms, unable to take care of her ADL's and agitation. We have notice that the level of functioning of the patient is very low and she could be a good candidate for SNF. Plan: Keep same treatment. Refer to SNF. Regular blood work. Family meeting next Saturday Hospitalist consult for chronic pain Greater than 50% of the session was spent on counseling and/or coordination of care Reason for contiued inpatient stay Substantial Risk for: inability to function
[2021-01-14 08:20] VITALS: BP 130/67; PULSE 76
[2021-01-14] MEDS: Folic Acid 1 MG TABLET PO (08:20)
[2021-01-14] MEDS: amLODIPine Besylate 2.5 MG TABLET PO (08:20)
[2021-01-14] MEDS: Carbidopa/Levodopa 25/100 TABLET 1 TAB PO ×2 (08:20→20:21)
[2021-01-14 18:00] VITALS: BP 129/63; PULSE 84; RESP 16; TEMP 36.6; O2SAT 95
[2021-01-14] MEDS: OLANZapine 10 MG TABLET PO (20:27)
[2021-01-14] MEDS: Ibuprofen 600 MG TABLET PO (21:37)
[2021-01-15 06:00] VITALS: BP 137/63; PULSE 68; TEMP 36.7; O2SAT 94
[2021-01-15] MEDS: Levothyroxine Sodium 75 MCG TABLET PO (06:10)
[2021-01-15] MEDS: Ibuprofen 600 MG TABLET PO (06:16)
--- NOTE | 2021-01-15 06:50 | P.PNPSI_ITS ---
Subjective Subjective Date of Service: 01/16/21 Reason For Visit: Unspec Bipolar D/O Anxiety D/O Interim History: Pt continues to present as irritable, dismissive. She quickly answer some questions but later asks this script writer to leave the room. She reports sleeping and eating well. She denies SI/HI. Per nursing, no behavioral concerns. Pt mostly in room. Medication Compliance: Yes Side effects from medications: No Attending Groups: No Mental Status Exam Mental Status Exam Narrative: asleep in her bed. Patient Appearance: Well Grooomed Patient Orientation: Person Level of Consciousness: Awake Patient Behavior: Appropriate Mood Description: Constricted Affect Description: Constricted Patient Cognition Impaired: Yes Ability to Follow Directions: Good Speech Pattern: Appropriate Memory Description: Remote Impaired and Immediate Impaired Diagnostics Vital Signs (24Hr): Body Mass Index 26.7 Labs Results: 01/11/21 06:16 01/11/21 06:16 Medications Medications Current Medications Generic Name Dose Route Start Last Admin Trade Name Freq PRN Reason Stop Dose Admin Acetaminophen 650 mg 01/04/21 09:00 01/16/21 04:18 Acetaminophen 325 Mg Tablet PO Not Given Q6H ANSHUL Al Hydroxide/Mg Hydroxide 30 ml 12/22/20 14:39 Magnesium Hydrox/Alum Hydrox 30 Ml Oral.Susp PO Q6H PRN Heartburn/Nausea Amlodipine Besylate 2.5 mg 12/23/20 09:00 01/15/21 08:56 Amlodipine Besylate 2.5 Mg Tablet PO 2.5 mg DAILY ANSHUL Administration Protocol Carbidopa/Levodopa 1 tab 12/22/20 21:00 01/15/21 20:30 Carbidopa/Levodopa 25/100 Tablet PO 1 tab TID ANSHUL Administration Folic Acid 1 mg 12/23/20 09:00 01/15/21 08:56 Folic Acid 1 Mg Tablet PO 1 mg DAILY ANSHUL Administration Hydroxyzine HCl 25 mg 12/22/20 14:39 12/25/20 20:34 Hydroxyzine Hcl 25 Mg Tablet PO 25 mg BEDTIME PRN Administration Anxiety Ibuprofen 600 mg 12/26/20 11:10 01/15/21 06:16 Ibuprofen 600 Mg Tablet PO 600 mg Q6H PRN Administration Pain, Moderate (Pain Scale 4-6 Levothyroxine Sodium 75 mcg 12/23/20 06:00 01/16/21 06:12 Levothyroxine Sodium 75 Mcg Tablet PO 75 mcg DAILY@0600 ANSHUL Administration Magnesium Hydroxide 30 ml 12/22/20 14:39 Milk Of Magnesia 30 Ml Oral.Susp PO DAILY PRN Constipation Medication 1 each 12/26/20 09:00 No Anticoagulant-Heparin Sq Ok MISCELLANE DAILY ANSHUL Olanzapine 10 mg 01/04/21 21:00 01/15/21 20:30 Olanzapine 10 Mg Tablet PO 10 mg BEDTIME ANSHUL Administration Trazodone HCl 50 mg 12/22/20 14:39 01/13/21 19:49 Trazodone Hcl 50 Mg Tablet PO 50 mg BEDTIME PRN Administration Insomnia Trolamine Salicylate/Aloe Vera 1 appl 01/03/21 21:00 01/16/21 04:47 Trolamine Salicylate 10%/Aloe Cream 35.4 Gm TOPICAL Not Given TID REPLACED BY [facility] Valproic Acid 375 mg 12/26/20 15:00 01/15/21 20:30 Valproic Acid (As Sodium Salt) 250 Mg/5 Ml Solution PO 375 mg TID ANSHUL Administration Allergies Allergies Allergy/AdvReac Type Severity Reaction Status Date / Time thioridazine [From Mellaril] Allergy Unknown Unknown Verified 12/22/20 13:25 Assessment & Plan Assessment & Plan (1) Bipolar disorder: Status: Acute Code(s): F31.9 - Bipolar disorder, unspecified (2) Delirium: Status: Acute Code(s): R41.0 - Disorientation, unspecified (3) Parkinson disease: Status: Acute Code(s): G20 - Parkinson's disease Assessment and Plan: Elderly female with good social support with the history of Bipolar disorder, Parkinson's disease and admitted for acute changes on her mental status with psychotic symptoms, unable to take care of her ADL's and agitation. We have notice that the level of functioning of the patient is very low and she could be a good candidate for SNF. Plan: Keep same treatment. Refer to SNF. Regular blood work. Family meeting next Saturday Hospitalist consult for chronic pain Greater than 50% of the session was spent on counseling and/or coordination of care Reason for contiued inpatient stay Substantial Risk for: inability to function
[2021-01-15] MEDS: Folic Acid 1 MG TABLET PO (08:56)
[2021-01-15] MEDS: Acetaminophen 325 MG TABLET 650 MG PO ×3 (08:56→20:29)
[2021-01-15] MEDS: amLODIPine Besylate 2.5 MG TABLET PO (08:56)
[2021-01-15] MEDS: Carbidopa/Levodopa 25/100 TABLET 1 TAB PO ×3 (08:56→20:30)
[2021-01-15] MEDS: OLANZapine 10 MG TABLET PO (20:30)
[2021-01-16 06:00] VITALS: BP 136/63; PULSE 72; RESP 16; TEMP 36.9; O2SAT 99
[2021-01-16] MEDS: Levothyroxine Sodium 75 MCG TABLET PO (06:12)
[2021-01-16] MEDS: Acetaminophen 325 MG TABLET 650 MG PO ×2 (09:48→21:18)
[2021-01-16] MEDS: Folic Acid 1 MG TABLET PO (09:48)
[2021-01-16 09:49] VITALS: BP 136/62; PULSE 72
[2021-01-16] MEDS: Carbidopa/Levodopa 25/100 TABLET 1 TAB PO ×3 (09:49→21:19)
[2021-01-16] MEDS: amLODIPine Besylate 2.5 MG TABLET PO (09:49)
--- NOTE | 2021-01-16 11:13 | HO.PSYCHPN ---
Subjective Subjective Date of Service: 01/16/21 Reason For Visit: Unspec Bipolar D/O Anxiety D/O Subjective Notes: Conditional Voluntary Interim History: The patient reminds selectively mute and irritable with certain staff. Nursing reported that she needed to be changed since she was incontinent of feces and urine last night. When interviewed the patient was selectively mute, she denies new symptoms. She is waiting for placement Review of Systems Acute medical concerns: No Medical Review of Systems: unchanged Mental Status Exam Mental Status Exam Patient Appearance: Well Grooomed Patient Orientation: Person Level of Consciousness: Awake (disengaged) Patient Behavior: Passive Mood Description: Withdrawn Affect Description: Constricted Patient Cognition Impaired: Yes Ability to Follow Directions: Good Speech Pattern: Impoverished (Selectively mute) Hallucinations: None Delusions: Paranoid Ideation Thought Content: positive for Tangential Judgement: Poor Diagnostics Vital Signs (24Hr): Vital Signs - 24 hr 01/16/21 06:00 01/16/21 09:49 Temperature 98.4 F Pulse Rate 72 72 Respiratory Rate 16 Blood Pressure 136/63 136/62 Pulse Oximetry 99 Body Mass Index 26.7 Labs Results: 01/11/21 06:16 01/11/21 06:16 Medications Medications Current Medications Generic Name Dose Route Start Last Admin Trade Name Freq PRN Reason Stop Dose Admin Acetaminophen 650 mg 01/04/21 09:00 01/16/21 09:48 Acetaminophen 325 Mg Tablet PO 650 mg Q6H ANSHUL Administration Al Hydroxide/Mg Hydroxide 30 ml 12/22/20 14:39 Magnesium Hydrox/Alum Hydrox 30 Ml Oral.Susp PO Q6H PRN Heartburn/Nausea Amlodipine Besylate 2.5 mg 12/23/20 09:00 01/16/21 09:49 Amlodipine Besylate 2.5 Mg Tablet PO 2.5 mg DAILY ANSHUL Administration Protocol Carbidopa/Levodopa 1 tab 12/22/20 21:00 01/16/21 09:49 Carbidopa/Levodopa 25/100 Tablet PO 1 tab TID ANSHUL Administration Folic Acid 1 mg 12/23/20 09:00 01/16/21 09:48 Folic Acid 1 Mg Tablet PO 1 mg DAILY ANSHUL Administration Hydroxyzine HCl 25 mg 12/22/20 14:39 12/25/20 20:34 Hydroxyzine Hcl 25 Mg Tablet PO 25 mg BEDTIME PRN Administration Anxiety Ibuprofen 600 mg 12/26/20 11:10 01/15/21 06:16 Ibuprofen 600 Mg Tablet PO 600 mg Q6H PRN Administration Pain, Moderate (Pain Scale 4-6 Levothyroxine Sodium 75 mcg 12/23/20 06:00 01/16/21 06:12 Levothyroxine Sodium 75 Mcg Tablet PO 75 mcg DAILY@0600 ANSHUL Administration Magnesium Hydroxide 30 ml 12/22/20 14:39 Milk Of Magnesia 30 Ml Oral.Susp PO DAILY PRN Constipation Medication 1 each 12/26/20 09:00 No Anticoagulant-Heparin Sq Ok MISCELLANE DAILY ANSHUL Olanzapine 10 mg 01/04/21 21:00 01/15/21 20:30 Olanzapine 10 Mg Tablet PO 10 mg BEDTIME ANSHUL Administration Trazodone HCl 50 mg 12/22/20 14:39 01/13/21 19:49 Trazodone Hcl 50 Mg Tablet PO 50 mg BEDTIME PRN Administration Insomnia Trolamine Salicylate/Aloe Vera 1 appl 01/03/21 21:00 01/16/21 10:12 Trolamine Salicylate 10%/Aloe Cream 35.4 Gm TOPICAL Not Given TID ANSHUL Valproic Acid 375 mg 12/26/20 15:00 01/16/21 09:47 Valproic Acid (As Sodium Salt) 250 Mg/5 Ml Solution PO 375 mg TID ANSHUL Administration Allergies Allergies Allergy/AdvReac Type Severity Reaction Status Date / Time thioridazine [From Mellaril] Allergy Unknown Unknown Verified 12/22/20 13:25 Assessment & Plan Assessment & Plan (1) Bipolar disorder: Status: Acute Code(s): F31.9 - Bipolar disorder, unspecified (2) Delirium: Status: Acute Code(s): R41.0 - Disorientation, unspecified (3) Parkinson disease: Status: Acute Code(s): G20 - Parkinson's disease Assessment and Plan: Elderly female with good social support with the history of Bipolar disorder, Parkinson's disease and admitted for acute changes on her mental status with psychotic symptoms, unable to take care of her ADL's and agitation. We have notice that the level of functioning of the patient is very low and she could be a good candidate for SNF. Plan: Keep same treatment. Refer to SNF. Regular blood work. Family meeting next Saturday Hospitalist consult for chronic pain Greater than 50% of the session was spent on counseling and/or coordination of care Reason for contiued inpatient stay Substantial Risk for: inability to function, rapid decompensation and med/psych decompensation
[2021-01-16 18:00] VITALS: BP 119/52; PULSE 83; RESP 17; TEMP 37; O2SAT 98
[2021-01-16] MEDS: OLANZapine 10 MG TABLET PO (21:19)
[2021-01-17] MEDS: Levothyroxine Sodium 75 MCG TABLET PO (05:32)
[2021-01-17 05:47] VITALS: BP 115/61; PULSE 77; RESP 16; TEMP 36.6; O2SAT 96
[2021-01-17 09:44] VITALS: BP 122/59; PULSE 86; RESP 16; TEMP 36.9; O2SAT 99
[2021-01-17 09:48] VITALS: BP 122/59; PULSE 86
[2021-01-17] MEDS: Acetaminophen 325 MG TABLET 650 MG PO ×3 (09:48→19:49)
[2021-01-17] MEDS: amLODIPine Besylate 2.5 MG TABLET PO (09:48)
[2021-01-17] MEDS: Folic Acid 1 MG TABLET PO (09:48)
[2021-01-17] MEDS: Carbidopa/Levodopa 25/100 TABLET 1 TAB PO ×3 (09:49→19:49)
--- NOTE | 2021-01-17 14:35 | HO.PSYCHPN ---
Subjective Subjective Date of Service: 01/17/21 Reason For Visit: Unspec Bipolar D/O Anxiety D/O Interim History: Nursing staff reported that the patient is more pleasant with the staff. She has attended 1 group and she looks less confused. Mental Status Exam Mental Status Exam Patient Appearance: Well Grooomed Patient Orientation: Person Level of Consciousness: Awake Patient Behavior: Appropriate and Asleep Mood Description: Constricted Affect Description: Labile Patient Cognition Impaired: Yes Ability to Follow Directions: Fair Speech Pattern: Clear Hallucinations: None Delusions: Paranoid Ideation Thought Process: Slowed Thinking Thought Content: positive for Loose Associations Judgement: Fair Diagnostics Vital Signs (24Hr): Vital Signs - 24 hr 01/16/21 18:00 01/17/21 05:47 01/17/21 09:44 Temperature 98.6 F 97.9 F 98.4 F Pulse Rate 83 77 86 Respiratory Rate 17 16 16 Blood Pressure 119/52 L 115/61 122/59 L Pulse Oximetry 98 96 99 01/17/21 09:48 Temperature Pulse Rate 86 Respiratory Rate Blood Pressure 122/59 L Pulse Oximetry Body Mass Index 26.7 Labs Results: 01/11/21 06:16 01/11/21 06:16 Medications Medications Current Medications Generic Name Dose Route Start Last Admin Trade Name Freq PRN Reason Stop Dose Admin Acetaminophen 650 mg 01/04/21 09:00 01/17/21 09:48 Acetaminophen 325 Mg Tablet PO 650 mg Q6H ANSHUL Administration Al Hydroxide/Mg Hydroxide 30 ml 12/22/20 14:39 Magnesium Hydrox/Alum Hydrox 30 Ml Oral.Susp PO Q6H PRN Heartburn/Nausea Amlodipine Besylate 2.5 mg 12/23/20 09:00 01/17/21 09:48 Amlodipine Besylate 2.5 Mg Tablet PO 2.5 mg DAILY ANSHUL Administration Protocol Carbidopa/Levodopa 1 tab 12/22/20 21:00 01/17/21 09:49 Carbidopa/Levodopa 25/100 Tablet PO 1 tab TID ANSHUL Administration Folic Acid 1 mg 12/23/20 09:00 01/17/21 09:48 Folic Acid 1 Mg Tablet PO 1 mg DAILY ANSHUL Administration Hydroxyzine HCl 25 mg 12/22/20 14:39 12/25/20 20:34 Hydroxyzine Hcl 25 Mg Tablet PO 25 mg BEDTIME PRN Administration Anxiety Ibuprofen 600 mg 12/26/20 11:10 01/15/21 06:16 Ibuprofen 600 Mg Tablet PO 600 mg Q6H PRN Administration Pain, Moderate (Pain Scale 4-6 Levothyroxine Sodium 75 mcg 12/23/20 06:00 01/17/21 05:32 Levothyroxine Sodium 75 Mcg Tablet PO 75 mcg DAILY@0600 ANSHUL Administration Magnesium Hydroxide 30 ml 12/22/20 14:39 Milk Of Magnesia 30 Ml Oral.Susp PO DAILY PRN Constipation Medication 1 each 12/26/20 09:00 No Anticoagulant-Heparin Sq Ok MISCELLANE DAILY ANSHUL Olanzapine 10 mg 01/04/21 21:00 01/16/21 21:19 Olanzapine 10 Mg Tablet PO 10 mg BEDTIME ANSHUL Administration Trazodone HCl 50 mg 12/22/20 14:39 01/13/21 19:49 Trazodone Hcl 50 Mg Tablet PO 50 mg BEDTIME PRN Administration Insomnia Trolamine Salicylate/Aloe Vera 1 appl 01/03/21 21:00 01/17/21 12:56 Trolamine Salicylate 10%/Aloe Cream 35.4 Gm TOPICAL Not Given TID ANSHUL Valproic Acid 375 mg 12/26/20 15:00 01/17/21 09:47 Valproic Acid (As Sodium Salt) 250 Mg/5 Ml Solution PO 375 mg TID ANSHUL Administration Allergies Allergies Allergy/AdvReac Type Severity Reaction Status Date / Time thioridazine [From Mellaril] Allergy Unknown Unknown Verified 12/22/20 13:25 Assessment & Plan Assessment & Plan (1) Bipolar disorder: Status: Acute Code(s): F31.9 - Bipolar disorder, unspecified (2) Delirium: Status: Acute Code(s): R41.0 - Disorientation, unspecified (3) Parkinson disease: Status: Acute Code(s): G20 - Parkinson's disease Assessment and Plan: Elderly female with good social support with the history of Bipolar disorder, Parkinson's disease and admitted for acute changes on her mental status with psychotic symptoms, unable to take care of her ADL's and agitation. We have notice that the level of functioning of the patient is very low and she could be a good candidate for SNF. Plan: Keep same treatment. Refer to SNF. Regular blood work. Family meeting next . Greater than 50% of the session was spent on counseling and/or coordination of care Reason for contiued inpatient stay Substantial Risk for: inability to function, rapid decompensation and med/psych decompensation
[2021-01-17 18:00] VITALS: BP 117/61; PULSE 97; TEMP 36.3; O2SAT 97
[2021-01-17] MEDS: OLANZapine 10 MG TABLET PO (19:50)
[2021-01-18] MEDS: Acetaminophen 325 MG TABLET 650 MG PO ×4 (03:07→20:53)
[2021-01-18] MEDS: Levothyroxine Sodium 75 MCG TABLET PO (05:33)
[2021-01-18 06:00] VITALS: BP 118/59; PULSE 82; RESP 16; TEMP 36.8; O2SAT 98
[2021-01-18] MEDS: Carbidopa/Levodopa 25/100 TABLET 1 TAB PO ×3 (09:05→20:53)
[2021-01-18] MEDS: Folic Acid 1 MG TABLET PO (09:05)
[2021-01-18 09:06] VITALS: BP 118/59; PULSE 82
[2021-01-18] MEDS: amLODIPine Besylate 2.5 MG TABLET PO (09:06)
--- NOTE | 2021-01-18 12:05 | HO.PSYCHPN ---
Subjective Subjective Date of Service: 01/18/21 Reason For Visit: Unspec Bipolar D/O Anxiety D/O Interim History: Nursing staff has reported that the patient is more pleasant, yesterday she went out for a walk with the staff and the staff has noticed that sometimes she is selectively mute. When she is with her she is alert and oriented, cooperative Review of Systems Acute medical concerns: No Medical Review of Systems: unchanged Mental Status Exam Mental Status Exam Patient Appearance: Well Grooomed Patient Orientation: Person Level of Consciousness: Awake Patient Behavior: Appropriate Mood Description: Calm Affect Description: Calm Patient Cognition Impaired: Yes Ability to Follow Directions: Good Speech Pattern: Clear Memory Description: Intact Hallucinations: None Delusions: Not Present Thought Process: Distracted Thought Content: positive for Poverty of Content Judgement: Fair Diagnostics Vital Signs (24Hr): Vital Signs - 24 hr 01/17/21 18:00 01/18/21 06:00 01/18/21 09:06 Temperature 97.3 F 98.2 F Pulse Rate 97 82 82 Respiratory Rate 16 Blood Pressure 117/61 118/59 L 118/59 L Pulse Oximetry 97 98 Body Mass Index 26.7 Labs Results: 01/11/21 06:16 01/11/21 06:16 Medications Medications Current Medications Generic Name Dose Route Start Last Admin Trade Name Freq PRN Reason Stop Dose Admin Acetaminophen 650 mg 01/04/21 09:00 01/18/21 10:02 Acetaminophen 325 Mg Tablet PO 650 mg Q6H ANSHUL Administration Al Hydroxide/Mg Hydroxide 30 ml 12/22/20 14:39 Magnesium Hydrox/Alum Hydrox 30 Ml Oral.Susp PO Q6H PRN Heartburn/Nausea Amlodipine Besylate 2.5 mg 12/23/20 09:00 01/18/21 09:06 Amlodipine Besylate 2.5 Mg Tablet PO 2.5 mg DAILY ANSHUL Administration Protocol Carbidopa/Levodopa 1 tab 12/22/20 21:00 01/18/21 09:05 Carbidopa/Levodopa 25/100 Tablet PO 1 tab TID ANSHUL Administration Folic Acid 1 mg 12/23/20 09:00 01/18/21 09:05 Folic Acid 1 Mg Tablet PO 1 mg DAILY ANSHUL Administration Hydroxyzine HCl 25 mg 12/22/20 14:39 12/25/20 20:34 Hydroxyzine Hcl 25 Mg Tablet PO 25 mg BEDTIME PRN Administration Anxiety Ibuprofen 600 mg 12/26/20 11:10 01/15/21 06:16 Ibuprofen 600 Mg Tablet PO 600 mg Q6H PRN Administration Pain, Moderate (Pain Scale 4-6 Levothyroxine Sodium 75 mcg 12/23/20 06:00 01/18/21 05:33 Levothyroxine Sodium 75 Mcg Tablet PO 75 mcg DAILY@0600 ANSHUL Administration Magnesium Hydroxide 30 ml 12/22/20 14:39 Milk Of Magnesia 30 Ml Oral.Susp PO DAILY PRN Constipation Medication 1 each 12/26/20 09:00 No Anticoagulant-Heparin Sq Ok MISCELLANE DAILY ANSHUL Olanzapine 10 mg 01/04/21 21:00 01/17/21 19:50 Olanzapine 10 Mg Tablet PO 10 mg BEDTIME ANSHUL Administration Trazodone HCl 50 mg 12/22/20 14:39 01/13/21 19:49 Trazodone Hcl 50 Mg Tablet PO 50 mg BEDTIME PRN Administration Insomnia Trolamine Salicylate/Aloe Vera 1 appl 01/03/21 21:00 01/18/21 09:22 Trolamine Salicylate 10%/Aloe Cream 35.4 Gm TOPICAL Not Given TID ANSHUL Valproic Acid 375 mg 12/26/20 15:00 01/18/21 09:06 Valproic Acid (As Sodium Salt) 250 Mg/5 Ml Solution PO 375 mg TID ANSHUL Administration Allergies Allergies Allergy/AdvReac Type Severity Reaction Status Date / Time thioridazine [From Mellaril] Allergy Unknown Unknown Verified 12/22/20 13:25 Assessment & Plan Assessment & Plan (1) Bipolar disorder: Status: Acute Code(s): F31.9 - Bipolar disorder, unspecified (2) Delirium: Status: Acute Code(s): R41.0 - Disorientation, unspecified (3) Parkinson disease: Status: Acute Code(s): G20 - Parkinson's disease Assessment and Plan: Elderly female with good social support with the history of Bipolar disorder, Parkinson's disease and admitted for acute changes on her mental status with psychotic symptoms, unable to take care of her ADL's and agitation. We have notice that the level of functioning of the patient is very low and she could be a good candidate for SNF. Plan: Keep same treatment. Refer to SNF. Regular blood work. Family meeting next . Greater than 50% of the session was spent on counseling and/or coordination of care Reason for contiued inpatient stay Substantial Risk for: inability to function, rapid decompensation and med/psych decompensation
[2021-01-18 17:57] VITALS: BP 121/56; PULSE 94; RESP 18; TEMP 36.1; O2SAT 98
[2021-01-18] MEDS: OLANZapine 10 MG TABLET PO (20:53)
[2021-01-19] MEDS: Acetaminophen 325 MG TABLET 650 MG PO ×4 (03:40→21:31)
[2021-01-19 06:00] VITALS: BP 123/60; PULSE 73; TEMP 36.6; O2SAT 97
[2021-01-19] MEDS: Levothyroxine Sodium 75 MCG TABLET PO (06:20)
[2021-01-19 07:00] VITALS: BMI 26.8
[2021-01-19 09:09] VITALS: BP 123/60; PULSE 73
[2021-01-19] MEDS: Folic Acid 1 MG TABLET PO (09:09)
[2021-01-19] MEDS: Carbidopa/Levodopa 25/100 TABLET 1 TAB PO ×3 (09:09→21:31)
[2021-01-19] MEDS: amLODIPine Besylate 2.5 MG TABLET PO (09:09)
--- NOTE | 2021-01-19 11:42 | HO.PSYCHPN ---
Subjective Subjective Date of Service: 01/19/21 Reason For Visit: Unspec Bipolar D/O Anxiety D/O Interim History: Nursing staff has reported that the patient is not soaring anymore, she is cooperative with care. She is selectively mute with some staff. We have discussed with the team the possibility to discharge her to short-term rehab. On interview, the patient reports that she is okay no new symptoms Review of Systems Acute medical concerns: No Medical Review of Systems: unchanged Mental Status Exam Mental Status Exam Patient Appearance: Unkempt Patient Orientation: Person Level of Consciousness: Awake Patient Behavior: Guarded, Passive and Suspicious Mood Description: Blunted Affect Description: Constricted Patient Cognition Impaired: Yes Ability to Follow Directions: Good Speech Pattern: Clear Hallucinations: None Delusions: Not Present Thought Content: positive for Circumstantial Judgement: Fair Diagnostics Vital Signs (24Hr): Vital Signs - 24 hr 01/18/21 17:57 01/19/21 06:00 01/19/21 09:09 Temperature 97 F 97.8 F Pulse Rate 94 73 73 Respiratory Rate 18 Blood Pressure 121/56 L 123/60 123/60 Pulse Oximetry 98 97 Body Mass Index 26.8 Labs Results: 01/11/21 06:16 01/11/21 06:16 Medications Medications Current Medications Generic Name Dose Route Start Last Admin Trade Name Freq PRN Reason Stop Dose Admin Acetaminophen 650 mg 01/04/21 09:00 01/19/21 09:08 Acetaminophen 325 Mg Tablet PO 650 mg Q6H ANSHUL Administration Al Hydroxide/Mg Hydroxide 30 ml 12/22/20 14:39 Magnesium Hydrox/Alum Hydrox 30 Ml Oral.Susp PO Q6H PRN Heartburn/Nausea Amlodipine Besylate 2.5 mg 12/23/20 09:00 01/19/21 09:09 Amlodipine Besylate 2.5 Mg Tablet PO 2.5 mg DAILY ANSHUL Administration Protocol Carbidopa/Levodopa 1 tab 12/22/20 21:00 01/19/21 09:09 Carbidopa/Levodopa 25/100 Tablet PO 1 tab TID ANSHUL Administration Folic Acid 1 mg 12/23/20 09:00 01/19/21 09:09 Folic Acid 1 Mg Tablet PO 1 mg DAILY ANSHUL Administration Hydroxyzine HCl 25 mg 12/22/20 14:39 12/25/20 20:34 Hydroxyzine Hcl 25 Mg Tablet PO 25 mg BEDTIME PRN Administration Anxiety Ibuprofen 600 mg 12/26/20 11:10 01/15/21 06:16 Ibuprofen 600 Mg Tablet PO 600 mg Q6H PRN Administration Pain, Moderate (Pain Scale 4-6 Levothyroxine Sodium 75 mcg 12/23/20 06:00 01/19/21 06:20 Levothyroxine Sodium 75 Mcg Tablet PO 75 mcg DAILY@0600 ANSHUL Administration Magnesium Hydroxide 30 ml 12/22/20 14:39 Milk Of Magnesia 30 Ml Oral.Susp PO DAILY PRN Constipation Medication 1 each 12/26/20 09:00 No Anticoagulant-Heparin Sq Ok MISCELLANE DAILY ANSHUL Olanzapine 10 mg 01/04/21 21:00 01/18/21 20:53 Olanzapine 10 Mg Tablet PO 10 mg BEDTIME ANSHUL Administration Trazodone HCl 50 mg 12/22/20 14:39 01/13/21 19:49 Trazodone Hcl 50 Mg Tablet PO 50 mg BEDTIME PRN Administration Insomnia Trolamine Salicylate/Aloe Vera 1 appl 01/03/21 21:00 01/19/21 09:13 Trolamine Salicylate 10%/Aloe Cream 35.4 Gm TOPICAL Not Given TID ANSHUL Valproic Acid 375 mg 12/26/20 15:00 01/19/21 09:11 Valproic Acid (As Sodium Salt) 250 Mg/5 Ml Solution PO 375 mg TID ANSHUL Administration Allergies Allergies Allergy/AdvReac Type Severity Reaction Status Date / Time thioridazine [From Mellaril] Allergy Unknown Unknown Verified 12/22/20 13:25 Assessment & Plan Assessment & Plan (1) Bipolar disorder: Status: Acute Code(s): F31.9 - Bipolar disorder, unspecified (2) Delirium: Status: Acute Code(s): R41.0 - Disorientation, unspecified (3) Parkinson disease: Status: Acute Code(s): G20 - Parkinson's disease Assessment and Plan: Elderly female with good social support with the history of Bipolar disorder, Parkinson's disease and admitted for acute changes on her mental status with psychotic symptoms, unable to take care of her ADL's and agitation. We have notice that the level of functioning of the patient is very low and she could be a good candidate for SNF. Plan: Keep same treatment. Refer to SNF. Regular blood work. Family meeting today at 01:30 PT consult to assess short-term rehab Greater than 50% of the session was spent on counseling and/or coordination of care Reason for contiued inpatient stay Substantial Risk for: inability to function, rapid decompensation and med/psych decompensation
[2021-01-19 13:47] VITALS: BP 123/60; PULSE 73
[2021-01-19 18:43] VITALS: BP 133/64; PULSE 90; RESP 16; TEMP 36.6; O2SAT 97
[2021-01-19] MEDS: OLANZapine 10 MG TABLET PO (21:31)
[2021-01-20] MEDS: Ibuprofen 600 MG TABLET PO ×2 (01:20→21:28)
[2021-01-20] MEDS: Acetaminophen 325 MG TABLET 650 MG PO ×3 (02:07→20:04)
[2021-01-20] MEDS: Levothyroxine Sodium 75 MCG TABLET PO (05:21)
[2021-01-20 08:00] VITALS: BP 109/54; PULSE 79; TEMP 36.8; O2SAT 96
[2021-01-20] MEDS: Folic Acid 1 MG TABLET PO (08:06)
[2021-01-20] MEDS: Carbidopa/Levodopa 25/100 TABLET 1 TAB PO ×3 (08:07→20:03)
[2021-01-20] MEDS: amLODIPine Besylate 2.5 MG TABLET PO (08:07)
--- NOTE | 2021-01-20 15:05 | P.PNPSI_ITS ---
Subjective Subjective Date of Service: 01/20/21 Reason For Visit: Unspec Bipolar D/O Anxiety D/O Interim History: Nursing staff reported that the patient be and to cover herself yesterday. The geriatric social worker reported that most likely she will go to subacute rehab and on the family meeting of yesterday, although possible discharge plans were discussed. On interview the patient denies new symptoms and she is okay Review of Systems Acute medical concerns: No Medical Review of Systems: unchanged Mental Status Exam Mental Status Exam Patient Appearance: Well Grooomed Patient Orientation: Person Level of Consciousness: Awake Patient Behavior: Appropriate and Guarded Mood Description: Constricted Affect Description: Constricted Patient Cognition Impaired: Yes Ability to Follow Directions: Good Speech Pattern: Clear Hallucinations: None Delusions: Not Present Thought Process: Linear Thought Content: positive for [place] Judgement: Fair Diagnostics Vital Signs (24Hr): Vital Signs - 24 hr 01/19/21 18:43 01/20/21 08:00 Temperature 97.8 F 98.3 F Pulse Rate 90 79 Respiratory Rate 16 Blood Pressure 133/64 109/54 L Pulse Oximetry 97 96 Body Mass Index 26.8 Labs Results: 01/11/21 06:16 01/11/21 06:16 Medications Medications Current Medications Generic Name Dose Route Start Last Admin Trade Name Freq PRN Reason Stop Dose Admin Acetaminophen 650 mg 01/04/21 09:00 01/20/21 14:56 Acetaminophen 325 Mg Tablet PO 650 mg Q6H ANSHUL Administration Al Hydroxide/Mg Hydroxide 30 ml 12/22/20 14:39 Magnesium Hydrox/Alum Hydrox 30 Ml Oral.Susp PO Q6H PRN Heartburn/Nausea Amlodipine Besylate 2.5 mg 12/23/20 09:00 01/20/21 08:07 Amlodipine Besylate 2.5 Mg Tablet PO 2.5 mg DAILY ANSHUL Administration Protocol Carbidopa/Levodopa 1 tab 12/22/20 21:00 01/20/21 14:56 Carbidopa/Levodopa 25/100 Tablet PO 1 tab TID ANSHUL Administration Folic Acid 1 mg 12/23/20 09:00 01/20/21 08:06 Folic Acid 1 Mg Tablet PO 1 mg DAILY ANSHUL Administration Hydroxyzine HCl 25 mg 12/22/20 14:39 12/25/20 20:34 Hydroxyzine Hcl 25 Mg Tablet PO 25 mg BEDTIME PRN Administration Anxiety Ibuprofen 600 mg 12/26/20 11:10 01/20/21 01:20 Ibuprofen 600 Mg Tablet PO 600 mg Q6H PRN Administration Pain, Moderate (Pain Scale 4-6 Levothyroxine Sodium 75 mcg 12/23/20 06:00 01/20/21 05:21 Levothyroxine Sodium 75 Mcg Tablet PO 75 mcg DAILY@0600 ANSHUL Administration Magnesium Hydroxide 30 ml 12/22/20 14:39 Milk Of Magnesia 30 Ml Oral.Susp PO DAILY PRN Constipation Medication 1 each 12/26/20 09:00 No Anticoagulant-Heparin Sq Ok MISCELLANE DAILY ANSHUL Olanzapine 10 mg 01/04/21 21:00 01/19/21 21:31 Olanzapine 10 Mg Tablet PO 10 mg BEDTIME ANSHUL Administration Trazodone HCl 50 mg 12/22/20 14:39 01/13/21 19:49 Trazodone Hcl 50 Mg Tablet PO 50 mg BEDTIME PRN Administration Insomnia Trolamine Salicylate/Aloe Vera 1 appl 01/03/21 21:00 01/20/21 15:03 Trolamine Salicylate 10%/Aloe Cream 35.4 Gm TOPICAL Not Given TID ANSHUL Valproic Acid 375 mg 12/26/20 15:00 01/20/21 14:55 Valproic Acid (As Sodium Salt) 250 Mg/5 Ml Solution PO 375 mg TID ANSHUL Administration Allergies Allergies Allergy/AdvReac Type Severity Reaction Status Date / Time thioridazine [From Mellaril] Allergy Unknown Unknown Verified 12/22/20 13:25 Assessment & Plan Assessment & Plan (1) Bipolar disorder: Status: Acute Code(s): F31.9 - Bipolar disorder, unspecified (2) Delirium: Status: Acute Code(s): R41.0 - Disorientation, unspecified (3) Parkinson disease: Status: Acute Code(s): G20 - Parkinson's disease Assessment and Plan: Elderly female with good social support with the history of Bipolar disorder, Parkinson's disease and admitted for acute changes on her mental status with psychotic symptoms, unable to take care of her ADL's and agitation. We have notice that the level of functioning of the patient is very low and she could be a good candidate for SNF. Plan: Keep same treatment. Refer to SNF. Regular blood work. Family meeting today at 01:30 PT consult to assess short-term rehab Greater than 50% of the session was spent on counseling and/or coordination of care Reason for contiued inpatient stay Substantial Risk for: inability to function, rapid decompensation and med/psych decompensation
[2021-01-20 18:00] VITALS: BP 114/58; PULSE 84; TEMP 36.8; O2SAT 98
[2021-01-20] MEDS: OLANZapine 10 MG TABLET PO (20:03)
[2021-01-21] MEDS: Acetaminophen 325 MG TABLET 650 MG PO ×4 (02:49→22:32)
[2021-01-21] MEDS: Ibuprofen 600 MG TABLET PO ×2 (03:54→09:55)
[2021-01-21] MEDS: Levothyroxine Sodium 75 MCG TABLET PO (05:55)
[2021-01-21] MEDS: amLODIPine Besylate 2.5 MG TABLET PO (08:21)
[2021-01-21] MEDS: Carbidopa/Levodopa 25/100 TABLET 1 TAB PO ×3 (08:21→22:31)
[2021-01-21] MEDS: Folic Acid 1 MG TABLET PO (08:22)
[2021-01-21 08:30] VITALS: BP 137/63; PULSE 72; RESP 16; TEMP 37.2; O2SAT 96
[2021-01-21 20:30] VITALS: BP 126/62; PULSE 80; RESP 16; TEMP 36.7; O2SAT 97
[2021-01-21] MEDS: OLANZapine 10 MG TABLET PO (22:33)
--- NOTE | 2021-01-21 23:09 | HO.PSYCHPN ---
Subjective Subjective Date of Service: 01/21/21 Reason For Visit: Unspec Bipolar D/O Anxiety D/O Interim History: Patient has been flat dysphoric pacing Mental Status Exam Mental Status Exam Narrative: asleep in her bed. Patient Appearance: Well Grooomed Patient Orientation: Person Level of Consciousness: Awake Patient Behavior: Appropriate and Guarded Mood Description: Constricted Affect Description: Constricted Patient Cognition Impaired: Yes Ability to Follow Directions: Good Speech Pattern: Clear Memory Description: Intact Diagnostics Vital Signs (24Hr): Vital Signs - 24 hr 01/21/21 08:30 Temperature 98.9 F Pulse Rate 72 Respiratory Rate 16 Blood Pressure 137/63 Pulse Oximetry 96 Body Mass Index 26.8 Labs Results: 01/11/21 06:16 01/11/21 06:16 Medications Medications Current Medications Generic Name Dose Route Start Last Admin Trade Name Freq PRN Reason Stop Dose Admin Acetaminophen 650 mg 01/04/21 09:00 01/21/21 22:32 Acetaminophen 325 Mg Tablet PO 650 mg Q6H ANSHUL Administration Al Hydroxide/Mg Hydroxide 30 ml 12/22/20 14:39 Magnesium Hydrox/Alum Hydrox 30 Ml Oral.Susp PO Q6H PRN Heartburn/Nausea Amlodipine Besylate 2.5 mg 12/23/20 09:00 01/21/21 08:21 Amlodipine Besylate 2.5 Mg Tablet PO 2.5 mg DAILY ANSHUL Administration Protocol Carbidopa/Levodopa 1 tab 12/22/20 21:00 01/21/21 22:31 Carbidopa/Levodopa 25/100 Tablet PO 1 tab TID ANSHUL Administration Folic Acid 1 mg 12/23/20 09:00 01/21/21 08:22 Folic Acid 1 Mg Tablet PO 1 mg DAILY ANSHUL Administration Hydroxyzine HCl 25 mg 12/22/20 14:39 12/25/20 20:34 Hydroxyzine Hcl 25 Mg Tablet PO 25 mg BEDTIME PRN Administration Anxiety Ibuprofen 600 mg 12/26/20 11:10 01/21/21 09:55 Ibuprofen 600 Mg Tablet PO 600 mg Q6H PRN Administration Pain, Moderate (Pain Scale 4-6 Levothyroxine Sodium 75 mcg 12/23/20 06:00 01/21/21 05:55 Levothyroxine Sodium 75 Mcg Tablet PO 75 mcg DAILY@0600 ANSHUL Administration Magnesium Hydroxide 30 ml 12/22/20 14:39 Milk Of Magnesia 30 Ml Oral.Susp PO DAILY PRN Constipation Medication 1 each 12/26/20 09:00 No Anticoagulant-Heparin Sq Ok MISCELLANE DAILY ANSHUL Olanzapine 10 mg 01/04/21 21:00 01/21/21 22:33 Olanzapine 10 Mg Tablet PO 10 mg BEDTIME ANSHUL Administration Trazodone HCl 50 mg 12/22/20 14:39 01/13/21 19:49 Trazodone Hcl 50 Mg Tablet PO 50 mg BEDTIME PRN Administration Insomnia Trolamine Salicylate/Aloe Vera 1 appl 01/03/21 21:00 01/21/21 16:17 Trolamine Salicylate 10%/Aloe Cream 35.4 Gm TOPICAL Not Given TID ANSHUL Valproic Acid 375 mg 12/26/20 15:00 01/21/21 22:33 Valproic Acid (As Sodium Salt) 250 Mg/5 Ml Solution PO 375 mg TID ANSHUL Administration Allergies Allergies Allergy/AdvReac Type Severity Reaction Status Date / Time thioridazine [From Mellaril] Allergy Unknown Unknown Verified 12/22/20 13:25 Assessment & Plan Assessment & Plan (1) Bipolar disorder: Status: Acute Code(s): F31.9 - Bipolar disorder, unspecified (2) Delirium: Status: Acute Code(s): R41.0 - Disorientation, unspecified (3) Parkinson disease: Status: Acute Code(s): G20 - Parkinson's disease Assessment and Plan: Elderly female with good social support with the history of Bipolar disorder, Parkinson's disease and admitted for acute changes on her mental status with psychotic symptoms, unable to take care of her ADL's and agitation. We have notice that the level of functioning of the patient is very low and she could be a good candidate for SNF. Plan: Keep same treatment. Refer to rehab setting no change indicated patient dysphoric withdrawn Greater than 50% of the session was spent on counseling and/or coordination of care Reason for contiued inpatient stay Substantial Risk for: inability to function and rapid decompensation
[2021-01-22] MEDS: Ibuprofen 600 MG TABLET PO ×3 (01:21→14:37)
[2021-01-22] MEDS: Acetaminophen 325 MG TABLET 650 MG PO ×4 (04:02→21:35)
[2021-01-22] MEDS: Levothyroxine Sodium 75 MCG TABLET PO (06:31)
[2021-01-22 08:59] VITALS: BP 110/60; PULSE 86
[2021-01-22] MEDS: amLODIPine Besylate 2.5 MG TABLET PO (08:59)
[2021-01-22] MEDS: Folic Acid 1 MG TABLET PO (09:00)
[2021-01-22] MEDS: Carbidopa/Levodopa 25/100 TABLET 1 TAB PO ×3 (09:00→21:24)
[2021-01-22 21:15] VITALS: BP 122/61; PULSE 82; RESP 16; TEMP 36.9; O2SAT 96
[2021-01-22] MEDS: OLANZapine 10 MG TABLET PO (21:23)
--- NOTE | 2021-01-22 22:41 | HO.PSYCHPN ---
Subjective Subjective Date of Service: 01/25/21 Reason For Visit: Unspec Bipolar D/O Anxiety D/O Interim History: Pt flat not combative social on unit dysphoric cough ? wheeze Medication Compliance: Yes Mental Status Exam Mental Status Exam Narrative: Appearance: casually groomed, fair hygiene in NAD Behavior:irritable edge, not easily engaged in interview psychomotor:no agitation nor retardation noted Speech:clear, mumbles at times, delayed response rate, minimally spontaneous Thought concrete Thought content:no overt delusional content, irritable about being bothered. Mood OK Affect: irritable edge SI:denies HI:denies VH/AH:does not appear internally preoccupied. Delusions:no overt delusional content reported Insight/judgment:impaired x 2 Memory/cog: alert, not oriented to place, situation, month, date. Patient Appearance: Well Grooomed Patient Orientation: Person Level of Consciousness: Awake Patient Behavior: Appropriate and Guarded Mood Description: Constricted Affect Description: Constricted Patient Cognition Impaired: Yes Ability to Follow Directions: Good Speech Pattern: Clear Memory Description: Intact Diagnostics Vital Signs (24Hr): Vital Signs - 24 hr 01/22/21 08:59 Pulse Rate 86 Blood Pressure 110/60 Body Mass Index 26.8 Labs Results: 01/11/21 06:16 01/11/21 06:16 Medications Medications Current Medications Generic Name Dose Route Start Last Admin Trade Name Saadq PRN Reason Stop Dose Admin Acetaminophen 650 mg 01/04/21 09:00 01/22/21 21:35 Acetaminophen 325 Mg Tablet PO 650 mg Q6H ANSHUL Administration Al Hydroxide/Mg Hydroxide 30 ml 12/22/20 14:39 Magnesium Hydrox/Alum Hydrox 30 Ml Oral.Susp PO Q6H PRN Heartburn/Nausea Amlodipine Besylate 2.5 mg 12/23/20 09:00 01/22/21 08:59 Amlodipine Besylate 2.5 Mg Tablet PO 2.5 mg DAILY ANSHUL Administration Protocol Carbidopa/Levodopa 1 tab 12/22/20 21:00 01/22/21 21:24 Carbidopa/Levodopa 25/100 Tablet PO 1 tab TID ANSHUL Administration Folic Acid 1 mg 12/23/20 09:00 01/22/21 09:00 Folic Acid 1 Mg Tablet PO 1 mg DAILY ANSHUL Administration Hydroxyzine HCl 25 mg 12/22/20 14:39 12/25/20 20:34 Hydroxyzine Hcl 25 Mg Tablet PO 25 mg BEDTIME PRN Administration Anxiety Ibuprofen 600 mg 12/26/20 11:10 01/22/21 14:37 Ibuprofen 600 Mg Tablet PO 600 mg Q6H PRN Administration Pain, Moderate (Pain Scale 4-6 Levothyroxine Sodium 75 mcg 12/23/20 06:00 01/22/21 06:31 Levothyroxine Sodium 75 Mcg Tablet PO 75 mcg DAILY@0600 ANSHUL Administration Magnesium Hydroxide 30 ml 12/22/20 14:39 Milk Of Magnesia 30 Ml Oral.Susp PO DAILY PRN Constipation Medication 1 each 12/26/20 09:00 No Anticoagulant-Heparin Sq Ok MISCELLANE DAILY ANSHUL Olanzapine 10 mg 01/04/21 21:00 01/22/21 21:23 Olanzapine 10 Mg Tablet PO 10 mg BEDTIME ANSHUL Administration Trazodone HCl 50 mg 12/22/20 14:39 01/13/21 19:49 Trazodone Hcl 50 Mg Tablet PO 50 mg BEDTIME PRN Administration Insomnia Trolamine Salicylate/Aloe Vera 1 appl 01/03/21 21:00 01/22/21 22:16 Trolamine Salicylate 10%/Aloe Cream 35.4 Gm TOPICAL Not Given TID ANSHUL Valproic Acid 375 mg 12/26/20 15:00 01/22/21 21:25 Valproic Acid (As Sodium Salt) 250 Mg/5 Ml Solution PO 375 mg TID ANSHUL Administration Allergies Allergies Allergy/AdvReac Type Severity Reaction Status Date / Time thioridazine [From Mellaril] Allergy Unknown Unknown Verified 12/22/20 13:25 Assessment & Plan Assessment & Plan (1) Bipolar disorder: Status: Acute Code(s): F31.9 - Bipolar disorder, unspecified (2) Delirium: Status: Acute Code(s): R41.0 - Disorientation, unspecified (3) Parkinson disease: Status: Acute Code(s): G20 - Parkinson's disease Assessment and Plan: Elderly female with good social support with the history of Bipolar disorder, Parkinson's disease and admitted for acute changes on her mental status with psychotic symptoms, unable to take care of her ADL's and agitation. We have notice that the level of functioning of the patient is very low and she could be a good candidate for SNF. Plan: Keep same treatment. Refer to rehab setting no change indicated patient dysphoric withdrawn Greater than 50% of the session was spent on counseling and/or coordination of care Reason for contiued inpatient stay Substantial Risk for: harm to self and rapid decompensation
[2021-01-23] MEDS: Acetaminophen 325 MG TABLET 650 MG PO ×3 (03:19→14:40)
[2021-01-23] MEDS: Ibuprofen 600 MG TABLET PO (04:20)
[2021-01-23 06:00] VITALS: BP 119/80; PULSE 80; RESP 18; TEMP 36.7; O2SAT 96
[2021-01-23] MEDS: Levothyroxine Sodium 75 MCG TABLET PO (06:45)
[2021-01-23 08:29] VITALS: BP 119/80; PULSE 82
[2021-01-23] MEDS: Folic Acid 1 MG TABLET PO (08:29)
[2021-01-23] MEDS: amLODIPine Besylate 2.5 MG TABLET PO (08:29)
[2021-01-23] MEDS: Carbidopa/Levodopa 25/100 TABLET 1 TAB PO ×3 (08:29→19:52)
--- NOTE | 2021-01-23 11:47 | P.PNPSI_ITS ---
Subjective Subjective Date of Service: 01/24/21 Reason For Visit: Unspec Bipolar D/O Anxiety D/O Interim History: Per nursing, pt has been more visble in the unit, slightly less irritable when approached. Today, pt was in bed. She did not talk much to this insurance writer, mostly stating she was fine and to leave her alone. She denies SI/HI. She has been sleeping and eating well. No behavioral concerns. Medication Compliance: Yes Side effects from medications: No Mental Status Exam Mental Status Exam Narrative: Appearance: casually groomed, fair hygiene in NAD Behavior:irritable edge, not easily engaged in interview psychomotor:no agitation nor retardation noted Speech:clear, mumbles at times, delayed response rate, minimally spontaneous Thought process:single word answers Thought content:no overt delusional content, irritable about being bothered. Mood: fine Affect: irritable edge SI:denies HI:denies VH/AH:does not appear internally preoccupied. Delusions:no overt delusional content reported Insight/judgment:impaired x 2 Memory/cog: alert, not oriented to place, situation, month, date, underlying neurocognitive disorder. Diagnostics Vital Signs (24Hr): Vital Signs - 24 hr 01/23/21 18:00 01/24/21 06:00 01/24/21 10:02 Temperature 98.1 F 98.2 F Pulse Rate 78 83 83 Respiratory Rate 16 Blood Pressure 133/59 L 137/67 137/67 Pulse Oximetry 94 96 Body Mass Index 26.8 Labs Results: 01/11/21 06:16 01/11/21 06:16 Labs: Laboratory Results - last 48 hr 01/24/21 10:45 COVID-19 ([facility]) Negative COVID-19 Clin Com See Note Imaging Radiology Impressions: ITS Impressions Chest X-Ray 01/24/21 09:52 IMPRESSION: Unremarkable examination. Medications Medications Current Medications Generic Name Dose Route Start Last Admin Trade Name Freq PRN Reason Stop Dose Admin Acetaminophen 650 mg 01/04/21 09:00 01/24/21 10:03 Acetaminophen 325 Mg Tablet PO 650 mg Q6H ANSHUL Administration Al Hydroxide/Mg Hydroxide 30 ml 12/22/20 14:39 Magnesium Hydrox/Alum Hydrox 30 Ml Oral.Susp PO Q6H PRN Heartburn/Nausea Amlodipine Besylate 2.5 mg 12/23/20 09:00 01/24/21 10:02 Amlodipine Besylate 2.5 Mg Tablet PO 2.5 mg DAILY ANSHUL Administration Protocol Carbidopa/Levodopa 1 tab 12/22/20 21:00 01/24/21 10:03 Carbidopa/Levodopa 25/100 Tablet PO 1 tab TID ANSHUL Administration Folic Acid 1 mg 12/23/20 09:00 01/24/21 10:03 Folic Acid 1 Mg Tablet PO 1 mg DAILY ANSHUL Administration Guaifenesin/Dextromethorphan 1 tab 01/23/21 21:14 01/24/21 00:16 Guaifenesin Dm 600/30 1 Tab Tab.Er.12h PO 1 tab BID PRN Administration Cough Hydroxyzine HCl 25 mg 12/22/20 14:39 12/25/20 20:34 Hydroxyzine Hcl 25 Mg Tablet PO 25 mg BEDTIME PRN Administration Anxiety Ibuprofen 600 mg 12/26/20 11:10 01/24/21 01:36 Ibuprofen 600 Mg Tablet PO 600 mg Q6H PRN Administration Pain, Moderate (Pain Scale 4-6 Levothyroxine Sodium 75 mcg 12/23/20 06:00 01/24/21 06:09 Levothyroxine Sodium 75 Mcg Tablet PO 75 mcg DAILY@0600 ANSHUL Administration Magnesium Hydroxide 30 ml 12/22/20 14:39 Milk Of Magnesia 30 Ml Oral.Susp PO DAILY PRN Constipation Medication 1 each 12/26/20 09:00 No Anticoagulant-Heparin Sq Ok MISCELLANE DAILY [facility] Olanzapine 10 mg 01/04/21 21:00 01/23/21 19:50 Olanzapine 10 Mg Tablet PO 10 mg BEDTIME ANSHUL Administration Trazodone HCl 50 mg 12/22/20 14:39 01/13/21 19:49 Trazodone Hcl 50 Mg Tablet PO 50 mg BEDTIME PRN Administration Insomnia Trolamine Salicylate/Aloe Vera 1 appl 01/03/21 21:00 01/24/21 10:04 Trolamine Salicylate 10%/Aloe Cream 35.4 Gm TOPICAL Not Given TID ANSHUL Valproic Acid 375 mg 12/26/20 15:00 01/24/21 10:02 Valproic Acid (As Sodium Salt) 250 Mg/5 Ml Solution PO 375 mg TID ANSHUL Administration Allergies Allergies Allergy/AdvReac Type Severity Reaction Status Date / Time thioridazine [From Mellaril] Allergy Unknown Unknown Verified 12/22/20 13:25 Assessment & Plan Assessment & Plan (1) Bipolar disorder: Status: Acute Code(s): F31.9 - Bipolar disorder, unspecified (2) Delirium: Status: Acute Code(s): R41.0 - Disorientation, unspecified (3) Parkinson disease: Status: Acute Code(s): G20 - Parkinson's disease Assessment and Plan: Elderly female with good social support with the history of Bipolar disorder, Parkinson's disease and admitted for acute changes on her mental status with psychotic symptoms, unable to take care of her ADL's and agitation. We have notice that the level of functioning of the patient is very low and she could be a good candidate for SNF. Continue per primary treatment team- Plan: 1. continue current medications 2. after care planning Greater than 50% of the session was spent on counseling and/or coordination of care Reason for contiued inpatient stay Substantial Risk for: inability to function
[2021-01-23 18:00] VITALS: BP 133/59; PULSE 78; RESP 16; TEMP 36.7; O2SAT 94
[2021-01-23] MEDS: OLANZapine 10 MG TABLET PO (19:50)
--- NOTE | 2021-01-23 21:28 | PM.EVENT ---
Event Note Date of Service: 01/23/21 Event Note: Patient reported having a cough with sputum, no nasal congestion, afebrile. Per RN, lungs sounds diminished in bottom lobe but otherwise unremarkable. O2 sat wnl. She is a non-smoker. Per Brooklynn, her cough started this afternoon, worse when she lies down, feels fluid in her chest, drinking water helps. Will start PRN mucinex DM for congestion/ cough relief. If cough is unresolved, can consult with hospitalist. Reviewed risks/ benefits.
[2021-01-24] MEDS: guaiFENesin DM 600/30 1 TAB TAB.ER.12H PO (00:16)
[2021-01-24] MEDS: Ibuprofen 600 MG TABLET PO (01:36)
[2021-01-24 06:00] VITALS: BP 137/67; PULSE 83; TEMP 36.8; O2SAT 96
[2021-01-24] MEDS: Levothyroxine Sodium 75 MCG TABLET PO (06:09)
[2021-01-24 10:02] VITALS: BP 137/67; PULSE 83
[2021-01-24] MEDS: amLODIPine Besylate 2.5 MG TABLET PO (10:02)
[2021-01-24] MEDS: Carbidopa/Levodopa 25/100 TABLET 1 TAB PO ×3 (10:03→21:03)
[2021-01-24] MEDS: Folic Acid 1 MG TABLET PO (10:03)
[2021-01-24] MEDS: Acetaminophen 325 MG TABLET 650 MG PO ×3 (10:03→21:03)
[2021-01-24 11:30] LABS: COVID-19 Test Negative (Negative)
--- NOTE | 2021-01-24 11:52 | P.PNPSI_ITS ---
Subjective Subjective Date of Service: 01/24/21 Reason For Visit: Unspec Bipolar D/O Anxiety D/O Interim History: Per nursing, pt has been more visble in the unit, slightly less irritable when approached. Pt more visible in unit today. Her affect significantly brighten as this senior mortgage underwriter ask her about her . SHe smiled as she said that she loves when he comes to visit her. She reports they have been together since high school and that he cares very much about her and does so many things for her. She denies SI/HI. Pt not oriented to month, day/date, situation, place. Pt had cough last night. chest x ray ordered- no signs of pnemonia. on mucinex, awaiting repeat covid test. afebrile. Medication Compliance: Yes Side effects from medications: No Attending Groups: No Review of Systems Acute medical concerns: No Mental Status Exam Mental Status Exam Narrative: Appearance: casually groomed, fair hygiene in NAD Behavior:irritable edge, not easily engaged in interview psychomotor:no agitation nor retardation noted Speech:clear, mumbles at times, delayed response rate, minimally spontaneous Thought process:single word answers Thought content:no overt delusional content, irritable about being bothered. Mood: fine Affect: irritable edge SI:denies HI:denies VH/AH:does not appear internally preoccupied. Delusions:no overt delusional content reported Insight/judgment:impaired x 2 Memory/cog: alert, not oriented to place, situation, month, date, underlying neurocognitive disorder. Diagnostics Vital Signs (24Hr): Vital Signs - 24 hr 01/23/21 18:00 01/24/21 06:00 01/24/21 10:02 Temperature 98.1 F 98.2 F Pulse Rate 78 83 83 Respiratory Rate 16 Blood Pressure 133/59 L 137/67 137/67 Pulse Oximetry 94 96 Body Mass Index 26.8 Labs Results: 01/11/21 06:16 01/11/21 06:16 Labs: Laboratory Results - last 48 hr 01/24/21 10:45 COVID-19 ([facility]) Negative COVID-19 Clin Com See Note Imaging Radiology Impressions: ITS Impressions Chest X-Ray 01/24/21 09:52 IMPRESSION: Unremarkable examination. Medications Medications Current Medications Generic Name Dose Route Start Last Admin Trade Name Freq PRN Reason Stop Dose Admin Acetaminophen 650 mg 01/04/21 09:00 01/24/21 10:03 Acetaminophen 325 Mg Tablet PO 650 mg Q6H ANSHUL Administration Al Hydroxide/Mg Hydroxide 30 ml 12/22/20 14:39 Magnesium Hydrox/Alum Hydrox 30 Ml Oral.Susp PO Q6H PRN Heartburn/Nausea Amlodipine Besylate 2.5 mg 12/23/20 09:00 01/24/21 10:02 Amlodipine Besylate 2.5 Mg Tablet PO 2.5 mg DAILY ANSHUL Administration Protocol Carbidopa/Levodopa 1 tab 12/22/20 21:00 01/24/21 10:03 Carbidopa/Levodopa 25/100 Tablet PO 1 tab TID ANSHUL Administration Folic Acid 1 mg 12/23/20 09:00 01/24/21 10:03 Folic Acid 1 Mg Tablet PO 1 mg DAILY ANSHUL Administration Guaifenesin/Dextromethorphan 1 tab 01/23/21 21:14 01/24/21 00:16 Guaifenesin Dm 600/30 1 Tab Tab.Er.12h PO 1 tab BID PRN Administration Cough Hydroxyzine HCl 25 mg 12/22/20 14:39 12/25/20 20:34 Hydroxyzine Hcl 25 Mg Tablet PO 25 mg BEDTIME PRN Administration Anxiety Ibuprofen 600 mg 12/26/20 11:10 01/24/21 01:36 Ibuprofen 600 Mg Tablet PO 600 mg Q6H PRN Administration Pain, Moderate (Pain Scale 4-6 Levothyroxine Sodium 75 mcg 12/23/20 06:00 01/24/21 06:09 Levothyroxine Sodium 75 Mcg Tablet PO 75 mcg DAILY@0600 ANSHUL Administration Magnesium Hydroxide 30 ml 12/22/20 14:39 Milk Of Magnesia 30 Ml Oral.Susp PO DAILY PRN Constipation Medication 1 each 12/26/20 09:00 No Anticoagulant-Heparin Sq Ok MISCELLANE DAILY ANSHUL Olanzapine 10 mg 01/04/21 21:00 01/23/21 19:50 Olanzapine 10 Mg Tablet PO 10 mg BEDTIME ANSHUL Administration Trazodone HCl 50 mg 12/22/20 14:39 01/13/21 19:49 Trazodone Hcl 50 Mg Tablet PO 50 mg BEDTIME PRN Administration Insomnia Trolamine Salicylate/Aloe Vera 1 appl 01/03/21 21:00 01/24/21 10:04 Trolamine Salicylate 10%/Aloe Cream 35.4 Gm TOPICAL Not Given TID ANSHUL Valproic Acid 375 mg 12/26/20 15:00 01/24/21 10:02 Valproic Acid (As Sodium Salt) 250 Mg/5 Ml Solution PO 375 mg TID ANSHUL Administration Allergies Allergies Allergy/AdvReac Type Severity Reaction Status Date / Time thioridazine [From Mellaril] Allergy Unknown Unknown Verified 12/22/20 13:25 Assessment & Plan Assessment & Plan (1) Bipolar disorder: Status: Acute Code(s): F31.9 - Bipolar disorder, unspecified (2) Delirium: Status: Acute Code(s): R41.0 - Disorientation, unspecified (3) Parkinson disease: Status: Acute Code(s): G20 - Parkinson's disease Assessment and Plan: Elderly female with good social support with the history of Bipolar disorder, Parkinson's disease and admitted for acute changes on her mental status with psychotic symptoms, unable to take care of her ADL's and agitation. We have notice that the level of functioning of the patient is very low and she could be a good candidate for SNF. Continue per primary treatment team- Plan: 1. continue current medications 2. after care planning Greater than 50% of the session was spent on counseling and/or coordination of care Reason for contiued inpatient stay Substantial Risk for: inability to function
[2021-01-24 14:37] VITALS: BP 137/67; PULSE 83
[2021-01-24 18:00] VITALS: BP 141/65; PULSE 79; RESP 13; TEMP 37.3; O2SAT 98
[2021-01-24] MEDS: OLANZapine 10 MG TABLET PO (21:03)
[2021-01-25] MEDS: Levothyroxine Sodium 75 MCG TABLET PO (05:33)
[2021-01-25 06:00] VITALS: BP 162/70; PULSE 85; RESP 16; TEMP 36.8; O2SAT 98
[2021-01-25] MEDS: Folic Acid 1 MG TABLET PO (08:33)
[2021-01-25 08:34] VITALS: BP 162/70; PULSE 85
[2021-01-25] MEDS: Acetaminophen 325 MG TABLET 650 MG PO ×2 (08:34→15:37)
[2021-01-25] MEDS: amLODIPine Besylate 2.5 MG TABLET PO (08:34)
[2021-01-25] MEDS: Carbidopa/Levodopa 25/100 TABLET 1 TAB PO ×3 (08:34→20:16)
--- NOTE | 2021-01-25 14:37 | HO.PSYCHPN ---
Subjective Subjective Date of Service: 01/25/21 Reason For Visit: Unspec Bipolar D/O Anxiety D/O Subjective Notes: Conditional Voluntary Interim History: Or the nursing staff reported the patient has been cooperative with care. There were no episodes of incontinence, she was able to go outside and so far, she is at baseline. The social work case manager reported the recent meeting next week with her to discuss possibility of alternatives for discharge planning. Medication Compliance: Yes Side effects from medications: No Attending Groups: Yes Review of Systems Acute medical concerns: No Medical Review of Systems: unchanged Mental Status Exam Mental Status Exam Patient Appearance: Well Grooomed Patient Orientation: Person Level of Consciousness: Awake Patient Behavior: Appropriate and Cooperative Mood Description: Calm Affect Description: Constricted Patient Cognition Impaired: Yes Ability to Follow Directions: Fair Speech Pattern: Clear Hallucinations: None Delusions: Not Present Thought Process: Distracted and Evasive Thought Content: positive for Thought Blocking Judgement: Fair Diagnostics Vital Signs (24Hr): Vital Signs - 24 hr 01/24/21 18:00 01/25/21 06:00 01/25/21 08:34 Temperature 99.1 F 98.3 F Pulse Rate 79 85 85 Respiratory Rate 13 16 Blood Pressure 141/65 H 162/70 H 162/70 H Pulse Oximetry 98 98 Body Mass Index 26.8 Labs Results: 01/11/21 06:16 01/11/21 06:16 Labs: Laboratory Results - last 48 hr 01/24/21 10:45 COVID-19 ([facility]) Negative COVID-19 Clin Com See Note Imaging Radiology Impressions: ITS Impressions Chest X-Ray 01/24/21 09:52 IMPRESSION: Unremarkable examination. Medications Medications Current Medications Generic Name Dose Route Start Last Admin Trade Name Freq PRN Reason Stop Dose Admin Acetaminophen 650 mg 01/04/21 09:00 01/25/21 08:34 Acetaminophen 325 Mg Tablet PO 650 mg Q6H ANSHUL Administration Al Hydroxide/Mg Hydroxide 30 ml 12/22/20 14:39 Magnesium Hydrox/Alum Hydrox 30 Ml Oral.Susp PO Q6H PRN Heartburn/Nausea Amlodipine Besylate 2.5 mg 12/23/20 09:00 01/25/21 08:34 Amlodipine Besylate 2.5 Mg Tablet PO 2.5 mg DAILY ANSHUL Administration Protocol Carbidopa/Levodopa 1 tab 12/22/20 21:00 01/25/21 08:34 Carbidopa/Levodopa 25/100 Tablet PO 1 tab TID ANSHUL Administration Folic Acid 1 mg 12/23/20 09:00 01/25/21 08:33 Folic Acid 1 Mg Tablet PO 1 mg DAILY ANSHUL Administration Guaifenesin/Dextromethorphan 1 tab 01/23/21 21:14 01/24/21 00:16 Guaifenesin Dm 600/30 1 Tab Tab.Er.12h PO 1 tab BID PRN Administration Cough Hydroxyzine HCl 25 mg 12/22/20 14:39 12/25/20 20:34 Hydroxyzine Hcl 25 Mg Tablet PO 25 mg BEDTIME PRN Administration Anxiety Ibuprofen 600 mg 12/26/20 11:10 01/24/21 01:36 Ibuprofen 600 Mg Tablet PO 600 mg Q6H PRN Administration Pain, Moderate (Pain Scale 4-6 Levothyroxine Sodium 75 mcg 12/23/20 06:00 01/25/21 05:33 Levothyroxine Sodium 75 Mcg Tablet PO 75 mcg DAILY@0600 ANSHUL Administration Magnesium Hydroxide 30 ml 12/22/20 14:39 Milk Of Magnesia 30 Ml Oral.Susp PO DAILY PRN Constipation Medication 1 each 12/26/20 09:00 No Anticoagulant-Heparin Sq Ok MISCELLANE DAILY ANSHLU Olanzapine 10 mg 01/04/21 21:00 01/24/21 21:03 Olanzapine 10 Mg Tablet PO 10 mg BEDTIME ANSHUL Administration Trazodone HCl 50 mg 12/22/20 14:39 01/13/21 19:49 Trazodone Hcl 50 Mg Tablet PO 50 mg BEDTIME PRN Administration Insomnia Trolamine Salicylate/Aloe Vera 1 appl 01/03/21 21:00 01/25/21 08:33 Trolamine Salicylate 10%/Aloe Cream 35.4 Gm TOPICAL 1 appl TID ANSHUL Administration Valproic Acid 375 mg 12/26/20 15:00 01/25/21 08:33 Valproic Acid (As Sodium Salt) 250 Mg/5 Ml Solution PO 375 mg TID ANSHUL Administration Allergies Allergies Allergy/AdvReac Type Severity Reaction Status Date / Time thioridazine [From Mellaril] Allergy Unknown Unknown Verified 12/22/20 13:25 Assessment & Plan Assessment & Plan (1) Bipolar disorder: Status: Acute Code(s): F31.9 - Bipolar disorder, unspecified (2) Delirium: Status: Acute Code(s): R41.0 - Disorientation, unspecified (3) Parkinson disease: Status: Acute Code(s): G20 - Parkinson's disease Assessment and Plan: Elderly female with good social support with the history of Bipolar disorder, Parkinson's disease and admitted for acute changes on her mental status with psychotic symptoms, unable to take care of her ADL's and agitation. We have notice that the level of functioning of the patient is very low and she could be a good candidate for SNF. Plan: Keep same treatment. Refer to rehab setting no change indicated patient dysphoric withdrawn Greater than 50% of the session was spent on counseling and/or coordination of care Reason for contiued inpatient stay Substantial Risk for: inability to function, rapid decompensation and med/psych decompensation
[2021-01-25] MEDS: OLANZapine 10 MG TABLET PO (20:16)
[2021-01-25 20:26] VITALS: BP 125/61; PULSE 86; RESP 16; TEMP 36.4; O2SAT 98
[2021-01-26 06:00] VITALS: BP 120/57; PULSE 82; O2SAT 98
[2021-01-26] MEDS: Levothyroxine Sodium 75 MCG TABLET PO (06:00)
[2021-01-26] MEDS: Acetaminophen 325 MG TABLET 650 MG PO ×3 (06:00→20:00)
[2021-01-26] MEDS: Folic Acid 1 MG TABLET PO (09:19)
[2021-01-26] MEDS: Carbidopa/Levodopa 25/100 TABLET 1 TAB PO ×3 (09:19→20:00)
[2021-01-26 09:22] VITALS: BP 120/57; PULSE 82
[2021-01-26] MEDS: amLODIPine Besylate 2.5 MG TABLET PO (09:22)
[2021-01-26 14:03] VITALS: BMI 28.0
[2021-01-26] MEDS: Ibuprofen 600 MG TABLET PO (14:42)
--- NOTE | 2021-01-26 16:23 | P.PNPSI_ITS ---
Subjective Subjective Date of Service: 01/26/21 Reason For Visit: Unspec Bipolar D/O Anxiety D/O Interim History: Pt seen with in the room. Pt does talk with underwriter solicitation director when asked about her and how she brightens up when he is present. Pt has been declining to do PT- reports she can return home but only if able to ambulate with walker some short distance. When this underwriter solicitation director asked this underwriter solicitation director how come she has decline PT, pt mute again, limited eye contact. Medication Compliance: Yes Side effects from medications: No Attending Groups: No Review of Systems Acute medical concerns: No Mental Status Exam Mental Status Exam Narrative: Appearance: casually groomed, fair hygiene in NAD Behavior:irritable edge, not easily engaged in interview psychomotor:no agitation nor retardation noted Speech:clear, mumbles at times, delayed response rate, minimally spontaneous Thought concrete Thought content:no overt delusional content, irritable about being bothered. Mood OK Affect: irritable edge SI:denies HI:denies VH/AH:does not appear internally preoccupied. Delusions:no overt delusional content reported Insight/judgment:impaired x 2 Memory/cog: alert, not oriented to place, situation, month, date. Diagnostics Vital Signs (24Hr): Vital Signs - 24 hr 01/25/21 20:26 01/26/21 06:00 01/26/21 09:22 Temperature 97.5 F Pulse Rate 86 82 82 Respiratory Rate 16 Blood Pressure 125/61 120/57 L 120/57 L Pulse Oximetry 98 98 Body Mass Index 28.0 Labs Results: 01/11/21 06:16 01/11/21 06:16 Imaging Radiology Impressions: ITS Impressions Chest X-Ray 01/24/21 09:52 IMPRESSION: Unremarkable examination. Medications Medications Current Medications Generic Name Dose Route Start Last Admin Trade Name Freq PRN Reason Stop Dose Admin Acetaminophen 650 mg 01/04/21 09:00 01/26/21 14:42 Acetaminophen 325 Mg Tablet PO 650 mg Q6H ANSHUL Administration Al Hydroxide/Mg Hydroxide 30 ml 12/22/20 14:39 Magnesium Hydrox/Alum Hydrox 30 Ml Oral.Susp PO Q6H PRN Heartburn/Nausea Amlodipine Besylate 2.5 mg 12/23/20 09:00 01/26/21 09:22 Amlodipine Besylate 2.5 Mg Tablet PO 2.5 mg DAILY ANSHUL Administration Protocol Carbidopa/Levodopa 1 tab 12/22/20 21:00 01/26/21 14:36 Carbidopa/Levodopa 25/100 Tablet PO 1 tab TID ANSHUL Administration Folic Acid 1 mg 12/23/20 09:00 01/26/21 09:19 Folic Acid 1 Mg Tablet PO 1 mg DAILY ANSHUL Administration Guaifenesin/Dextromethorphan 1 tab 01/23/21 21:14 01/24/21 00:16 Guaifenesin Dm 600/30 1 Tab Tab.Er.12h PO 1 tab BID PRN Administration Cough Hydroxyzine HCl 25 mg 12/22/20 14:39 12/25/20 20:34 Hydroxyzine Hcl 25 Mg Tablet PO 25 mg BEDTIME PRN Administration Anxiety Ibuprofen 600 mg 12/26/20 11:10 01/26/21 14:42 Ibuprofen 600 Mg Tablet PO 600 mg Q6H PRN Administration Pain, Moderate (Pain Scale 4-6 Levothyroxine Sodium 75 mcg 12/23/20 06:00 01/26/21 06:00 Levothyroxine Sodium 75 Mcg Tablet PO 75 mcg DAILY@0600 ANSHUL Administration Magnesium Hydroxide 30 ml 12/22/20 14:39 Milk Of Magnesia 30 Ml Oral.Susp PO DAILY PRN Constipation Medication 1 each 12/26/20 09:00 No Anticoagulant-Heparin Sq Ok MISCELLANE DAILY [facility] Olanzapine 10 mg 01/04/21 21:00 01/25/21 20:16 Olanzapine 10 Mg Tablet PO 10 mg BEDTIME ANSHUL Administration Trazodone HCl 50 mg 12/22/20 14:39 01/13/21 19:49 Trazodone Hcl 50 Mg Tablet PO 50 mg BEDTIME PRN Administration Insomnia Trolamine Salicylate/Aloe Vera 1 appl 01/03/21 21:00 01/26/21 13:39 Trolamine Salicylate 10%/Aloe Cream 35.4 Gm TOPICAL Not Given TID [facility] Valproic Acid 375 mg 12/26/20 15:00 01/26/21 14:36 Valproic Acid (As Sodium Salt) 250 Mg/5 Ml Solution PO 375 mg TID ANSHUL Administration Allergies Allergies Allergy/AdvReac Type Severity Reaction Status Date / Time thioridazine [From Mellaril] Allergy Unknown Unknown Verified 12/22/20 13:25 Assessment & Plan Assessment & Plan (1) Bipolar disorder: Status: Acute Code(s): F31.9 - Bipolar disorder, unspecified (2) Delirium: Status: Acute Code(s): R41.0 - Disorientation, unspecified (3) Parkinson disease: Status: Acute Code(s): G20 - Parkinson's disease Assessment and Plan: Elderly female with good social support with the history of Bipolar disorder, Parkinson's disease and admitted for acute changes on her mental status with psychotic symptoms, unable to take care of her ADL's and agitation. We have notice that the level of functioning of the patient is very low and she could be a good candidate for SNF. Plan: Keep same treatment. Refer to rehab setting no change indicated patient dysphoric withdrawn Greater than 50% of the session was spent on counseling and/or coordination of care Reason for contiued inpatient stay Substantial Risk for: inability to function
[2021-01-26 18:00] VITALS: BP 132/68; PULSE 83; RESP 16; TEMP 37; O2SAT 98
[2021-01-26] MEDS: OLANZapine 10 MG TABLET PO (20:00)
[2021-01-27] MEDS: Ibuprofen 600 MG TABLET PO (01:32)
[2021-01-27] MEDS: Acetaminophen 325 MG TABLET 650 MG PO ×4 (02:42→19:49)
[2021-01-27] MEDS: Levothyroxine Sodium 75 MCG TABLET PO (05:20)
[2021-01-27 08:15] VITALS: BP 157/73; PULSE 84; RESP 16; TEMP 36.8; O2SAT 97
[2021-01-27 08:19] VITALS: BP 157/73; PULSE 84
[2021-01-27] MEDS: amLODIPine Besylate 2.5 MG TABLET PO (08:19)
[2021-01-27] MEDS: Carbidopa/Levodopa 25/100 TABLET 1 TAB PO ×3 (08:19→19:50)
[2021-01-27] MEDS: Folic Acid 1 MG TABLET PO (08:20)
--- NOTE | 2021-01-27 14:51 | P.PNPSI_ITS ---
Subjective Subjective Date of Service: 01/27/21 Reason For Visit: Unspec Bipolar D/O Anxiety D/O Subjective Notes: Conditional Voluntary Interim History: The staff has reported that the patient is more pleasant and with an affect that is brighter. We have discussed with the team possible discharge options besides half-way. Since the he is willing to take care of her we explored the possibility of discharge home with several ancillary services. On interview, the patient reported that she is doing fine, no new symptoms Medication Compliance: Yes Side effects from medications: No Attending Groups: Intermittent Review of Systems Acute medical concerns: No Medical Review of Systems: unchanged Mental Status Exam Mental Status Exam Patient Appearance: Well Grooomed Patient Orientation: Person Level of Consciousness: Awake Patient Behavior: Cooperative Mood Description: Blunted Affect Description: Constricted Patient Cognition Impaired: Yes Ability to Follow Directions: Good Speech Pattern: Clear Hallucinations: None Delusions: Not Present Thought Process: Goal Oriented Thought Content: positive for Circumstantial Judgement: Fair Diagnostics Vital Signs (24Hr): Vital Signs - 24 hr 01/26/21 18:00 01/27/21 08:15 01/27/21 08:19 Temperature 98.6 F 98.2 F Pulse Rate 83 84 84 Respiratory Rate 16 16 Blood Pressure 132/68 157/73 H 157/73 H Pulse Oximetry 98 97 Body Mass Index 28.0 Labs Results: 01/11/21 06:16 01/11/21 06:16 Imaging Radiology Impressions: ITS Impressions Chest X-Ray 01/24/21 09:52 IMPRESSION: Unremarkable examination. Medications Medications Current Medications Generic Name Dose Route Start Last Admin Trade Name Freq PRN Reason Stop Dose Admin Acetaminophen 650 mg 01/04/21 09:00 01/27/21 08:18 Acetaminophen 325 Mg Tablet PO 650 mg Q6H ANSHUL Administration Al Hydroxide/Mg Hydroxide 30 ml 12/22/20 14:39 Magnesium Hydrox/Alum Hydrox 30 Ml Oral.Susp PO Q6H PRN Heartburn/Nausea Amlodipine Besylate 2.5 mg 12/23/20 09:00 01/27/21 08:19 Amlodipine Besylate 2.5 Mg Tablet PO 2.5 mg DAILY ANSHUL Administration Protocol Carbidopa/Levodopa 1 tab 12/22/20 21:00 01/27/21 08:19 Carbidopa/Levodopa 25/100 Tablet PO 1 tab TID ANSHUL Administration Folic Acid 1 mg 12/23/20 09:00 01/27/21 08:20 Folic Acid 1 Mg Tablet PO 1 mg DAILY ANSHUL Administration Guaifenesin/Dextromethorphan 1 tab 01/23/21 21:14 01/24/21 00:16 Guaifenesin Dm 600/30 1 Tab Tab.Er.12h PO 1 tab BID PRN Administration Cough Hydroxyzine HCl 25 mg 12/22/20 14:39 12/25/20 20:34 Hydroxyzine Hcl 25 Mg Tablet PO 25 mg BEDTIME PRN Administration Anxiety Ibuprofen 600 mg 12/26/20 11:10 01/27/21 01:32 Ibuprofen 600 Mg Tablet PO 600 mg Q6H PRN Administration Pain, Moderate (Pain Scale 4-6 Levothyroxine Sodium 75 mcg 12/23/20 06:00 01/27/21 05:20 Levothyroxine Sodium 75 Mcg Tablet PO 75 mcg DAILY@0600 ANSHUL Administration Magnesium Hydroxide 30 ml 12/22/20 14:39 Milk Of Magnesia 30 Ml Oral.Susp PO DAILY PRN Constipation Medication 1 each 12/26/20 09:00 No Anticoagulant-Heparin Sq Ok MISCELLANE DAILY ANSHUL Olanzapine 10 mg 01/04/21 21:00 01/26/21 20:00 Olanzapine 10 Mg Tablet PO 10 mg BEDTIME ANSHUL Administration Trazodone HCl 50 mg 12/22/20 14:39 01/13/21 19:49 Trazodone Hcl 50 Mg Tablet PO 50 mg BEDTIME PRN Administration Insomnia Trolamine Salicylate/Aloe Vera 1 appl 01/03/21 21:00 01/27/21 08:20 Trolamine Salicylate 10%/Aloe Cream 35.4 Gm TOPICAL Not Given TID [facility] Valproic Acid 375 mg 12/26/20 15:00 01/27/21 08:22 Valproic Acid (As Sodium Salt) 250 Mg/5 Ml Solution PO 375 mg TID ANSHUL Administration Allergies Allergies Allergy/AdvReac Type Severity Reaction Status Date / Time thioridazine [From Mellaril] Allergy Unknown Unknown Verified 12/22/20 13:25 Assessment & Plan Assessment & Plan (1) Bipolar disorder: Status: Acute Code(s): F31.9 - Bipolar disorder, unspecified (2) Delirium: Status: Acute Code(s): R41.0 - Disorientation, unspecified (3) Parkinson disease: Status: Acute Code(s): G20 - Parkinson's disease Assessment and Plan: Elderly female with good social support with the history of Bipolar disorder, Parkinson's disease and admitted for acute changes on her mental status with psychotic symptoms, unable to take care of her ADL's and agitation. We have notice that the level of functioning of the patient is very low and she could be a good candidate for SNF. Plan: Keep same treatment. Refer to rehab setting no change indicated patient dysphoric withdrawn. New Depakote level, basic metabolic panel, liver function test, hemoglobin A1c level and lipid panel ordered for Saturday Greater than 50% of the session was spent on counseling and/or coordination of care Reason for contiued inpatient stay Substantial Risk for: inability to function, rapid decompensation and med/psych decompensation
[2021-01-27 18:42] VITALS: BP 142/75; PULSE 104; RESP 18; TEMP 36.9; O2SAT 97
[2021-01-27] MEDS: OLANZapine 10 MG TABLET PO (19:50)
[2021-01-28] MEDS: Acetaminophen 325 MG TABLET 650 MG PO ×4 (02:05→20:22)
[2021-01-28] MEDS: Levothyroxine Sodium 75 MCG TABLET PO (05:57)
[2021-01-28 06:00] VITALS: BP 168/67; PULSE 75; TEMP 37.1; O2SAT 96
[2021-01-28] MEDS: Folic Acid 1 MG TABLET PO (08:47)
[2021-01-28 08:48] VITALS: BP 168/67; PULSE 96
[2021-01-28] MEDS: amLODIPine Besylate 2.5 MG TABLET PO (08:48)
[2021-01-28] MEDS: Carbidopa/Levodopa 25/100 TABLET 1 TAB PO ×3 (08:48→20:22)
--- NOTE | 2021-01-28 12:09 | HO.PSYCHPN ---
Subjective Subjective Date of Service: 01/29/21 Reason For Visit: Unspec Bipolar D/O Anxiety D/O Interim History: Pt has been much more receptive to accept care and interact with staff. She is talking more and affect appears brighter. Pt reports she is doing alright. She reports she continues to have right knee pain. She denies SI/HI. She reports she is sleeping and eating better. Per nursing, pt much more pleasant and engaging with staff- last week refused to work with PT- maybe PT can try again now that pt more agreable. Medication Compliance: Yes Side effects from medications: No Mental Status Exam Mental Status Exam Narrative: Appearance: casually groomed, fair hygiene in NAD Behavior:irritable edge, not easily engaged in interview psychomotor:no agitation nor retardation noted Speech:clear, mumbles at times, delayed response rate, minimally spontaneous Thought concrete Thought content:no overt delusional content, irritable about being bothered. Mood OK Affect: irritable edge SI:denies HI:denies VH/AH:does not appear internally preoccupied. Delusions:no overt delusional content reported Insight/judgment:impaired x 2 Memory/cog: alert, not oriented to place, situation, month, date. Diagnostics Vital Signs (24Hr): Vital Signs - 24 hr 01/28/21 21:15 01/29/21 06:00 01/29/21 08:47 Temperature 98.7 F 99 F Pulse Rate 81 72 72 Respiratory Rate 16 Blood Pressure 137/63 151/65 H 151/65 H Pulse Oximetry 99 97 Body Mass Index 28.0 Labs Results: 01/11/21 06:16 01/11/21 06:16 Imaging Radiology Impressions: ITS Impressions Chest X-Ray 01/24/21 09:52 IMPRESSION: Unremarkable examination. Medications Medications Current Medications Generic Name Dose Route Start Last Admin Trade Name Freq PRN Reason Stop Dose Admin Acetaminophen 650 mg 01/04/21 09:00 01/29/21 08:46 Acetaminophen 325 Mg Tablet PO 650 mg Q6H ANSHUL Administration Al Hydroxide/Mg Hydroxide 30 ml 12/22/20 14:39 Magnesium Hydrox/Alum Hydrox 30 Ml Oral.Susp PO Q6H PRN Heartburn/Nausea Amlodipine Besylate 2.5 mg 12/23/20 09:00 01/29/21 08:47 Amlodipine Besylate 2.5 Mg Tablet PO 2.5 mg DAILY ANSHUL Administration Protocol Carbidopa/Levodopa 1 tab 12/22/20 21:00 01/29/21 08:46 Carbidopa/Levodopa 25/100 Tablet PO 1 tab TID ANSHUL Administration Folic Acid 1 mg 12/23/20 09:00 01/29/21 08:46 Folic Acid 1 Mg Tablet PO 1 mg DAILY ANSHUL Administration Guaifenesin/Dextromethorphan 1 tab 01/23/21 21:14 01/24/21 00:16 Guaifenesin Dm 600/30 1 Tab Tab.Er.12h PO 1 tab BID PRN Administration Cough Hydroxyzine HCl 25 mg 12/22/20 14:39 12/25/20 20:34 Hydroxyzine Hcl 25 Mg Tablet PO 25 mg BEDTIME PRN Administration Anxiety Ibuprofen 600 mg 12/26/20 11:10 01/29/21 01:06 Ibuprofen 600 Mg Tablet PO 600 mg Q6H PRN Administration Pain, Moderate (Pain Scale 4-6 Levothyroxine Sodium 75 mcg 12/23/20 06:00 01/29/21 06:14 Levothyroxine Sodium 75 Mcg Tablet PO 75 mcg DAILY@0600 ANSHUL Administration Magnesium Hydroxide 30 ml 12/22/20 14:39 Milk Of Magnesia 30 Ml Oral.Susp PO DAILY PRN Constipation Medication 1 each 12/26/20 09:00 No Anticoagulant-Heparin Sq Ok MISCELLANE DAILY [facility] Olanzapine 10 mg 01/04/21 21:00 01/28/21 20:21 Olanzapine 10 Mg Tablet PO 10 mg BEDTIME ANSHUL Administration Trazodone HCl 50 mg 12/22/20 14:39 01/13/21 19:49 Trazodone Hcl 50 Mg Tablet PO 50 mg BEDTIME PRN Administration Insomnia Trolamine Salicylate/Aloe Vera 1 appl 01/03/21 21:00 01/28/21 20:58 Trolamine Salicylate 10%/Aloe Cream 35.4 Gm TOPICAL Not Given TID [facility] Valproic Acid 375 mg 12/26/20 15:00 01/29/21 08:47 Valproic Acid (As Sodium Salt) 250 Mg/5 Ml Solution PO 375 mg TID ANSHUL Administration Allergies Allergies Allergy/AdvReac Type Severity Reaction Status Date / Time thioridazine [From Mellaril] Allergy Unknown Unknown Verified 12/22/20 13:25 Assessment & Plan Assessment & Plan (1) Bipolar disorder: Status: Acute Code(s): F31.9 - Bipolar disorder, unspecified (2) Delirium: Status: Acute Code(s): R41.0 - Disorientation, unspecified (3) Parkinson disease: Status: Acute Code(s): G20 - Parkinson's disease Assessment and Plan: Elderly female with good social support with the history of Bipolar disorder, Parkinson's disease and admitted for acute changes on her mental status with psychotic symptoms, unable to take care of her ADL's and agitation. We have notice that the level of functioning of the patient is very low and she could be a good candidate for SNF. Plan: Keep same treatment. Refer to rehab setting no change indicated patient dysphoric withdrawn. New Depakote level, basic metabolic panel, liver function test, hemoglobin A1c level and lipid panel ordered for Saturday Greater than 50% of the session was spent on counseling and/or coordination of care Reason for contiued inpatient stay Substantial Risk for: inability to function
[2021-01-28] MEDS: OLANZapine 10 MG TABLET PO (20:21)
[2021-01-28 21:15] VITALS: BP 137/63; PULSE 81; RESP 16; TEMP 37.1; O2SAT 99
[2021-01-29] MEDS: Ibuprofen 600 MG TABLET PO (01:06)
[2021-01-29 06:00] VITALS: BP 151/65; PULSE 72; TEMP 37.2; O2SAT 97
[2021-01-29] MEDS: Levothyroxine Sodium 75 MCG TABLET PO (06:14)
--- NOTE | 2021-01-29 08:38 | HO.PSYCHPN ---
Subjective Subjective Date of Service: 01/31/21 Reason For Visit: Unspec Bipolar D/O Anxiety D/O Interim History: Pt has been much more receptive to accept care and interact with staff. She is talking more and affect appears brighter. Pt reports she is doing alright. She reports she continues to have right knee pain. She denies SI/HI. She reports she is sleeping and eating better. Per nursing, pt much more pleasant and engaging with staff- last week refused to work with PT- maybe PT can try again now that pt more agreable. Mental Status Exam Mental Status Exam Narrative: Appearance: casually groomed, fair hygiene in NAD Behavior:irritable edge, not easily engaged in interview psychomotor:no agitation nor retardation noted Speech:clear, mumbles at times, delayed response rate, minimally spontaneous Thought concrete Thought content:no overt delusional content, irritable about being bothered. Mood OK Affect: irritable edge SI:denies HI:denies VH/AH:does not appear internally preoccupied. Delusions:no overt delusional content reported Insight/judgment:impaired x 2 Memory/cog: alert, not oriented to place, situation, month, date. Diagnostics Vital Signs (24Hr): Vital Signs - 24 hr 01/30/21 18:00 01/31/21 06:00 01/31/21 08:24 Temperature 97.5 F 97.2 F Pulse Rate 88 69 69 Respiratory Rate 18 Blood Pressure 134/64 143/60 H 143/60 H Pulse Oximetry 98 99 Body Mass Index 28.0 Labs Results: 01/11/21 06:16 01/11/21 06:16 Labs: Laboratory Results - last 48 hr 01/31/21 01/31/21 07:11 07:11 Estimat Average Glucose 111 Hemoglobin A1c % 5.5 Total Bilirubin 0.2 Direct Bilirubin < 0.2 AST 5 ALT < 6 Alkaline Phosphatase 91 D Total Protein 5.3 L Albumin 3.3 L Triglycerides 108 Cholesterol 138 LDL Cholesterol, Calc 74 HDL Cholesterol 43 D Valproic Acid 37.2 L Imaging Radiology Impressions: ITS Impressions Chest X-Ray 01/24/21 09:52 IMPRESSION: Unremarkable examination. Medications Medications Current Medications Generic Name Dose Route Start Last Admin Trade Name Freq PRN Reason Stop Dose Admin Acetaminophen 650 mg 01/04/21 09:00 01/31/21 08:24 Acetaminophen 325 Mg Tablet PO 650 mg Q6H ANSHUL Administration Al Hydroxide/Mg Hydroxide 30 ml 12/22/20 14:39 Magnesium Hydrox/Alum Hydrox 30 Ml Oral.Susp PO Q6H PRN Heartburn/Nausea Amlodipine Besylate 2.5 mg 12/23/20 09:00 01/31/21 08:24 Amlodipine Besylate 2.5 Mg Tablet PO 2.5 mg DAILY ANSHUL Administration Protocol Carbidopa/Levodopa 1 tab 12/22/20 21:00 01/31/21 08:24 Carbidopa/Levodopa 25/100 Tablet PO 1 tab TID ANSHUL Administration Folic Acid 1 mg 12/23/20 09:00 01/31/21 08:24 Folic Acid 1 Mg Tablet PO 1 mg DAILY ANSHUL Administration Guaifenesin/Dextromethorphan 1 tab 01/23/21 21:14 01/24/21 00:16 Guaifenesin Dm 600/30 1 Tab Tab.Er.12h PO 1 tab BID PRN Administration Cough Hydroxyzine HCl 25 mg 12/22/20 14:39 12/25/20 20:34 Hydroxyzine Hcl 25 Mg Tablet PO 25 mg BEDTIME PRN Administration Anxiety Ibuprofen 600 mg 12/26/20 11:10 01/29/21 01:06 Ibuprofen 600 Mg Tablet PO 600 mg Q6H PRN Administration Pain, Moderate (Pain Scale 4-6 Levothyroxine Sodium 75 mcg 12/23/20 06:00 01/31/21 05:42 Levothyroxine Sodium 75 Mcg Tablet PO 75 mcg DAILY@0600 [facility] Administration Magnesium Hydroxide 30 ml 12/22/20 14:39 Milk Of Magnesia 30 Ml Oral.Susp PO DAILY PRN Constipation Medication 1 each 12/26/20 09:00 No Anticoagulant-Heparin Sq Ok MISCELLANE DAILY [facility] Olanzapine 10 mg 01/04/21 21:00 01/31/21 02:21 Olanzapine 10 Mg Tablet PO 10 mg BEDTIME ANSHUL Administration Trazodone HCl 50 mg 12/22/20 14:39 01/13/21 19:49 Trazodone Hcl 50 Mg Tablet PO 50 mg BEDTIME PRN Administration Insomnia Trolamine Salicylate/Aloe Vera 1 appl 01/03/21 21:00 01/31/21 08:31 Trolamine Salicylate 10%/Aloe Cream 35.4 Gm TOPICAL Not Given TID [facility] Valproic Acid 375 mg 12/26/20 15:00 01/31/21 08:24 Valproic Acid (As Sodium Salt) 250 Mg/5 Ml Solution PO 375 mg TID ANSHUL Administration Allergies Allergies Allergy/AdvReac Type Severity Reaction Status Date / Time thioridazine [From Mellaril] Allergy Unknown Unknown Verified 12/22/20 13:25 Assessment & Plan Assessment & Plan (1) Bipolar disorder: Status: Acute Code(s): F31.9 - Bipolar disorder, unspecified (2) Delirium: Status: Acute Code(s): R41.0 - Disorientation, unspecified (3) Parkinson disease: Status: Acute Code(s): G20 - Parkinson's disease Assessment and Plan: Elderly female with good social support with the history of Bipolar disorder, Parkinson's disease and admitted for acute changes on her mental status with psychotic symptoms, unable to take care of her ADL's and agitation. We have notice that the level of functioning of the patient is very low and she could be a good candidate for SNF. Plan: Keep same treatment. Refer to rehab setting no change indicated patient dysphoric withdrawn. New Depakote level, basic metabolic panel, liver function test, hemoglobin A1c level and lipid panel ordered for Saturday Greater than 50% of the session was spent on counseling and/or coordination of care Reason for contiued inpatient stay Substantial Risk for: inability to function
[2021-01-29] MEDS: Folic Acid 1 MG TABLET PO (08:46)
[2021-01-29] MEDS: Carbidopa/Levodopa 25/100 TABLET 1 TAB PO ×3 (08:46→22:05)
[2021-01-29] MEDS: Acetaminophen 325 MG TABLET 650 MG PO ×3 (08:46→22:05)
[2021-01-29 08:47] VITALS: BP 151/65; PULSE 72
[2021-01-29] MEDS: amLODIPine Besylate 2.5 MG TABLET PO (08:47)
[2021-01-29 18:00] VITALS: BP 114/60; PULSE 76; RESP 16; TEMP 36.8; O2SAT 99
[2021-01-29] MEDS: OLANZapine 10 MG TABLET PO (22:05)
[2021-01-30] MEDS: Acetaminophen 325 MG TABLET 650 MG PO ×2 (03:29→16:38)
[2021-01-30 06:00] VITALS: BP 125/61; PULSE 86; TEMP 36.8; O2SAT 99
[2021-01-30] MEDS: Levothyroxine Sodium 75 MCG TABLET PO (06:56)
[2021-01-30] MEDS: amLODIPine Besylate 2.5 MG TABLET PO (07:51)
[2021-01-30] MEDS: Carbidopa/Levodopa 25/100 TABLET 1 TAB PO ×3 (07:51→20:22)
[2021-01-30] MEDS: Folic Acid 1 MG TABLET PO (07:51)
--- NOTE | 2021-01-30 08:38 | P.PNPSI_ITS ---
Subjective Subjective Date of Service: 01/31/21 Reason For Visit: Unspec Bipolar D/O Anxiety D/O Interim History: Pt has been much more receptive to accept care and interact with staff. She is talking more and affect appears brighter. Pt reports she is doing alright. She reports she continues to have right knee pain. She denies SI/HI. She reports she is sleeping and eating better. Per nursing, pt much more pleasant and engaging with staff- last week refused to work with PT- maybe PT can try again now that pt more agreable. Mental Status Exam Mental Status Exam Narrative: Appearance: casually groomed, fair hygiene in NAD Behavior:irritable edge, not easily engaged in interview psychomotor:no agitation nor retardation noted Speech:clear, mumbles at times, delayed response rate, minimally spontaneous Thought concrete Thought content:no overt delusional content, irritable about being bothered. Mood OK Affect: irritable edge SI:denies HI:denies VH/AH:does not appear internally preoccupied. Delusions:no overt delusional content reported Insight/judgment:impaired x 2 Memory/cog: alert, not oriented to place, situation, month, date. Diagnostics Vital Signs (24Hr): Vital Signs - 24 hr 01/30/21 18:00 01/31/21 06:00 01/31/21 08:24 Temperature 97.5 F 97.2 F Pulse Rate 88 69 69 Respiratory Rate 18 Blood Pressure 134/64 143/60 H 143/60 H Pulse Oximetry 98 99 Body Mass Index 28.0 Labs Results: 01/11/21 06:16 01/11/21 06:16 Labs: Laboratory Results - last 48 hr 01/31/21 01/31/21 07:11 07:11 Estimat Average Glucose 111 Hemoglobin A1c % 5.5 Total Bilirubin 0.2 Direct Bilirubin < 0.2 AST 5 ALT < 6 Alkaline Phosphatase 91 D Total Protein 5.3 L Albumin 3.3 L Triglycerides 108 Cholesterol 138 LDL Cholesterol, Calc 74 HDL Cholesterol 43 D Valproic Acid 37.2 L Imaging Radiology Impressions: ITS Impressions Chest X-Ray 01/24/21 09:52 IMPRESSION: Unremarkable examination. Medications Medications Current Medications Generic Name Dose Route Start Last Admin Trade Name Freq PRN Reason Stop Dose Admin Acetaminophen 650 mg 01/04/21 09:00 01/31/21 08:24 Acetaminophen 325 Mg Tablet PO 650 mg Q6H ANSHUL Administration Al Hydroxide/Mg Hydroxide 30 ml 12/22/20 14:39 Magnesium Hydrox/Alum Hydrox 30 Ml Oral.Susp PO Q6H PRN Heartburn/Nausea Amlodipine Besylate 2.5 mg 12/23/20 09:00 01/31/21 08:24 Amlodipine Besylate 2.5 Mg Tablet PO 2.5 mg DAILY ANSHUL Administration Protocol Carbidopa/Levodopa 1 tab 12/22/20 21:00 01/31/21 08:24 Carbidopa/Levodopa 25/100 Tablet PO 1 tab TID ANSHUL Administration Folic Acid 1 mg 12/23/20 09:00 01/31/21 08:24 Folic Acid 1 Mg Tablet PO 1 mg DAILY ANSHUL Administration Guaifenesin/Dextromethorphan 1 tab 01/23/21 21:14 01/24/21 00:16 Guaifenesin Dm 600/30 1 Tab Tab.Er.12h PO 1 tab BID PRN Administration Cough Hydroxyzine HCl 25 mg 12/22/20 14:39 12/25/20 20:34 Hydroxyzine Hcl 25 Mg Tablet PO 25 mg BEDTIME PRN Administration Anxiety Ibuprofen 600 mg 12/26/20 11:10 01/29/21 01:06 Ibuprofen 600 Mg Tablet PO 600 mg Q6H PRN Administration Pain, Moderate (Pain Scale 4-6 Levothyroxine Sodium 75 mcg 12/23/20 06:00 01/31/21 05:42 Levothyroxine Sodium 75 Mcg Tablet PO 75 mcg DAILY@0600 [facility] Administration Magnesium Hydroxide 30 ml 12/22/20 14:39 Milk Of Magnesia 30 Ml Oral.Susp PO DAILY PRN Constipation Medication 1 each 12/26/20 09:00 No Anticoagulant-Heparin Sq Ok MISCELLANE DAILY [facility] Olanzapine 10 mg 01/04/21 21:00 01/31/21 02:21 Olanzapine 10 Mg Tablet PO 10 mg BEDTIME ANSHUL Administration Trazodone HCl 50 mg 12/22/20 14:39 01/13/21 19:49 Trazodone Hcl 50 Mg Tablet PO 50 mg BEDTIME PRN Administration Insomnia Trolamine Salicylate/Aloe Vera 1 appl 01/03/21 21:00 01/31/21 08:31 Trolamine Salicylate 10%/Aloe Cream 35.4 Gm TOPICAL Not Given TID [facility] Valproic Acid 375 mg 12/26/20 15:00 01/31/21 08:24 Valproic Acid (As Sodium Salt) 250 Mg/5 Ml Solution PO 375 mg TID ANSHUL Administration Allergies Allergies Allergy/AdvReac Type Severity Reaction Status Date / Time thioridazine [From Mellaril] Allergy Unknown Unknown Verified 12/22/20 13:25 Assessment & Plan Assessment & Plan (1) Bipolar disorder: Status: Acute Code(s): F31.9 - Bipolar disorder, unspecified (2) Delirium: Status: Acute Code(s): R41.0 - Disorientation, unspecified (3) Parkinson disease: Status: Acute Code(s): G20 - Parkinson's disease Assessment and Plan: Elderly female with good social support with the history of Bipolar disorder, Parkinson's disease and admitted for acute changes on her mental status with psychotic symptoms, unable to take care of her ADL's and agitation. We have notice that the level of functioning of the patient is very low and she could be a good candidate for SNF. Plan: Keep same treatment. Refer to rehab setting no change indicated patient dysphoric withdrawn. New Depakote level, basic metabolic panel, liver function test, hemoglobin A1c level and lipid panel ordered for Saturday Greater than 50% of the session was spent on counseling and/or coordination of care Reason for contiued inpatient stay Substantial Risk for: inability to function
[2021-01-30 18:00] VITALS: BP 134/64; PULSE 88; RESP 18; TEMP 36.4; O2SAT 98
[2021-01-31] MEDS: OLANZapine 10 MG TABLET PO ×2 (02:21→20:36)
[2021-01-31] MEDS: Levothyroxine Sodium 75 MCG TABLET PO (05:42)
[2021-01-31 06:00] VITALS: BP 143/60; PULSE 69; TEMP 36.2; O2SAT 99
[2021-01-31 07:43] LABS: Alanine Aminotransferase < 6 U/L (0-31); Albumin Level 3.3 g/dL (3.5-5.0); Alkaline Phosphatase 91 U/L (39-117); Aspartate Amino Transferase 5 U/L (5-31); Bilirubin Direct < 0.2 mg/dL (0.0-0.5); Bilirubin Total 0.2 mg/dL (0.0-1.0); Cholesterol 138 mg/dL; HDL Cholesterol 43 mg/dL; LDL Cholesterol Calculated 74 mg/dl; Total Protein 5.3 g/dL (6.5-8.0); Triglycerides 108 mg/dL
[2021-01-31 07:57] LABS: Estimated Average Glucose 111 mg/dL; Hemoglobin A1c % 5.5 %
[2021-01-31 08:20] LABS: Valproate 37.2 mcg/mL (50.0-100.0)
[2021-01-31 08:24] VITALS: BP 143/60; PULSE 69
[2021-01-31] MEDS: Carbidopa/Levodopa 25/100 TABLET 1 TAB PO ×3 (08:24→20:36)
[2021-01-31] MEDS: Acetaminophen 325 MG TABLET 650 MG PO ×2 (08:24→15:37)
[2021-01-31] MEDS: amLODIPine Besylate 2.5 MG TABLET PO (08:24)
[2021-01-31] MEDS: Folic Acid 1 MG TABLET PO (08:24)
--- NOTE | 2021-01-31 11:24 | HO.PSYCHPN ---
Subjective Subjective Date of Service: 01/31/21 Reason For Visit: Unspec Bipolar D/O Anxiety D/O Subjective Notes: Conditional Voluntary Interim History: The nursing staff has reported the patient has been continent, she showed full affect and she is in a good mood. She was seen on the hallway walking with her Merry Walker and she was talking appropriate to peers and staff. On interview, the patient denies new symptoms and she states that she is in a good mood. We will have a family meeting soon to discuss discharge planning and options seeing severe lability of female beds in the snf system is very small. Medication Compliance: Yes Side effects from medications: No Attending Groups: Intermittent Review of Systems Acute medical concerns: No Medical Review of Systems: unchanged Mental Status Exam Mental Status Exam Patient Appearance: Well Grooomed Patient Orientation: Person Level of Consciousness: Awake Patient Behavior: Cooperative Mood Description: Calm Affect Description: Appropriate Patient Cognition Impaired: Yes Ability to Follow Directions: Good Speech Pattern: Clear Hallucinations: None Delusions: Not Present Thought Process: Goal Oriented and Linear Thought Content: positive for Intact Judgement: Fair Diagnostics Vital Signs (24Hr): Vital Signs - 24 hr 01/30/21 18:00 01/31/21 06:00 01/31/21 08:24 Temperature 97.5 F 97.2 F Pulse Rate 88 69 69 Respiratory Rate 18 Blood Pressure 134/64 143/60 H 143/60 H Pulse Oximetry 98 99 Body Mass Index 28.0 Labs Results: 01/11/21 06:16 01/11/21 06:16 Labs: Laboratory Results - last 48 hr 01/31/21 01/31/21 07:11 07:11 Estimat Average Glucose 111 Hemoglobin A1c % 5.5 Total Bilirubin 0.2 Direct Bilirubin < 0.2 AST 5 ALT < 6 Alkaline Phosphatase 91 D Total Protein 5.3 L Albumin 3.3 L Triglycerides 108 Cholesterol 138 LDL Cholesterol, Calc 74 HDL Cholesterol 43 D Valproic Acid 37.2 L Imaging Radiology Impressions: ITS Impressions Chest X-Ray 01/24/21 09:52 IMPRESSION: Unremarkable examination. Medications Medications Current Medications Generic Name Dose Route Start Last Admin Trade Name Freq PRN Reason Stop Dose Admin Acetaminophen 650 mg 01/04/21 09:00 01/31/21 08:24 Acetaminophen 325 Mg Tablet PO 650 mg Q6H ANSHUL Administration Al Hydroxide/Mg Hydroxide 30 ml 12/22/20 14:39 Magnesium Hydrox/Alum Hydrox 30 Ml Oral.Susp PO Q6H PRN Heartburn/Nausea Amlodipine Besylate 2.5 mg 12/23/20 09:00 01/31/21 08:24 Amlodipine Besylate 2.5 Mg Tablet PO 2.5 mg DAILY ANSHUL Administration Protocol Carbidopa/Levodopa 1 tab 12/22/20 21:00 01/31/21 08:24 Carbidopa/Levodopa 25/100 Tablet PO 1 tab TID ANSHUL Administration Folic Acid 1 mg 12/23/20 09:00 01/31/21 08:24 Folic Acid 1 Mg Tablet PO 1 mg DAILY ANSHUL Administration Guaifenesin/Dextromethorphan 1 tab 01/23/21 21:14 01/24/21 00:16 Guaifenesin Dm 600/30 1 Tab Tab.Er.12h PO 1 tab BID PRN Administration Cough Hydroxyzine HCl 25 mg 12/22/20 14:39 12/25/20 20:34 Hydroxyzine Hcl 25 Mg Tablet PO 25 mg BEDTIME PRN Administration Anxiety Ibuprofen 600 mg 12/26/20 11:10 01/29/21 01:06 Ibuprofen 600 Mg Tablet PO 600 mg Q6H PRN Administration Pain, Moderate (Pain Scale 4-6 Levothyroxine Sodium 75 mcg 12/23/20 06:00 01/31/21 05:42 Levothyroxine Sodium 75 Mcg Tablet PO 75 mcg DAILY@0600 [facility] Administration Magnesium Hydroxide 30 ml 12/22/20 14:39 Milk Of Magnesia 30 Ml Oral.Susp PO DAILY PRN Constipation Medication 1 each 12/26/20 09:00 No Anticoagulant-Heparin Sq Ok MISCELLANE DAILY [facility] Olanzapine 10 mg 01/04/21 21:00 01/31/21 02:21 Olanzapine 10 Mg Tablet PO 10 mg BEDTIME ANSHUL Administration Trazodone HCl 50 mg 12/22/20 14:39 01/13/21 19:49 Trazodone Hcl 50 Mg Tablet PO 50 mg BEDTIME PRN Administration Insomnia Trolamine Salicylate/Aloe Vera 1 appl 01/03/21 21:00 01/31/21 08:31 Trolamine Salicylate 10%/Aloe Cream 35.4 Gm TOPICAL Not Given TID [facility] Valproic Acid 375 mg 12/26/20 15:00 01/31/21 08:24 Valproic Acid (As Sodium Salt) 250 Mg/5 Ml Solution PO 375 mg TID ANSHUL Administration Allergies Allergies Allergy/AdvReac Type Severity Reaction Status Date / Time thioridazine [From Mellaril] Allergy Unknown Unknown Verified 12/22/20 13:25 Assessment & Plan Assessment & Plan (1) Bipolar disorder: Status: Acute Code(s): F31.9 - Bipolar disorder, unspecified (2) Delirium: Status: Acute Code(s): R41.0 - Disorientation, unspecified (3) Parkinson disease: Status: Acute Code(s): G20 - Parkinson's disease Assessment and Plan: Elderly female with good social support with the history of Bipolar disorder, Parkinson's disease and admitted for acute changes on her mental status with psychotic symptoms, unable to take care of her ADL's and agitation. We have notice that the level of functioning of the patient is very low and she could be a good candidate for SNF. Plan: Keep same treatment. Refer to rehab setting no change indicated patient dysphoric withdrawn. New Depakote level, basic metabolic panel, liver function test, hemoglobin A1c level and lipid panel ordered for Saturday Greater than 50% of the session was spent on counseling and/or coordination of care Reason for contiued inpatient stay Substantial Risk for: inability to function, stable for discharge and med/psych decompensation
[2021-01-31 18:00] VITALS: BP 131/61; PULSE 62; TEMP 36.9; O2SAT 98
[2021-02-01] MEDS: Acetaminophen 325 MG TABLET 650 MG PO ×3 (03:14→21:06)
[2021-02-01] MEDS: Levothyroxine Sodium 75 MCG TABLET PO (04:58)
[2021-02-01 05:05] VITALS: BP 110/61; PULSE 62; RESP 19; TEMP 36.4; O2SAT 99
[2021-02-01 07:30] VITALS: BP 157/67; PULSE 71; RESP 16; TEMP 36.2; O2SAT 99
[2021-02-01 09:13] VITALS: BP 157/67; PULSE 71
[2021-02-01] MEDS: amLODIPine Besylate 2.5 MG TABLET PO (09:13)
[2021-02-01] MEDS: Carbidopa/Levodopa 25/100 TABLET 1 TAB PO ×3 (09:14→21:06)
[2021-02-01] MEDS: Folic Acid 1 MG TABLET PO (09:14)
--- NOTE | 2021-02-01 15:05 | P.PNPSI_ITS ---
Subjective Subjective Date of Service: 02/01/21 Reason For Visit: Unspec Bipolar D/O Anxiety D/O Subjective Notes: Conditional Voluntary Interim History: The nursing staff has reported the patient relates by herself, she goes to the bathroom and she pulls out her own clothes. She was seen with a better mood and pleasant with peers and staff. The social sciences department chair reported that she has spoken with her and he is willing to take her back with services. Possible discharge for next Saturday. On interview, the patient denies new symptoms she is pleasantly confused Review of Systems Acute medical concerns: No Medical Review of Systems: unchanged Mental Status Exam Mental Status Exam Patient Appearance: Well Grooomed Patient Orientation: Person Level of Consciousness: Awake Patient Behavior: Cooperative and Passive Mood Description: Appropriate Affect Description: Constricted Patient Cognition Impaired: Yes Ability to Follow Directions: Good Speech Pattern: Clear Hallucinations: None Thought Process: Evasive Thought Content: positive for Poverty of Content Judgement: Fair Diagnostics Vital Signs (24Hr): Vital Signs - 24 hr 01/31/21 18:00 02/01/21 05:05 02/01/21 07:30 Temperature 98.4 F 97.6 F 97.1 F Pulse Rate 62 62 71 Respiratory Rate 19 16 Blood Pressure 131/61 110/61 157/67 H Pulse Oximetry 98 99 99 02/01/21 09:13 Temperature Pulse Rate 71 Respiratory Rate Blood Pressure 157/67 H Pulse Oximetry Body Mass Index 28.0 Labs Results: 01/11/21 06:16 01/11/21 06:16 Labs: Laboratory Results - last 48 hr 01/31/21 01/31/21 07:11 07:11 Estimat Average Glucose 111 Hemoglobin A1c % 5.5 Total Bilirubin 0.2 Direct Bilirubin < 0.2 AST 5 ALT < 6 Alkaline Phosphatase 91 D Total Protein 5.3 L Albumin 3.3 L Triglycerides 108 Cholesterol 138 LDL Cholesterol, Calc 74 HDL Cholesterol 43 D Valproic Acid 37.2 L Imaging Radiology Impressions: ITS Impressions Chest X-Ray 01/24/21 09:52 IMPRESSION: Unremarkable examination. Medications Medications Current Medications Generic Name Dose Route Start Last Admin Trade Name Freq PRN Reason Stop Dose Admin Acetaminophen 650 mg 01/04/21 09:00 02/01/21 15:01 Acetaminophen 325 Mg Tablet PO Not Given Q6H ANSHUL Al Hydroxide/Mg Hydroxide 30 ml 12/22/20 14:39 Magnesium Hydrox/Alum Hydrox 30 Ml Oral.Susp PO Q6H PRN Heartburn/Nausea Amlodipine Besylate 2.5 mg 12/23/20 09:00 02/01/21 09:13 Amlodipine Besylate 2.5 Mg Tablet PO 2.5 mg DAILY ANSHUL Administration Protocol Carbidopa/Levodopa 1 tab 12/22/20 21:00 02/01/21 14:50 Carbidopa/Levodopa 25/100 Tablet PO 1 tab TID ANSHUL Administration Folic Acid 1 mg 12/23/20 09:00 02/01/21 09:14 Folic Acid 1 Mg Tablet PO 1 mg DAILY ANSHUL Administration Guaifenesin/Dextromethorphan 1 tab 01/23/21 21:14 01/24/21 00:16 Guaifenesin Dm 600/30 1 Tab Tab.Er.12h PO 1 tab BID PRN Administration Cough Hydroxyzine HCl 25 mg 12/22/20 14:39 12/25/20 20:34 Hydroxyzine Hcl 25 Mg Tablet PO 25 mg BEDTIME PRN Administration Anxiety Ibuprofen 600 mg 12/26/20 11:10 01/29/21 01:06 Ibuprofen 600 Mg Tablet PO 600 mg Q6H PRN Administration Pain, Moderate (Pain Scale 4-6 Levothyroxine Sodium 75 mcg 12/23/20 06:00 02/01/21 04:58 Levothyroxine Sodium 75 Mcg Tablet PO 75 mcg DAILY@0600 [facility] Administration Magnesium Hydroxide 30 ml 12/22/20 14:39 Milk Of Magnesia 30 Ml Oral.Susp PO DAILY PRN Constipation Medication 1 each 12/26/20 09:00 No Anticoagulant-Heparin Sq Ok MISCELLANE DAILY [facility] Olanzapine 10 mg 01/04/21 21:00 01/31/21 20:36 Olanzapine 10 Mg Tablet PO 10 mg BEDTIME ANSHUL Administration Trazodone HCl 50 mg 12/22/20 14:39 01/13/21 19:49 Trazodone Hcl 50 Mg Tablet PO 50 mg BEDTIME PRN Administration Insomnia Trolamine Salicylate/Aloe Vera 1 appl 01/03/21 21:00 02/01/21 14:50 Trolamine Salicylate 10%/Aloe Cream 35.4 Gm TOPICAL Not Given TID [facility] Valproic Acid 375 mg 12/26/20 15:00 02/01/21 14:50 Valproic Acid (As Sodium Salt) 250 Mg/5 Ml Solution PO 375 mg TID ANSHUL Administration Allergies Allergies Allergy/AdvReac Type Severity Reaction Status Date / Time thioridazine [From Mellaril] Allergy Unknown Unknown Verified 12/22/20 13:25 Assessment & Plan Assessment & Plan (1) Bipolar disorder: Status: Acute Code(s): F31.9 - Bipolar disorder, unspecified (2) Delirium: Status: Acute Code(s): R41.0 - Disorientation, unspecified (3) Parkinson disease: Status: Acute Code(s): G20 - Parkinson's disease Assessment and Plan: Elderly female with good social support with the history of Bipolar disorder, Parkinson's disease and admitted for acute changes on her mental status with psychotic symptoms, unable to take care of her ADL's and agitation. We have notice that the level of functioning of the patient is very low and she could be a good candidate for SNF. Plan: Keep same treatment. Refer to rehab setting no change indicated patient dysphoric withdrawn. New Depakote level, basic metabolic panel, liver function test, hemoglobin A1c level and lipid panel ordered for Saturday and that came up with a count new abnormalities. Possible discharge for next Saturday. Greater than 50% of the session was spent on counseling and/or coordination of c are Reason for contiued inpatient stay Substantial Risk for: inability to function, rapid decompensation and med/psych decompensation
[2021-02-01 17:30] VITALS: BP 127/68; PULSE 73; RESP 17; TEMP 36.4; O2SAT 99
[2021-02-01 18:00] VITALS: BP 119/67; PULSE 74; RESP 16; TEMP 36.9; O2SAT 98
[2021-02-01] MEDS: OLANZapine 10 MG TABLET PO (21:06)
[2021-02-02] MEDS: Acetaminophen 325 MG TABLET 650 MG PO ×4 (04:27→20:29)
[2021-02-02] MEDS: Levothyroxine Sodium 75 MCG TABLET PO (05:13)
[2021-02-02 08:00] VITALS: BP 135/75; PULSE 78; RESP 18
[2021-02-02 09:21] VITALS: BP 130/70; PULSE 76
[2021-02-02] MEDS: amLODIPine Besylate 2.5 MG TABLET PO (09:21)
[2021-02-02] MEDS: Folic Acid 1 MG TABLET PO (09:21)
[2021-02-02] MEDS: Carbidopa/Levodopa 25/100 TABLET 1 TAB PO ×3 (09:21→19:29)
--- NOTE | 2021-02-02 14:36 | HO.PSYCHPN ---
Subjective Subjective Date of Service: 02/02/21 Reason For Visit: Unspec Bipolar D/O Anxiety D/O Subjective Notes: Conditional Voluntary Interim History: The nursing staff reported the patient has been more cooperative with care. The drug abuse social worker has talked with the patient and her that she was doing very fine, she was able to hold a conversation with peers and staff. We discussed discharge planning with her and he is willing to take her back with services. Private pay for help was provided. On interview, the patient was pleasant and cooperative when she is excited to get discharged over the weekend. Medication Compliance: Yes Side effects from medications: No Attending Groups: Intermittent Review of Systems Acute medical concerns: No Medical Review of Systems: unchanged Mental Status Exam Mental Status Exam Patient Appearance: Well Grooomed Patient Orientation: Person Level of Consciousness: Awake Patient Behavior: Appropriate Mood Description: Calm Affect Description: Calm Patient Cognition Impaired: Yes Ability to Follow Directions: Good Speech Pattern: Clear Hallucinations: None Delusions: Not Present Thought Process: Distracted Thought Content: positive for Thought Blocking Judgement: Fair Diagnostics Vital Signs (24Hr): Vital Signs - 24 hr 02/01/21 17:30 02/01/21 18:00 02/02/21 08:00 Temperature 97.6 F 98.5 F Pulse Rate 73 74 78 Respiratory Rate 17 16 18 Blood Pressure 127/68 119/67 135/75 Pulse Oximetry 99 98 02/02/21 09:21 Temperature Pulse Rate 76 Respiratory Rate Blood Pressure 130/70 Pulse Oximetry Body Mass Index 28.0 Labs Results: 01/11/21 06:16 01/11/21 06:16 Imaging Radiology Impressions: ITS Impressions Chest X-Ray 01/24/21 09:52 IMPRESSION: Unremarkable examination. Medications Medications Current Medications Generic Name Dose Route Start Last Admin Trade Name Freq PRN Reason Stop Dose Admin Acetaminophen 650 mg 01/04/21 09:00 02/02/21 14:26 Acetaminophen 325 Mg Tablet PO 650 mg Q6H ANSHUL Administration Al Hydroxide/Mg Hydroxide 30 ml 12/22/20 14:39 Magnesium Hydrox/Alum Hydrox 30 Ml Oral.Susp PO Q6H PRN Heartburn/Nausea Amlodipine Besylate 2.5 mg 12/23/20 09:00 02/02/21 09:21 Amlodipine Besylate 2.5 Mg Tablet PO 2.5 mg DAILY ANSHUL Administration Protocol Carbidopa/Levodopa 1 tab 12/22/20 21:00 02/02/21 14:27 Carbidopa/Levodopa 25/100 Tablet PO 1 tab TID ANSHUL Administration Folic Acid 1 mg 12/23/20 09:00 02/02/21 09:21 Folic Acid 1 Mg Tablet PO 1 mg DAILY ANSHUL Administration Guaifenesin/Dextromethorphan 1 tab 01/23/21 21:14 01/24/21 00:16 Guaifenesin Dm 600/30 1 Tab Tab.Er.12h PO 1 tab BID PRN Administration Cough Hydroxyzine HCl 25 mg 12/22/20 14:39 12/25/20 20:34 Hydroxyzine Hcl 25 Mg Tablet PO 25 mg BEDTIME PRN Administration Anxiety Ibuprofen 600 mg 12/26/20 11:10 01/29/21 01:06 Ibuprofen 600 Mg Tablet PO 600 mg Q6H PRN Administration Pain, Moderate (Pain Scale 4-6 Levothyroxine Sodium 75 mcg 12/23/20 06:00 02/02/21 05:13 Levothyroxine Sodium 75 Mcg Tablet PO 75 mcg DAILY@0600 ANSHUL Administration Magnesium Hydroxide 30 ml 12/22/20 14:39 Milk Of Magnesia 30 Ml Oral.Susp PO DAILY PRN Constipation Medication 1 each 12/26/20 09:00 No Anticoagulant-Heparin Sq Ok MISCELLANE DAILY ANSHUL Olanzapine 10 mg 01/04/21 21:00 02/01/21 21:06 Olanzapine 10 Mg Tablet PO 10 mg BEDTIME ANSHUL Administration Trazodone HCl 50 mg 12/22/20 14:39 01/13/21 19:49 Trazodone Hcl 50 Mg Tablet PO 50 mg BEDTIME PRN Administration Insomnia Trolamine Salicylate/Aloe Vera 1 appl 01/03/21 21:00 02/02/21 14:26 Trolamine Salicylate 10%/Aloe Cream 35.4 Gm TOPICAL Not Given TID ANSHUL Valproic Acid 375 mg 12/26/20 15:00 02/02/21 14:28 Valproic Acid (As Sodium Salt) 250 Mg/5 Ml Solution PO 375 mg TID ANSHUL Administration Allergies Allergies Allergy/AdvReac Type Severity Reaction Status Date / Time thioridazine [From Mellaril] Allergy Unknown Unknown Verified 12/22/20 13:25 Assessment & Plan Assessment & Plan (1) Bipolar disorder: Status: Acute Code(s): F31.9 - Bipolar disorder, unspecified (2) Delirium: Status: Acute Code(s): R41.0 - Disorientation, unspecified (3) Parkinson disease: Status: Acute Code(s): G20 - Parkinson's disease Assessment and Plan: Elderly female with good social support with the history of Bipolar disorder, Parkinson's disease and admitted for acute changes on her mental status with psychotic symptoms, unable to take care of her ADL's and agitation. We have notice that the level of functioning of the patient is very low and she could be a good candidate for SNF. Plan: Keep same treatment. Refer to rehab setting no change indicated patient dysphoric withdrawn. New Depakote level, basic metabolic panel, liver function test, hemoglobin A1c level and lipid panel ordered for Saturday and that came up with a count new abnormalities. Possible discharge for next Saturday. Greater than 50% of the session was spent on counseling and/or coordination of care Reason for contiued inpatient stay Substantial Risk for: inability to function, rapid decompensation and med/psych decompensation
[2021-02-02] MEDS: OLANZapine 10 MG TABLET PO (19:28)
[2021-02-02 20:51] VITALS: BP 122/59; PULSE 78; RESP 16; TEMP 37.4; O2SAT 99
[2021-02-02] MEDS: Ibuprofen 600 MG TABLET PO (22:43)
[2021-02-03] MEDS: Acetaminophen 325 MG TABLET 650 MG PO ×3 (03:16→20:32)
[2021-02-03] MEDS: Levothyroxine Sodium 75 MCG TABLET PO (05:40)
[2021-02-03 06:00] VITALS: BP 135/56; PULSE 68; RESP 18; TEMP 36.1; O2SAT 96
[2021-02-03 08:14] VITALS: BP 135/56; PULSE 68
[2021-02-03] MEDS: amLODIPine Besylate 2.5 MG TABLET PO (08:14)
[2021-02-03] MEDS: Carbidopa/Levodopa 25/100 TABLET 1 TAB PO ×3 (08:14→20:33)
[2021-02-03] MEDS: Folic Acid 1 MG TABLET PO (08:14)
--- NOTE | 2021-02-03 13:08 | HO.PSYCHPN ---
Subjective Subjective Date of Service: 02/03/21 Reason For Visit: Unspec Bipolar D/O Anxiety D/O Subjective Notes: Conditional Voluntary Interim History: The nursing staff reported the patient has been cooperative with care, fully compliant with treatment. Yesterday, her reported that the patient has never being better before her mood. She presented a full affect. The patient will be discharged tomorrow to her . Mental Status Exam Mental Status Exam Patient Appearance: Well Grooomed Patient Orientation: Person Level of Consciousness: Awake Patient Behavior: Appropriate Mood Description: Constricted Affect Description: Constricted Patient Cognition Impaired: Yes Ability to Follow Directions: Good Speech Pattern: Clear Hallucinations: None Thought Process: Intact Thought Content: positive for Poverty of Content Judgement: Fair Diagnostics Vital Signs (24Hr): Vital Signs - 24 hr 02/02/21 20:51 02/03/21 06:00 02/03/21 08:14 Temperature 99.4 F 97 F Pulse Rate 78 68 68 Respiratory Rate 16 18 Blood Pressure 122/59 L 135/56 L 135/56 L Pulse Oximetry 99 96 Body Mass Index 28.0 Labs Results: 01/11/21 06:16 01/11/21 06:16 Imaging Radiology Impressions: ITS Impressions Chest X-Ray 01/24/21 09:52 IMPRESSION: Unremarkable examination. Medications Medications Current Medications Generic Name Dose Route Start Last Admin Trade Name Saadq PRN Reason Stop Dose Admin Acetaminophen 650 mg 01/04/21 09:00 02/03/21 08:12 Acetaminophen 325 Mg Tablet PO Not Given Q6H ANSHUL Al Hydroxide/Mg Hydroxide 30 ml 12/22/20 14:39 Magnesium Hydrox/Alum Hydrox 30 Ml Oral.Susp PO Q6H PRN Heartburn/Nausea Amlodipine Besylate 2.5 mg 12/23/20 09:00 02/03/21 08:14 Amlodipine Besylate 2.5 Mg Tablet PO 2.5 mg DAILY ANSHUL Administration Protocol Carbidopa/Levodopa 1 tab 12/22/20 21:00 02/03/21 08:14 Carbidopa/Levodopa 25/100 Tablet PO 1 tab TID ANSHUL Administration Folic Acid 1 mg 12/23/20 09:00 02/03/21 08:14 Folic Acid 1 Mg Tablet PO 1 mg DAILY ANSHUL Administration Ibuprofen 600 mg 12/26/20 11:10 02/02/21 22:43 Ibuprofen 600 Mg Tablet PO 600 mg Q6H PRN Administration Pain, Moderate (Pain Scale 4-6 Levothyroxine Sodium 75 mcg 12/23/20 06:00 02/03/21 05:40 Levothyroxine Sodium 75 Mcg Tablet PO 75 mcg DAILY@0600 ANSHUL Administration Medication 1 each 12/26/20 09:00 No Anticoagulant-Heparin Sq Ok MISCELLANE DAILY ANSHUL Olanzapine 10 mg 01/04/21 21:00 02/02/21 19:28 Olanzapine 10 Mg Tablet PO 10 mg BEDTIME ANSHUL Administration Trazodone HCl 50 mg 12/22/20 14:39 01/13/21 19:49 Trazodone Hcl 50 Mg Tablet PO 50 mg BEDTIME PRN Administration Insomnia Trolamine Salicylate/Aloe Vera 1 appl 01/03/21 21:00 02/03/21 10:28 Trolamine Salicylate 10%/Aloe Cream 35.4 Gm TOPICAL Not Given TID ANSHUL Valproic Acid 375 mg 12/26/20 15:00 02/03/21 08:08 Valproic Acid (As Sodium Salt) 250 Mg/5 Ml Solution PO 375 mg TID ANSHUL Administration Allergies Allergies Allergy/AdvReac Type Severity Reaction Status Date / Time thioridazine [From Mellaril] Allergy Unknown Unknown Verified 12/22/20 13:25 Assessment & Plan Assessment & Plan (1) Bipolar disorder: Status: Acute Code(s): F31.9 - Bipolar disorder, unspecified (2) Delirium: Status: Acute Code(s): R41.0 - Disorientation, unspecified (3) Parkinson disease: Status: Acute Code(s): G20 - Parkinson's disease Assessment and Plan: Elderly female with good social support with the history of Bipolar disorder, Parkinson's disease and admitted for acute changes on her mental status with psychotic symptoms, unable to take care of her ADL's and agitation. We have notice that the level of functioning of the patient is very low and she could be a good candidate for SNF. Plan: Keep same treatment. Refer to rehab setting no change indicated patient dysphoric withdrawn. New Depakote level, basic metabolic panel, liver function test, hemoglobin A1c level and lipid panel ordered for Saturday and that came up with a count new abnormalities. Possible discharge for next Saturday. Greater than 50% of the session was spent on counseling and/or coordination of care Reason for contiued inpatient stay Substantial Risk for: inability to function, rapid decompensation and med/psych decompensation
--- NOTE | 2021-02-03 14:36 | PM.PSYDC ---
DS: Providers Provider Date of Service: 02/04/21 Date of admission: 12/22/20 11:56 Date of discharge: 02/04/21 Primary care physician: Vu Mcgovern MD Consults: 12/22/20 10:58 Consult to Hospitalist Routine Consulting Provider: Hospitalist Reason For Exam: Direct admission 12/28/20 10:58 Consult to Hospitalist Routine Consulting Provider: Hospitalist Reason For Exam: UTI, fever, started on Augmentin 01/13/21 10:58 Consult to Hospitalist Routine Consulting Provider: Hospitalist Reason For Exam: Chronic pain on knee, pain management. DS: Diagnosis Discharge Diagnosis (1) Bipolar disorder: Status: Acute (2) Delirium: Status: Acute (3) Parkinson disease: Status: Acute DS: Medications Discharge Medications Home Medications: Home Medications Medication Instructions Recorded Confirmed Myrbetriq 25 mg PO DAILY 12/22/20 12/22/20 acetaminophen 325 mg PO Q4-6H PRN 12/22/20 12/22/20 amlodipine 5 mg PO DAILY 12/22/20 12/22/20 carbidopa-levodopa 25 - 100 mg PO TID 12/22/20 12/22/20 cholecalciferol (vitamin D3) 1,000 units PO DAILY 12/22/20 12/22/20 folic acid 1 mg PO DAILY 12/22/20 12/22/20 levothyroxine 75 mcg PO DAILY 12/22/20 12/22/20 olanzapine 5 mg PO DAILY 12/22/20 12/22/20 sodium bicarbonate 650 mg PO TID 12/22/20 12/22/20 valproic acid (as sodium salt) 250 750 mg PO BID 12/22/20 12/22/20 mg/5 mL oral solution Mental Status Exam Mental Status Exam Patient Appearance: Well Grooomed Patient Orientation: Person and Situation Level of Consciousness: Awake Patient Behavior: Talkative and Cooperative Mood Description: Calm Affect Description: Constricted Patient Cognition Impaired: Yes Ability to Follow Directions: Good Speech Pattern: Clear Hallucinations: None Delusions: Not Present Thought Process: Intact Thought Content: positive for Circumstantial Judgement: Fair Data Data Completed and Pending Completed studies during hospitalization [Text1]: 01/31/21 01/31/21 07:11 07:11 Estimat Average Glucose 111 Hemoglobin A1c % 5.5 Total Bilirubin 0.2 Direct Bilirubin < 0.2 AST 5 ALT < 6 Alkaline Phosphatase 91 D Total Protein 5.3 L Albumin 3.3 L Triglycerides 108 Cholesterol 138 LDL Cholesterol, Calc 74 HDL Cholesterol 43 D Valproic Acid 37.2 L 12/29/20 Unknown Urine clean catch - Clean Catch Midstream Urine Culture - Final No growth. Imaging Diagnostic Imaging Impressions Chest X-Ray 01/24/21 09:52 IMPRESSION: Unremarkable examination. DS: Summary Hospital Course Hospital Course: The patient is a 75-year-old female, with a long history of bipolar disorder who was admitted for disorganized behavior, unable to take care of herself and delirium. On admission the patient had a UTI that was treated aggressively with antibiotics and later, her mental status improved. The patient has chronic knee pain and she is quite limited in her functionality. For several weeks the patient has been irritable, resistant to care and with poor safety awareness. We started titrating up his Depakote up to 500 mg p.o. b.i.d. and olanzapine was titrated up to 10 mg p.o. q.h.s. to target mood lability and psychosis with good improvement. Her psych Her wants to take care of her, the patient is very limited and we discussed several discharge options, but so far, the patient and her agree to go back to the home with ancillary services. After several weeks of being treated with Depakote and Zyprexa, her mood was normal, she was a thymic and cooperative with care, as per her her mood has never been better. Since there were no safety concerns discharge planning was discussed Status at Discharge Cognitive/behavioral status at discharge: At baseline Functional status at discharge: uses cane/walker Overall status at discharge: patient is back to baseline Time Spent with Patient Time attestation: Total time spent providing and/or coordinating discharge services: Time spent: Less than 30 minutes Discharge Plan Discharge Patient Disposition: Home, Self-Care Discharge Diagnosis: Delirium [facility] - [facility]-5 Days [facility] [Other] - 1 Week (Fax DC paperwork - Attn: eGorgina Krishnamurthy [phone]) Dr. Linda Rapp (psychiatrists) [Other] - 02/15/21 10:00 am (Appointment scheduled for Thursday, February 15 @ 10 AM. Please fax discharge summer to [phone], fax number is same as phone number.) Vu Mcgovern MD [Primary Care Provider] - 1 Week (Called 's office called, informed of planned discharge tomorrow 02/04. They stated they would schedule a follow up appointment within one week of discharge. [employer] stated they would follow up with MD and call back with an appointment date. Appointment with be with Anahy Bhatti 02/07/2021 @ 2:20 ) Discharge Medications: New acetaminophen 325 mg Tablet 650 mg PO Q6H 30 Days Qty: 240 RF: 0 trazodone 50 mg Tablet 50 mg PO BEDTIME PRN (Reason: Insomnia) 30 Days Qty: 30 RF: 0 olanzapine 10 mg Tablet 10 mg PO BEDTIME 30 Days Qty: 30 RF: 0 amlodipine 2.5 mg Tablet 2.5 mg PO DAILY 30 Days Qty: 30 RF: 0 levothyroxine 75 mcg Tablet 75 mcg PO DAILY@0600 30 Days Qty: 30 RF: 0 folic acid 1 mg Tablet 1 mg PO DAILY 30 Days Qty: 30 RF: 0 ibuprofen 600 mg Tablet 600 mg PO Q6H PRN (Reason: Pain, Moderate (Pain Scale 4-6) 30 Days Qty: 90 RF: 0 carbidopa-levodopa 25-100 mg Tablet 1 tab PO TID 30 Days Qty: 90 RF: 0 Aspercreme with Aloe 10 % Cream 1 appl topical TID 30 Days Qty: 30 RF: 0 valproic acid (as sodium salt) 250 mg/5 mL (5 mL) Solution 500 mg PO BID 30 Days Qty: 600 RF: 0 Discontinued amlodipine tablet 5 mg PO DAILY RF: 0 carbidopa-levodopa tablet 25 - 100 mg PO TID RF: 0 valproic acid (as sodium salt) [Depakene] 250 mg/5 mL Solution 750 mg PO BID RF: 0 Myrbetriq tablet 25 mg PO DAILY RF: 0 acetaminophen tablet 325 mg PO Q4-6H PRN (Reason: Mild Pain (Scale Score 1-4)) RF: 0 cholecalciferol (vitamin D3) capsule 1,000 units PO DAILY RF: 0 folic acid tablet 1 mg PO DAILY RF: 0 levothyroxine tablet 75 mcg PO DAILY RF: 0 olanzapine tablet 5 mg PO DAILY RF: 0 sodium bicarbonate tablet 650 mg PO TID RF: 0 Discharge Orders: Discharge Order (Routine); Ordered 02/04/21 Ordered By: Juan F Turner Diet: advance to usual diet Activity on Discharge: As tolerated Stand Alone Forms: Patient Portal Discharge page Care Plan Goals: Care plan goals Ohri achieved in the unit Health Concerns: Continue medication treatment with her regular PCP Plan of Treatment: Medication management by psychiatrist. Continue medical treatment by PCP. Ancillary services such as [facility] and [facility] Assessment: Elderly female with a previous history of bipolar disorder, Parkinson's and hypothyroidism admitted for delirium secondary to UTI. The patient was admitted and treated with antipsychotics that helped resolved her altered mental status and psychotic symptoms. Her mood improved with a combination of Depakote and Zyprexa, currently at baseline.
[2021-02-03 18:00] VITALS: BP 134/69; PULSE 73; RESP 18; TEMP 36.6; O2SAT 99
[2021-02-03] MEDS: OLANZapine 10 MG TABLET PO (20:32)
[2021-02-04] MEDS: Acetaminophen 325 MG TABLET 650 MG PO ×2 (03:27→08:56)
[2021-02-04] MEDS: Levothyroxine Sodium 75 MCG TABLET PO (05:55)
[2021-02-04 08:52] VITALS: BP 130/61; PULSE 85; RESP 16; TEMP 36.2; O2SAT 100
[2021-02-04 08:55] VITALS: BP 130/61; PULSE 85
[2021-02-04] MEDS: amLODIPine Besylate 2.5 MG TABLET PO (08:55)
[2021-02-04] MEDS: Carbidopa/Levodopa 25/100 TABLET 1 TAB PO (08:56)
[2021-02-04] MEDS: Folic Acid 1 MG TABLET PO (08:56)
--- NOTE | 2021-02-04 11:22 | PC.NURSE ---
Patient alert and oriented x4. DC documents reviewed with patient and . Patient understood DC plans. Appointments with PCP and other providers made as well as with nursing services. DC packet and pertinent information faxed to providers. Patient appeared calm, cooperative and compliant with am care and DC. She was dressed and had bath this morning. Appetite at breakfast was good. Patient exhibited no AH/VH and denied as well. She has been interacting appropriately with staff and other patients on unit. She was escorted off floor in . was waiting with car in front of hospital.
== END 2021-02-04 11:21 | disposition home or self-care (01) | DRG 885 ==
PROVIDERS: Psychiatry & Neurology Psychiatry; Admitting Provider Psychiatry & Neurology Psychiatry; PCP Internal Medicine; Visit Provider Psychiatry & Neurology Psychiatry
DX: F31.9 Bipolar disorder, unspecified (principal); F05 Delirium due to known physiological condition; E03.9 Hypothyroidism, unspecified; N18.9 Chronic kidney disease, unspecified; I12.9 Hypertensive chronic kidney disease with stage 1 through stage 4 chronic kidney disease, or unspecified chronic kidney disease; G20 Parkinson's disease; M19.90 Unspecified osteoarthritis, unspecified site; F41.9 Anxiety disorder, unspecified; Z20.822 Contact with and (suspected) exposure to COVID-19; Z79.1 Long term (current) use of non-steroidal anti-inflammatories (NSAID); Z79.890 Hormone replacement therapy; Z79.899 Other long term (current) drug therapy
CPT/HCPCS: 36415; 71046; 80048; 80061; 80076; 80164; 81001; 81003; 82607; 82746; 82947; 83036; 84443; 85025; 85027; 87086; 87635; 97116; 97162; 99232

== ENCOUNTER 2021-02-16 14:19 | Emergency (ER) | payer MEDICARE, BC, SELFPAY ==
--- NOTE | ~2021-02-16 | CT_ITS ---
EXAMINATION: CT HEAD WITHOUT CONTRAST CT CERVICAL SPINE WITHOUT CONTRAST CLINICAL INFORMATION: Fall. COMPARISON: None. TECHNIQUE: Imaging was performed from the skull base to vertex without intravenous administration of contrast. In addition, helical noncontrast CT imaging was acquired through the cervical spine and source images were reviewed along with axial reconstructions and sagittal and coronal MPRs. [This CT examination was performed using dose optimization techniques as appropriate, variously including the following: *Automated exposure control *Adjustment of mA and/or kV according to patient size (this includes techniques or standardized protocols for targeted exams where dose is matched to indication/reason for exam; i.e. extremities or head) *Use of iterative reconstruction technique] DLP: 985 mGy-cm FINDINGS: HEAD: There is a small scalp hematoma at the posterior left vertex of the skull. There is no skull fracture. No intracranial mass, hemorrhage, or midline shift is visualized. There is generalized global volume loss. There is moderate prominence of the ventricles and the sulci . There are vascular calcifications of the internal carotid arteries bilaterally. . No extra-axial collections are identified. Small retention cyst at the superior left maxillary sinus. Mastoid air cells and middle ear cavities are normally aerated. CERVICAL SPINE: There is no evidence of acute cervical spine fracture. Vertebral bodies remain normal in height. Cervical vertebrae have normal alignment. There is multilevel degenerative spondylosis of the cervical spine with disc height narrowing and endplate spurs and facet joint arthrosis No pre- or paravertebral soft tissue abnormality is identified. Limited assessment of the lung apices is unremarkable. CT/CT cervical spine wo con IMPRESSION: 1. No acute intracranial pathology. 2. No CT evidence of acute cervical spine fracture or traumatic subluxation
[2021-02-16 14:35] VITALS: BP 156/73; BP 156/76; PULSE 75; PULSE 86; RESP 15; TEMP 36.9; O2SAT 96; O2SAT 97; BMI 27.4
--- NOTE | 2021-02-16 14:45 | ECG_ITS ---
Test Reason : FALL Blood Pressure : / mmHG Vent. Rate : 078 BPM Atrial Rate : 078 BPM P-R Int : 182 ms QRS Dur : 082 ms QT Int : 326 ms P-R-T Axes : 030 006 005 degrees QTc Int : 371 ms Normal sinus rhythm Cannot rule out Inferior infarct , age undetermined Abnormal ECG No previous ECGs available Referred By: Roula Barger Electronically Signed By:EMMA MEJIA
--- NOTE | 2021-02-16 14:59 | ED_ITS ---
HPI - Fall General Chief Complaint: Fall Stated Complaint: [facility] FALL Time Seen by Provider: 02/16/21 14:42 Source: patient and family Mode of arrival: EMS Limitations: altered mental status (dementia normally oriented to self) History of Present Illness MD complaint: fall Onset (ago): minute(s) Fall from: standing Fall witnessed: no (but patient stood up and they heard a thud seen on the floor) Place fall occurred: home Loss of consciousness: none Prolonged down time: no Symptoms prior to fall: none Context: history of frequent falls Location of injury: head Severity: mild Quality: dull Associated symptoms (after fall): denies Related Data Previous Rx's Medication Instructions Recorded acetaminophen 325 mg tablet 650 mg PO Q6H 30 Days #240 tab 02/03/21 amlodipine 2.5 mg tablet 2.5 mg PO DAILY 30 Days #30 tab 02/03/21 carbidopa 25 mg-levodopa 100 mg 1 tab PO TID 30 Days #90 tab 02/03/21 tablet folic acid 1 mg tablet 1 mg PO DAILY 30 Days #30 tab 02/03/21 ibuprofen 600 mg tablet 600 mg PO Q6H PRN 30 Days #90 tab 02/03/21 levothyroxine 75 mcg tablet 75 mcg PO DAILY@0600 30 Days #30 02/03/21 tab olanzapine 10 mg tablet 10 mg PO BEDTIME 30 Days #30 tab 02/03/21 trazodone 50 mg tablet 50 mg PO BEDTIME PRN 30 Days #30 02/03/21 tab trolamine salicylate-aloe vera 10 1 appl TOPICAL TID 30 Days #30 g 02/03/21 % topical cream (Aspercreme with Aloe) valproic acid (as sodium salt) 250 500 mg PO BID 30 Days #600 ml 02/03/21 mg/5 mL (5 mL) oral solution Allergies Allergy/AdvReac Type Severity Reaction Status Date / Time thioridazine [From Mellaril] Allergy Unknown Unknown Verified 12/22/20 13:25 Review of Systems Review of Systems: ROS unable to be obtained due to altered mental status [facility] Past Medical History Attestation statement: The following information was validated with the patient. Medical History (Updated 02/16/21 @ 15:52 by Roula Barger DO) Dementia Hypertension Hypothyroidism Renal insufficiency Social History Social History Household Members: Spouse Housing: House Do you presently have visiting nurse or other home services: No Alcohol intake: unknown Patient Tobacco Use Status: Never used Tobacco e-Cigarette/Vaping Use: Never Used Use of substances other than those prescribed or required for medical reasons: No Advance Directives: No Advance Directives Information Provided: Yes service: No Sexual orientation: Straight/Heterosexual Physical Exam Vital Signs: Vital Signs: Last Vital Signs Temp 98.5 F 02/16/21 14:35 Pulse 75 02/16/21 14:35 Resp 15 02/16/21 14:35 BP 156/73 H 02/16/21 14:35 Pulse Ox 96 02/16/21 14:35 Body Mass Index 27.4 Appearance: Alert. Oriented X1. No acute distress. Eyes: Pupils equal, round and reactive to light. ENT: Pharynx normal. hematoma noted to posterior scalp Neck: Normal inspection. Neck supple. CVS: Normal heart rate and rhythm. Pulses normal. Respiratory: No respiratory distress. Breath sounds normal. Abdomen: Soft and non-tender. Skin: Skin warm and dry. Normal skin color. Normal skin turgor. Extremities: No lower extremity edema. No calf ttp Neuro: Oriented X 1. No motor deficit. No sensory deficit. Course Course Course Narrative: signed out pending CT scans MDM - Fall MDM Narrative Medical decision making narrative: 75 yo female with hx of HTN, dementia, hypothyroidism comes in with c/o fall after standing at home - has hematoma to head no AC therapy noted denies any other injuries on exam - labs, EKG, CT head/cspine ordered for trauma Lab Data Result diagrams: 02/16/21 15:04 02/16/21 15:04 Labs: Lab Results 02/16/21 02/16/21 02/16/21 Range/Units 15:04 15:04 15:04 WBC 5.5 (4.8-10.8) X10*3/uL RBC 2.87 L (4.20-5.50) X10*6/uL Hgb 8.9 L (12.0-16.0) g/dl Hct 28.4 L (37-47) % MCV 99.0 H (80-98) fL MCH 31.0 (27.0-33.0) pg MCHC 31.3 (31.0-35.0) g/dl RDW 15.9 (11.0-16.0) % Plt Count 225 (160-400) X10*3/uL MPV 9.7 (9.4-12.3) fL Immature Gran % (Auto) 0.5 H (0.0-0.4) % Neut % (Auto) 59.7 (45-73) % Lymph % (Auto) 22.5 (20-40) % [place] % (Auto) 12.5 H (2-11) % Eos % (Auto) 4.3 H (0-4) % Baso % (Auto) 0.5 (0-2) % Lymph # (Auto) 1.2 (1.2-4.9) X10*3/uL [place] # (Auto) 0.7 (0.1-1.2) X10*3/uL Eos # (Auto) 0.2 (0.0-0.4) X10*3/uL Baso # (Auto) 0.0 (0.0-0.2) X10*3/uL Abs Immat Gran (auto) 0.03 (0.00-0.03) X10*3/uL Absolute Neuts (auto) 3.3 (2.0-8.3) X10*3/uL Absolute Nucleated RBC 0.000 (0.0-0.012) X10*3/uL Nucleated RBC % (auto) 0.0 (0.0-0.2) /100WBC Sodium 143 (135-145) mmol/L Potassium 4.7 (3.3-5.1) mmol/L Chloride 115 H (96-108) mmol/L Carbon Dioxide 19 L (22-29) mmol/L Anion Gap 14 (12-20) BUN 29 H (9-16) mg/dL Creatinine 2.68 H (0.5-1.4) mg/dL Estim Creat Clear Calc 16.6 Estimated GFR 17 Random Glucose 146 H (60-115) mg/dL Calcium 9.1 (8.4-10.2) mg/dL Magnesium 2.1 (1.6-2.6) mg/dL Total Bilirubin < 0.2 (0.0-1.0) mg/dL Direct Bilirubin < 0.2 (0.0-0.5) mg/dL AST 8 D (5-31) U/L ALT < 6 (0-31) U/L Alkaline Phosphatase 72 D (39-117) U/L Troponin I High Sens (<3.5-17.0) ng/L Total Protein 5.9 L (6.5-8.0) g/dL Albumin 3.6 (3.5-5.0) g/dL COVID-19 ([facility]) Negative (Negative) COVID-19 Clin Com See Note 02/16/21 Range/Units 15:04 WBC (4.8-10.8) X10*3/uL RBC (4.20-5.50) X10*6/uL Hgb (12.0-16.0) g/dl Hct (37-47) % MCV (80-98) fL MCH (27.0-33.0) pg MCHC (31.0-35.0) g/dl RDW (11.0-16.0) % Plt Count (160-400) X10*3/uL MPV (9.4-12.3) fL Immature Gran % (Auto) (0.0-0.4) % Neut % (Auto) (45-73) % Lymph % (Auto) (20-40) % [place] % (Auto) (2-11) % Eos % (Auto) (0-4) % Baso % (Auto) (0-2) % Lymph # (Auto) (1.2-4.9) X10*3/uL [place] # (Auto) (0.1-1.2) X10*3/uL Eos # (Auto) (0.0-0.4) X10*3/uL Baso # (Auto) (0.0-0.2) X10*3/uL Abs Immat Gran (auto) (0.00-0.03) X10*3/uL Absolute Neuts (auto) (2.0-8.3) X10*3/uL Absolute Nucleated RBC (0.0-0.012) X10*3/uL Nucleated RBC % (auto) (0.0-0.2) /100WBC Sodium (135-145) mmol/L Potassium (3.3-5.1) mmol/L Chloride (96-108) mmol/L Carbon Dioxide (22-29) mmol/L Anion Gap (12-20) BUN (9-16) mg/dL Creatinine (0.5-1.4) mg/dL Estim Creat Clear Calc Estimated GFR Random Glucose (60-115) mg/dL Calcium (8.4-10.2) mg/dL Magnesium (1.6-2.6) mg/dL Total Bilirubin (0.0-1.0) mg/dL Direct Bilirubin (0.0-0.5) mg/dL AST (5-31) U/L ALT (0-31) U/L Alkaline Phosphatase (39-117) U/L Troponin I High Sens < 3.5 (<3.5-17.0) ng/L Total Protein (6.5-8.0) g/dL Albumin (3.5-5.0) g/dL COVID-19 ([facility]) (Negative) COVID-19 Clin Com ECG Data Attestation: I personally reviewed and interpreted this ECG as follows: ECG interpretation date: 02/16/21 ECG interpretation time: 15:01 Interpretation: Rate: 78 Rhythm: NSR [place]: normal Normal P waves. Normal PRERNA. Normal QRS complex. ST T wave : normal no JONATHAN qTC: normal prior studies: normal The study has been interpreted contemporaneously by me. . Discharge Plan Discharge Clinical Impression: Hematoma Fall Qualifiers: Encounter type: initial encounter Qualified Code(s): W19.XXXA - Unspecified fall, initial encounter Instructions: Fall Prevention for Older Adults (ED), Hematoma (ED) Prescriptions: No Action acetaminophen 325 mg Tablet 650 mg PO Q6H 30 Days Qty: 240 RF: 0 trazodone 50 mg Tablet 50 mg PO BEDTIME PRN (Reason: Insomnia) 30 Days Qty: 30 RF: 0 olanzapine 10 mg Tablet 10 mg PO BEDTIME 30 Days Qty: 30 RF: 0 amlodipine 2.5 mg Tablet 2.5 mg PO DAILY 30 Days Qty: 30 RF: 0 levothyroxine 75 mcg Tablet 75 mcg PO DAILY@0600 30 Days Qty: 30 RF: 0 folic acid 1 mg Tablet 1 mg PO DAILY 30 Days Qty: 30 RF: 0 ibuprofen 600 mg Tablet 600 mg PO Q6H PRN (Reason: Pain, Moderate (Pain Scale 4-6) 30 Days Qty: 90 RF: 0 carbidopa-levodopa 25-100 mg Tablet 1 tab PO TID 30 Days Qty: 90 RF: 0 Aspercreme with Aloe 10 % Cream 1 appl topical TID 30 Days Qty: 30 RF: 0 valproic acid (as sodium salt) 250 mg/5 mL (5 mL) Solution 500 mg PO BID 30 Days Qty: 600 RF: 0
[2021-02-16 15:08] LABS: MANUAL DIFF FLAG NO
[2021-02-16 15:11] LABS: Basophils Percent Auto 0.5 % (0-2); Eosinophils Absolute Auto 0.2 X10*3/uL (0.0-0.4); Eosinophils Percent Auto 4.3 % (0-4); Hematocrit 28.4 % (37-47); Hemoglobin 8.9 g/dl (12.0-16.0); Imm Gran Abs Auto 0.03 X10*3/uL (0.00-0.03); Imm Gran Pct Auto 0.5 % (0.0-0.4); Lymphocytes Absolute Auto 1.2 X10*3/uL (1.2-4.9); Lymphocytes Percent Auto 22.5 % (20-40); Mean Corpuscular HGB Conc 31.3 g/dl (31.0-35.0); Mean Platelet Volume 9.7 fL (9.4-12.3); Monocytes Absolute Auto 0.7 X10*3/uL (0.1-1.2); Monocytes Percent Auto 12.5 % (2-11); Neutrophils Absolute Auto 3.3 X10*3/uL (2.0-8.3); Neutrophils Percent Auto 59.7 % (45-73); Platelet Count 225 X10*3/uL (160-400); Red Blood Count 2.87 X10*6/uL (4.20-5.50); Red Cell Distribution Width 15.9 % (11.0-16.0); White Blood Count 5.5 X10*3/uL (4.8-10.8)
[2021-02-16 15:27] LABS: Alanine Aminotransferase < 6 U/L (0-31); Albumin Level 3.6 g/dL (3.5-5.0); Alkaline Phosphatase 72 U/L (39-117); Anion Gap 14 (12-20); Aspartate Amino Transferase 8 U/L (5-31); Bilirubin Direct < 0.2 mg/dL (0.0-0.5); Bilirubin Total < 0.2 mg/dL (0.0-1.0); Blood Urea Nitrogen 29 mg/dL (9-16); COVID-19 Test Negative (Negative); Calcium 9.1 mg/dL (8.4-10.2); Carbon Dioxide 19 mmol/L (22-29); Chloride 115 mmol/L (96-108); Creatinine Clr Calc Pharmacy 16.6; Estimated Glomerular Filt Rate 17; Glucose Random 146 mg/dL (60-115); Magnesium 2.1 mg/dL (1.6-2.6); Potassium 4.7 mmol/L (3.3-5.1); Sodium 143 mmol/L (135-145); Total Protein 5.9 g/dL (6.5-8.0)
[2021-02-16 15:32] LABS: Troponin-I High Sensitivity < 3.5 ng/L (<3.5-17.0)
== END 2021-02-16 17:11 | disposition home or self-care (01) ==
PROVIDERS: Emergency Provider Emergency Medicine; PCP Internal Medicine
DX: S00.93XA Contusion of unspecified part of head, initial encounter (principal); G44.309 Post-traumatic headache, unspecified, not intractable; M54.2 Cervicalgia; W01.0XXA Fall on same level from slipping, tripping and stumbling without subsequent striking against object, initial encounter; Y93.9 Activity, unspecified; Y92.9 Unspecified place or not applicable; Y99.9 Unspecified external cause status; Z20.822 Contact with and (suspected) exposure to COVID-19; Z91.81 History of falling; Z79.899 Other long term (current) drug therapy
CPT/HCPCS: 36415; 70450; 72125; 80048; 80076; 83735; 84484; 85025; 87635; 93005; 99284

== ENCOUNTER → 2021-06-30 15:06 | Outpatient (BNVA) | payer MEDICARE, BC, SELFPAY | PROVIDERS: PCP Internal Medicine; Visit Provider Psychiatry & Neurology Neurology | DX: G21.19 Other drug induced secondary parkinsonism (principal) | CPT/HCPCS: Q3014 ==

== ENCOUNTER → 2021-08-30 08:57 | Outpatient (BNVA) | payer MEDICARE, BC, SELFPAY | PROVIDERS: PCP Internal Medicine; Visit Provider Psychiatry & Neurology Neurology | DX: G21.19 Other drug induced secondary parkinsonism (principal) | CPT/HCPCS: 99212 ==